=== PATIENT | female | born 1955 | race Two or more races ===

== ENCOUNTER 2016-07-08 09:26 | Emergency (ER) | payer MEDICAID ==
[~2016-07-08] VITALS: Ht 152.4 cm; Wt 88.9 kg
[~2016-07-08 09:26] MED LIST: ALB5IS INH; LEVO75TA42 PO; METF500T5 PO; OMEP20CA5 PO; VALS160T51 PO; ZOLP-158
[2016-07-08 09:30] VITALS: BP 159/70
[2016-07-08] MEDS ORDERED: KETOROLAC TROMETH 60MG/2ML VIAL IM ONE (11:45)
== END 2016-07-08 12:33 | disposition home or self-care (01) ==
LOC: ER 09:27
DX: M47.892 Other spondylosis, cervical region (principal); M50.30 Other cervical disc degeneration, unspecified cervical region; J45.909 Unspecified asthma, uncomplicated; E11.9 Type 2 diabetes mellitus without complications; K21.9 Gastro-esophageal reflux disease without esophagitis; E78.5 Hyperlipidemia, unspecified; I10 Essential (primary) hypertension; E07.89 Other specified disorders of thyroid; Z90.49 Acquired absence of other specified parts of digestive tract; Z90.89 Acquired absence of other organs; Z90.710 Acquired absence of both cervix and uterus; Z88.2 Allergy status to sulfonamides
CPT/HCPCS: 72040; 96372; 99284; J1885

== ENCOUNTER 2016-08-23 16:38 | Observation (INO) | payer MEDICAID ==
[~2016-08-23] VITALS: Ht 160 cm; Wt 84.4 kg
[2016-08-23] MEDS ORDERED: HYDROcodone-ACET 10/325MG TAB PO ONE (20:15)
[2016-08-23 20:17] LABS: Basophils # (auto) 0 uL; Basophils % (auto) 0.5 % (0.0-2.0); Eosinophils # (auto) 0.3 uL; Eosinophils % (auto) 3.4 % (0.0-7.0); Hematocrit 41.4 % (36.0-46.0); Hemoglobin 13.8 g/dL (12.2-16.2); Lymphocytes # (auto) 3.7 uL; Lymphocytes % (auto) 44.4 % (10.0-50.0); Mean Corpuscular Hgb Conc. 33.4 g/dL (32.0-36.0); Mean Corpuscular Volume 89.7 fL (80.0-100.0); Mean Platelet Volume 9.3 fL (7.4-10.4); Monocytes # (auto) 0.6 uL; Monocytes % (auto) 7.5 % (0.0-12.0); Neutrophils # (auto) 3.7 uL; Neutrophils % (auto) 44.2 % (37.0-80.0); Platelet Count (auto) 226 10^3/uL (140-450); White Blood Cell 8.3 10^3/uL (4.4-10.8)
[2016-08-23 20:17] LABS: Urine Bilirubin Negative (Negative); Urine Blood Negative /uL (Negative); Urine Color Yellow (Yellow); Urine Glucose Normal (Normal); Urine Ketone Negative (Negative); Urine Nitrite Negative (Negative); Urine RBC <1 /hpf (0 - 4); Urine Squamous Epithelial Cell FEW /hpf (<5); Urine Urobilinogen Normal (Negative)
[2016-08-23 20:40] LABS: INR 0.96 (0.9-1.15); Partial Thromboplastin Time 26.2 sec (22.64-33.71); Prothrombin Time 10.4 sec (9.37-12.3)
[2016-08-23 20:43] LABS: B-Type Natriuretic Peptide 6.76 pg/mL (0-100)
[2016-08-23 20:44] LABS: Albumin 3.6 g/dL (3.4-5.0); Alkaline Phosphatase 86 U/L (45-117); Anion Gap 10 (5-15); Aspartate Aminotransferase 46 U/L (15-37); BUN/Creatinine Ratio 17.9; Bilirubin, Total 0.4 mg/dL (0.2-1.0); Blood Urea Nitrogen 14 mg/dL (7-18); Calcium 9.2 mg/dL (8.5-10.1); Carbon Dioxide 24 mmol/L (21-32); Chloride 108 mmol/L (98-107); GFR African American 96 mL/min; GFR Non-African American 80 mL/min; Glucose 156 mg/dL (74-106); Magnesium 2.1 mg/dL (1.6-2.6); Sodium 142 mmol/L (136-145); Total Protein 7.8 g/dL (6.4-8.2)
[2016-08-23 20:57] LABS: Temperature: 22.9 C (20.0-25.0)
[2016-08-23 21:46] VITALS: BP 113/55
== END 2016-08-23 21:47 | disposition home or self-care (01) | DRG 203 ==
LOC: ER 16:47 → OVERFLOW 19:57 → ER 21:47
PROVIDERS: ADMIT Family Medicine; ATTEND Family Medicine
DX: R07.89 Other chest pain (principal); I10 Essential (primary) hypertension; E78.5 Hyperlipidemia, unspecified; E03.9 Hypothyroidism, unspecified; E11.9 Type 2 diabetes mellitus without complications
CPT/HCPCS: 36415; 71020; 71101; 80053; 81001; 83735; 83880; 84443; 84484; 85025; 85379; 85610; 85730; 93005; 99285; G0378

== ENCOUNTER 2017-07-25 10:08 | Emergency (ER) | payer MEDICAID ==
[~2017-07-25] VITALS: Ht 152.4 cm; Wt 81.6 kg
[~2017-07-25 10:08] MED LIST changes: -OMEP20CA5 PO; +OMEP20CA74 PO
[2017-07-25 11:32] LABS: Urine Bacteria FEW /hpf (None Seen); Urine Blood Negative /uL (Negative); Urine Mucus FEW (None Seen); Urine Specific Gravity 1.017 (1.001-1.035); Urine WBC 3 /hpf (0 - 5)
[2017-07-25 11:59] LABS: Basophils # (auto) 0.1 uL; Basophils % (auto) 1.2 % (0.0-2.0); Eosinophils # (auto) 0.1 uL; Hematocrit 42.7 % (36.0-46.0); Hemoglobin 14.5 g/dL (12.2-16.2); Lymphocytes # (auto) 2.5 uL; Lymphocytes % (auto) 37.9 % (10.0-50.0); Mean Corpuscular Hemoglobin 31.2 pg (28.0-32.0); Mean Corpuscular Hgb Conc. 33.9 g/dL (32.0-36.0); Mean Corpuscular Volume 92.1 fL (80.0-100.0); Monocytes # (auto) 0.5 uL; Monocytes % (auto) 7.7 % (0.0-12.0); Neutrophils # (auto) 3.3 uL; Neutrophils % (auto) 51.2 % (37.0-80.0); Nucleated Red Blood Cells % 0.2 %; Platelet Count (auto) 249 10^3/uL (140-450); Red Blood Cells 4.63 10^6/uL (4.0-5.20); Red Cell Distribution Width 14.3 % (11.8-14.3); White Blood Cell 6.5 10^3/uL (4.4-10.8)
[2017-07-25 12:20] VITALS: BP 144/70
[2017-07-25 12:21] LABS: Albumin 3.8 g/dL (3.4-5.0); BUN/Creatinine Ratio 16.2; Bilirubin, Total 0.6 mg/dL (0.2-1.0); Calcium 9.3 mg/dL (8.5-10.1); Potassium 4.3 mmol/L (3.5-5.1); Total Protein 8.1 g/dL (6.4-8.2)
== END 2017-07-25 12:37 | disposition home or self-care (01) ==
LOC: ER 10:08
DX: N39.0 Urinary tract infection, site not specified (principal); E11.9 Type 2 diabetes mellitus without complications; I10 Essential (primary) hypertension; E07.89 Other specified disorders of thyroid; J45.909 Unspecified asthma, uncomplicated; Z90.89 Acquired absence of other organs; Z90.710 Acquired absence of both cervix and uterus
CPT/HCPCS: 36415; 74176; 80053; 81001; 83690; 85025; 93005

== ENCOUNTER 2017-08-06 01:08 | Emergency (ER) | payer MEDICAID ==
[~2017-08-06] VITALS: Ht 152.4 cm; Wt 81.6 kg
[2017-08-06] MEDS ORDERED: ALBUTEROL SULF 2.5 MG/0.5ML(0.5%) NEB SOLN NEB ONE ×2 (02:00→11:45)
[2017-08-06] MEDS ORDERED: IPRATROPIUM BROM 0.5 MG/2.5ML INH SOL NEB ONE ×2 (02:00→11:45)
[2017-08-06 02:43] LABS: Basophils # (auto) 0.1 uL; Basophils % (auto) 0.7 % (0.0-2.0); Eosinophils # (auto) 0.2 uL; Eosinophils % (auto) 2.4 % (0.0-7.0); Hematocrit 43.1 % (36.0-46.0); Hemoglobin 14.5 g/dL (12.2-16.2); Lymphocytes # (auto) 3.5 uL; Lymphocytes % (auto) 42.4 % (10.0-50.0); Mean Corpuscular Hgb Conc. 33.7 g/dL (32.0-36.0); Monocytes # (auto) 0.7 uL; Monocytes % (auto) 8.4 % (0.0-12.0); Neutrophils # (auto) 3.9 uL; Neutrophils % (auto) 46.1 % (37.0-80.0); Nucleated Red Blood Cells % 0.1 %; Platelet Count (auto) 232 10^3/uL (140-450); Red Blood Cells 4.69 10^6/uL (4.0-5.20); Red Cell Distribution Width 14.6 % (11.8-14.3); White Blood Cell 8.4 10^3/uL (4.4-10.8)
[2017-08-06 03:11] LABS: INR 0.93 (0.9-1.15); Partial Thromboplastin Time 27.1 sec (22.64-33.71); Prothrombin Time 10.1 sec (9.37-12.3)
[2017-08-06 03:20] LABS: Alanine Aminotransferase 50 U/L (13-56); Albumin 3.6 g/dL (3.4-5.0); Anion Gap 8 (5-15); Aspartate Aminotransferase 35 U/L (15-37); BUN/Creatinine Ratio 19.4; Blood Urea Nitrogen 14 mg/dL (7-18); Calcium 8.8 mg/dL (8.5-10.1); Carbon Dioxide 25 mmol/L (21-32); Chloride 107 mmol/L (98-107); GFR African American 105 mL/min; GFR Non-African American 87 mL/min; Glucose 145 mg/dL (74-106); Magnesium 1.8 mg/dL (1.6-2.6); Potassium 4.2 mmol/L (3.5-5.1); Sodium 140 mmol/L (136-145)
[2017-08-06 03:25] LABS: Alkaline Phosphatase 89 U/L (45-117); Bilirubin, Total 0.4 mg/dL (0.2-1.0); Total Protein 7.8 g/dL (6.4-8.2)
[2017-08-06 08:38] LABS: Urine Bacteria NONE SEEN /hpf (None Seen); Urine Blood Negative /uL (Negative); Urine Mucus FEW (None Seen); Urine Specific Gravity 1.023 (1.001-1.035); Urine WBC 4 /hpf (0 - 5)
[2017-08-06 11:31] VITALS: BP 130/58
[2017-08-06] MEDS ORDERED: PROMETHAZINE W/CODEINE 5 ML ORAL SYRUP PO ONE (11:45)
== END 2017-08-06 12:51 | disposition home or self-care (01) ==
LOC: ER 01:10
DX: J45.901 Unspecified asthma with (acute) exacerbation (principal); G89.29 Other chronic pain; E11.9 Type 2 diabetes mellitus without complications; I10 Essential (primary) hypertension; E03.9 Hypothyroidism, unspecified; F41.9 Anxiety disorder, unspecified; K21.9 Gastro-esophageal reflux disease without esophagitis
CPT/HCPCS: 36415; 71045; 80053; 81001; 83735; 83880; 84484; 85025; 85610; 85730; 93005; 94640

== ENCOUNTER 2017-10-16 19:22 | Emergency (ER) | payer MEDICAID ==
[~2017-10-16] VITALS: Ht 152.4 cm; Wt 84.4 kg
[2017-10-16] MEDS ORDERED: SODIUM CHLORIDE 0.9% 500 ML IVB ONE (20:04)
[2017-10-16] MEDS ORDERED: HYDROmorphone HCL 2 MG/ML VL IV ONE (20:15)
[2017-10-16] MEDS ORDERED: ONDANSETRON HCL 4 MG/2 ML VIAL IV ONE (20:15)
[2017-10-16 20:24] LABS: Basophils # (auto) 0 uL; Basophils % (auto) 0.5 % (0.0-2.0); Eosinophils # (auto) 0.1 uL; Eosinophils % (auto) 1.5 % (0.0-7.0); Hematocrit 43.4 % (36.0-46.0); Hemoglobin 14.7 g/dL (12.2-16.2); Lymphocytes % (auto) 36.7 % (10.0-50.0); Mean Corpuscular Hemoglobin 31.3 pg (28.0-32.0); Mean Corpuscular Volume 92.1 fL (80.0-100.0); Monocytes # (auto) 0.6 uL; Monocytes % (auto) 7.4 % (0.0-12.0); Neutrophils # (auto) 4.4 uL; Neutrophils % (auto) 53.9 % (37.0-80.0); Nucleated Red Blood Cells % 0.5 %; Platelet Count (auto) 245 10^3/uL (140-450); Red Blood Cells 4.71 10^6/uL (4.0-5.20); Red Cell Distribution Width 14.2 % (11.8-14.3); White Blood Cell 8.2 10^3/uL (4.4-10.8)
[2017-10-16 20:31] LABS: INR 0.95 (0.9-1.15); Partial Thromboplastin Time 28.8 sec (23.78-33.04); Prothrombin Time 10.2 sec (9.27-12.13)
[2017-10-16 21:01] LABS: Alanine Aminotransferase 53 U/L (13-56); Albumin 3.7 g/dL (3.4-5.0); Alkaline Phosphatase 94 U/L (45-117); Amylase 22 U/L (25-115); Anion Gap 12 (5-15); Aspartate Aminotransferase 46 U/L (15-37); BUN/Creatinine Ratio 14.3; Bilirubin, Total 0.5 mg/dL (0.2-1.0); Blood Urea Nitrogen 12 mg/dL (7-18); Calcium 8.8 mg/dL (8.5-10.1); Carbon Dioxide 23 mmol/L (21-32); Chloride 103 mmol/L (98-107); GFR African American 88 mL/min; GFR Non-African American 73 mL/min; Glucose 236 mg/dL (74-106); Lipase 124 U/L (73-393); Magnesium 2.1 mg/dL (1.6-2.6); Potassium 4.4 mmol/L (3.5-5.1); Sodium 138 mmol/L (136-145); Total Protein 7.9 g/dL (6.4-8.2)
[2017-10-16 22:52] VITALS: BP 114/63
[2017-10-16] MEDS ORDERED: HYDROcodone-ACET 7.5/325MG TAB PO ONE (23:00)
[2017-10-16 23:01] LABS: Urine Bacteria FEW /hpf (None Seen); Urine Blood Negative /uL (Negative); Urine WBC 8 /hpf (0 - 5)
[2017-10-16] MEDS ORDERED: cefTRIAXone 1GM/10ml IVPUSH 10 ML IV ONE (23:15)
== END 2017-10-16 23:47 | disposition home or self-care (01) ==
LOC: ER 19:22
DX: R10.84 Generalized abdominal pain (principal); E11.9 Type 2 diabetes mellitus without complications; I10 Essential (primary) hypertension; J45.909 Unspecified asthma, uncomplicated; K21.9 Gastro-esophageal reflux disease without esophagitis; E78.5 Hyperlipidemia, unspecified; Z90.49 Acquired absence of other specified parts of digestive tract; Z90.710 Acquired absence of both cervix and uterus
CPT/HCPCS: 36415; 74176; 80053; 81001; 82150; 83690; 83735; 84484; 85025; 85610; 85730; 94761; 96374; 96375; 99285; J1170; J2405; J7030; 93005

== ENCOUNTER 2017-12-31 16:47 | Inpatient (IN) | payer MEDICAID ==
[~2017-12-31] VITALS: Ht 152.4 cm; Wt 85.5 kg
[2017-12-31 17:45] LABS: Urine Bacteria NONE SEEN /hpf (None Seen); Urine Blood Negative /uL (Negative); Urine Mucus FEW (None Seen); Urine Specific Gravity 1.006 (1.001-1.035); Urine WBC 1 /hpf (0 - 5)
[2017-12-31 18:07] LABS: Basophils # (auto) 0.1 uL; Basophils % (auto) 1.1 % (0.0-2.0); Eosinophils # (auto) 0.1 uL; Eosinophils % (auto) 1.1 % (0.0-7.0); Hematocrit 42.2 % (36.0-46.0); Hemoglobin 14.2 g/dL (12.2-16.2); Lymphocytes % (auto) 23.4 % (10.0-50.0); Mean Corpuscular Hgb Conc. 33.6 g/dL (32.0-36.0); Monocytes # (auto) 1.1 uL; Monocytes % (auto) 8.7 % (0.0-12.0); Neutrophils # (auto) 8.4 uL; Neutrophils % (auto) 65.7 % (37.0-80.0); Nucleated Red Blood Cells % 0.1 %; Platelet Count (auto) 229 10^3/uL (140-450); Red Blood Cells 4.59 10^6/uL (4.0-5.20); Red Cell Distribution Width 14.8 % (11.8-14.3); White Blood Cell 12.7 10^3/uL (4.4-10.8)
[2017-12-31 18:26] LABS: Alanine Aminotransferase 66 U/L (13-56); Albumin 3.8 g/dL (3.4-5.0); Amylase 20 U/L (25-115); Anion Gap 13 (5-15); Aspartate Aminotransferase 67 U/L (15-37); BUN/Creatinine Ratio 17.5; Blood Urea Nitrogen 17 mg/dL (7-18); Calcium 9.4 mg/dL (8.5-10.1); Carbon Dioxide 22 mmol/L (21-32); Chloride 104 mmol/L (98-107); GFR African American 75 mL/min; GFR Non-African American 62 mL/min; Glucose 130 mg/dL (74-106); Lipase 102 U/L (73-393); Magnesium 1.9 mg/dL (1.6-2.6); Potassium 4.1 mmol/L (3.5-5.1); Sodium 139 mmol/L (136-145)
[2017-12-31 18:32] LABS: Alkaline Phosphatase 72 U/L (45-117); Bilirubin, Total 0.7 mg/dL (0.2-1.0); Total Protein 7.9 g/dL (6.4-8.2)
[2017-12-31] MEDS ORDERED: PROMETHAZINE HCL 25 MG/ML 1ML IV ONE (19:00)
[2017-12-31] MEDS ORDERED: MORPHINE SULFATE 4 MG/ML SYR/VIAL IV ONE (19:00)
[2017-12-31] MEDS ORDERED: SODIUM CHLORIDE 0.9% 500 ML IV ONE (19:00)
[2017-12-31] MEDS ORDERED: ZOLPIDEM TARTRATE 5 MG TAB PO PRN (21:00)
[2017-12-31] MEDS ORDERED: ACETAMINOPHEN 500 MG TAB PO PRN (21:00)
[2017-12-31] MEDS ORDERED: metroNIDAZOLE 500MG/100ML 100 ML IV ONE (22:15)
[2017-12-31] MEDS: HYDROcodone-ACET 5/325MG TAB PO PRN (23:19)
[2017-12-31] MEDS: SODIUM CHLORIDE 0.9% 1,000 ML IV SCH (23:25)
[2017-12-31 23:28] VITALS: BP 146/78
[2018-01-01] MEDS ORDERED: HYDR-531 PO (01:00)
[2018-01-01] MEDS ORDERED: LEVO112T35 PO (01:00)
[2018-01-01] MEDS ORDERED: LOSA100T27 PO (01:00)
[2018-01-01] MEDS ORDERED: METF-370 PO (01:00)
[2018-01-01] MEDS: PROMETHAZINE HCL 25 MG/ML 1ML IV PRN ×3 (03:58→09:04)
[2018-01-01] MEDS: MORPHINE SULF INJ 2 MG/ML SYRINGE 1ML IV PRN ×2 (03:58)
[2018-01-01 05:00] VITALS: BP 131/69
[2018-01-01] MEDS: LEVOTHYROXINE SODIUM 112 MCG TAB PO SCH (06:45)
[2018-01-01] MEDS ORDERED: LEVOTHYROXINE SODIUM 112 MCG TAB PO SCH (07:00)
[2018-01-01 07:32] LABS: Basophils # (auto) 0.1 uL; Basophils % (auto) 0.9 % (0.0-2.0); Eosinophils # (auto) 0.1 uL; Eosinophils % (auto) 0.8 % (0.0-7.0); Hematocrit 38.8 % (36.0-46.0); Hemoglobin 13.1 g/dL (12.2-16.2); Lymphocytes # (auto) 2.8 uL; Mean Corpuscular Hemoglobin 31.2 pg (28.0-32.0); Mean Corpuscular Hgb Conc. 33.8 g/dL (32.0-36.0); Mean Corpuscular Volume 92.5 fL (80.0-100.0); Monocytes % (auto) 11.4 % (0.0-12.0); Neutrophils # (auto) 4.8 uL; Neutrophils % (auto) 54.9 % (37.0-80.0); Nucleated Red Blood Cells % 0.1 %; Platelet Count (auto) 186 10^3/uL (140-450); Red Blood Cells 4.19 10^6/uL (4.0-5.20); Red Cell Distribution Width 14.8 % (11.8-14.3); White Blood Cell 8.7 10^3/uL (4.4-10.8)
[2018-01-01 07:45] LABS: BUN/Creatinine Ratio 14.4; Calcium 8.5 mg/dL (8.5-10.1); Potassium 4.1 mmol/L (3.5-5.1)
[2018-01-01 08:30] VITALS: BP 116/63
[2018-01-01] MEDS: LOSARTAN POTASSIUM 50 MG TAB PO SCH (09:05)
[2018-01-01] MEDS: SODIUM CHLORIDE 0.9% 1,000 ML IV SCH (09:10)
[2018-01-01] MEDS: HYDROcodone-ACET 5/325MG TAB PO PRN ×2 (11:12→18:08)
[2018-01-01 12:30] VITALS: BP 135/75
[2018-01-01 16:30] VITALS: BP 114/56
[2018-01-01] MEDS: cefTRIAXone 1GM/10ml IVPUSH 10 ML IV SCH (17:00)
[2018-01-01 22:00] VITALS: BP 129/71
[2018-01-02 05:00] VITALS: BP 136/70
[2018-01-02] MEDS: LEVOTHYROXINE SODIUM 112 MCG TAB PO SCH (06:20)
[2018-01-02 07:34] LABS: Basophils # (auto) 0.1 uL; Basophils % (auto) 0.8 % (0.0-2.0); Eosinophils # (auto) 0.2 uL; Eosinophils % (auto) 2.2 % (0.0-7.0); Hematocrit 37.7 % (36.0-46.0); Hemoglobin 12.9 g/dL (12.2-16.2); Lymphocytes # (auto) 2.1 uL; Lymphocytes % (auto) 29.2 % (10.0-50.0); Mean Corpuscular Hemoglobin 31.5 pg (28.0-32.0); Mean Corpuscular Hgb Conc. 34.1 g/dL (32.0-36.0); Mean Corpuscular Volume 92.3 fL (80.0-100.0); Monocytes # (auto) 0.7 uL; Monocytes % (auto) 9.3 % (0.0-12.0); Neutrophils # (auto) 4.3 uL; Neutrophils % (auto) 58.5 % (37.0-80.0); Platelet Count (auto) 179 10^3/uL (140-450); Red Blood Cells 4.09 10^6/uL (4.0-5.20); Red Cell Distribution Width 14.6 % (11.8-14.3); White Blood Cell 7.3 10^3/uL (4.4-10.8)
[2018-01-02 07:50] LABS: BUN/Creatinine Ratio 12.9; Calcium 8.4 mg/dL (8.5-10.1); Potassium 3.8 mmol/L (3.5-5.1)
[2018-01-02] MEDS: HYDROcodone-ACET 5/325MG TAB PO PRN ×3 (08:34→23:39)
[2018-01-02 09:00] VITALS: BP 139/71
[2018-01-02] MEDS: LOSARTAN POTASSIUM 50 MG TAB PO SCH (09:43)
[2018-01-02] MEDS: cefTRIAXone 1GM/10ml IVPUSH 10 ML IV SCH (09:47)
[2018-01-02] MEDS: SODIUM CHLORIDE 0.9% 1,000 ML IV SCH ×4 (09:47→18:06)
[2018-01-02] MEDS ORDERED: LACTULOSE 20Gm/30ML SOLN PO ONE (11:00)
[2018-01-02 13:00] VITALS: BP 140/72
[2018-01-02 17:00] VITALS: BP 133/72
[2018-01-02 22:00] VITALS: BP 155/82
[2018-01-03] MEDS: SODIUM CHLORIDE 0.9% 1,000 ML IV SCH ×2 (04:40→11:00)
[2018-01-03 05:00] VITALS: BP 158/79
[2018-01-03] MEDS: LEVOTHYROXINE SODIUM 112 MCG TAB PO SCH (05:50)
[2018-01-03] MEDS: HYDROcodone-ACET 5/325MG TAB PO PRN (05:56)
[2018-01-03 07:33] LABS: Calcium 8.2 mg/dL (8.5-10.1); Potassium 3.7 mmol/L (3.5-5.1)
[2018-01-03 09:00] VITALS: BP 142/72
[2018-01-03] MEDS: cefTRIAXone 1GM/10ml IVPUSH 10 ML IV SCH (09:27)
[2018-01-03] MEDS ORDERED: LACTULOSE 20Gm/30ML SOLN PO SCH (10:00)
[2018-01-03] MEDS ORDERED: AMLO5TAB2 PO (11:12)
[2018-01-03] MEDS ORDERED: GLIP-115 PO (11:12)
[2018-01-03] MEDS ORDERED: amLODIPine BESYLATE 5 MG TAB PO ONE (11:15)
[2018-01-03 13:00] VITALS: BP 140/70
== END 2018-01-03 13:50 | disposition home or self-care (01) | DRG 463 ==
LOC: ER 16:47 → OVERFLOW 16:48 → EAST 23:29
PROVIDERS: ADMIT Nurse Practitioner Family; ATTEND Internal Medicine
DX: N10 Acute pyelonephritis (principal); N17.0 Acute kidney failure with tubular necrosis; E87.2 Acidosis; K42.9 Umbilical hernia without obstruction or gangrene; K52.9 Noninfective gastroenteritis and colitis, unspecified; I10 Essential (primary) hypertension; E66.01 Morbid (severe) obesity due to excess calories; E11.9 Type 2 diabetes mellitus without complications; E03.9 Hypothyroidism, unspecified; J45.909 Unspecified asthma, uncomplicated; K21.9 Gastro-esophageal reflux disease without esophagitis; Z82.49 Family history of ischemic heart disease and other diseases of the circulatory system; Z82.5 Family history of asthma and other chronic lower respiratory diseases; Z83.3 Family history of diabetes mellitus; Z80.0 Family history of malignant neoplasm of digestive organs; Z90.710 Acquired absence of both cervix and uterus; Z90.49 Acquired absence of other specified parts of digestive tract; Z87.440 Personal history of urinary (tract) infections; T38.3X5A Adverse effect of insulin and oral hypoglycemic [antidiabetic] drugs, initial encounter; Y92.89 Other specified places as the place of occurrence of the external cause; Z68.36 Body mass index [BMI] 36.0-36.9, adult; Z88.1 Allergy status to other antibiotic agents; Z88.2 Allergy status to sulfonamides
CPT/HCPCS: 36415; 74176; 76775; 80048; 80053; 81001; 82150; 82962; 83605; 83690; 83735; 84443; 84484; 85025; 87040; 87086; 93005; 94761; 96361; 96365; 96375; J0696; J3490

== ENCOUNTER 2018-02-15 09:52 | Emergency (ER) | payer MEDICAID ==
[~2018-02-15] VITALS: Ht 152.4 cm; Wt 83.0 kg
[~2018-02-15 09:52] MED LIST changes: +AMLO5TAB13 PO; +GLIP-115 PO; +HYDR-531 PO; +LEVO112T35 PO; -LEVO75TA42 PO; -METF500T5 PO; -VALS160T51 PO; -ZOLP-158
[2018-02-15 09:59] VITALS: BP 149/71
[2018-02-15] MEDS ORDERED: cefTRIAXone SOD 1,000 MG VL IM ONE (10:45)
== END 2018-02-15 11:14 | disposition home or self-care (01) ==
LOC: ER 09:52
DX: N39.0 Urinary tract infection, site not specified (principal); J45.909 Unspecified asthma, uncomplicated; E11.9 Type 2 diabetes mellitus without complications; K21.9 Gastro-esophageal reflux disease without esophagitis; E78.5 Hyperlipidemia, unspecified; I10 Essential (primary) hypertension; E07.9 Disorder of thyroid, unspecified; Z90.49 Acquired absence of other specified parts of digestive tract; Z90.710 Acquired absence of both cervix and uterus; Z88.2 Allergy status to sulfonamides; Z88.1 Allergy status to other antibiotic agents; Z79.84 Long term (current) use of oral hypoglycemic drugs; Z79.899 Other long term (current) drug therapy
CPT/HCPCS: 81002; 96372; 99283; J0696

== ENCOUNTER 2018-02-27 22:01 | Emergency (ER) | payer MEDICAID ==
[~2018-02-27] VITALS: Ht 152.4 cm; Wt 80.7 kg
[2018-02-27 22:49] VITALS: BP 147/79
[2018-02-28] MEDS ORDERED: KETOROLAC TROMETH 60MG/2ML VIAL IM ONE (03:00)
[2018-02-28] MEDS ORDERED: methylPREDNISolone SOD SUCC 125 MG/2 ML VL IM ONE (03:00)
[2018-02-28] MEDS ORDERED: ACETAMINOPHEN/CODEINE#3 (300/30mg) TAB PO ONE (03:45)
== END 2018-02-28 04:12 | disposition home or self-care (01) ==
LOC: ER 22:11
DX: S52.502A Unspecified fracture of the lower end of left radius, initial encounter for closed fracture (principal); J45.909 Unspecified asthma, uncomplicated; E11.9 Type 2 diabetes mellitus without complications; K21.9 Gastro-esophageal reflux disease without esophagitis; E78.5 Hyperlipidemia, unspecified; I10 Essential (primary) hypertension; Z90.49 Acquired absence of other specified parts of digestive tract; Z90.710 Acquired absence of both cervix and uterus; Z88.1 Allergy status to other antibiotic agents; Z88.2 Allergy status to sulfonamides; W01.0XXA Fall on same level from slipping, tripping and stumbling without subsequent striking against object, initial encounter; Y93.01 Activity, walking, marching and hiking; Y92.090 Kitchen in other non-institutional residence as the place of occurrence of the external cause; Y99.8 Other external cause status
CPT/HCPCS: 29125; 70450; 73030; 73070; 73100; 73120; 73560

== ENCOUNTER 2018-03-02 07:38 | Inpatient (IN) | payer MEDICAID ==
[~2018-03-02] VITALS: Ht 152.4 cm; Wt 74.5 kg
[2018-03-02] MEDS ORDERED: SODIUM CHLORIDE 0.9% 1,000 ML IV ONE (08:30)
[2018-03-02] MEDS ORDERED: metroNIDAZOLE 500 MG TAB PO ONE (08:30)
[2018-03-02] MEDS ORDERED: ONDANSETRON HCL 4 MG/2 ML VIAL IV ONE (08:30)
[2018-03-02 08:34] LABS: Urine Bacteria NONE SEEN /hpf (None Seen); Urine Blood Negative /uL (Negative); Urine Mucus FEW (None Seen); Urine Specific Gravity 1.021 (1.001-1.035); Urine WBC 2 /hpf (0 - 5)
[2018-03-02] MEDS ORDERED: MORPHINE SULFATE 4 MG/ML SYR/VIAL IV ONE (08:45)
[2018-03-02] MEDS ORDERED: cefTRIAXone 1GM/50ML D5W 50 ML IV ONE ×2 (08:45→14:15)
[2018-03-02 08:52] LABS: Basophils # (auto) 0.1 uL; Basophils % (auto) 0.7 % (0.0-2.0); Eosinophils # (auto) 0 uL; Eosinophils % (auto) 0.4 % (0.0-7.0); Hematocrit 40.9 % (36.0-46.0); Lymphocytes # (auto) 0.9 uL; Lymphocytes % (auto) 13.6 % (10.0-50.0); Mean Corpuscular Hemoglobin 31.1 pg (28.0-32.0); Mean Corpuscular Hgb Conc. 34.1 g/dL (32.0-36.0); Mean Corpuscular Volume 91.2 fL (80.0-100.0); Monocytes # (auto) 0.2 uL; Monocytes % (auto) 3.1 % (0.0-12.0); Neutrophils # (auto) 5.7 uL; Neutrophils % (auto) 82.2 % (37.0-80.0); Nucleated Red Blood Cells % 0.1 %; Platelet Count (auto) 230 10^3/uL (140-450); Red Blood Cells 4.49 10^6/uL (4.0-5.20); Red Cell Distribution Width 13.7 % (11.8-14.3)
[2018-03-02 09:07] LABS: Amylase 16 U/L (25-115); Lipase 88 U/L (73-393)
[2018-03-02 09:11] LABS: Alanine Aminotransferase 61 U/L (13-56); Anion Gap 14 (5-15); Aspartate Aminotransferase 55 U/L (15-37); Blood Urea Nitrogen 13 mg/dL (7-18); Calcium 9.3 mg/dL (8.5-10.1); Carbon Dioxide 23 mmol/L (21-32); Chloride 98 mmol/L (98-107); GFR African American 66 mL/min; GFR Non-African American 54 mL/min; Glucose 245 mg/dL (74-106); Potassium 3.9 mmol/L (3.5-5.1); Sodium 135 mmol/L (136-145)
[2018-03-02 09:15] LABS: Alkaline Phosphatase 70 U/L (45-117); Bilirubin, Total 1.1 mg/dL (0.2-1.0); Total Protein 8.7 g/dL (6.4-8.2)
[2018-03-02] MEDS ORDERED: HYDROcodone-ACET 10/325MG TAB PO ONE (12:00)
[2018-03-02] MEDS ORDERED: traMADol HCL 50 MG TAB PO PRN (14:15)
[2018-03-02] MEDS ORDERED: ACETAMINOPHEN 500 MG TAB PO PRN (14:15)
[2018-03-02] MEDS ORDERED: DEXTROSE (50%) 50ML SYRG IV PRN (14:15)
[2018-03-02] MEDS ORDERED: MORPHINE SULFATE 4 MG/ML SYR/VIAL IV PRN ×2 (14:15)
[2018-03-02] MEDS ORDERED: LORazepam 0.5 MG TAB PO PRN (14:15)
[2018-03-02] MEDS ORDERED: NITROGLYCERIN 0.4 MG SL TAB SL PRN (14:15)
[2018-03-02] MEDS: SODIUM CHLORIDE 0.9% 1,000 ML IV SCH (14:45)
[2018-03-02] MEDS: metroNIDAZOLE 500MG/100ML 100 ML IV SCH ×2 (14:46→21:42)
[2018-03-02] MEDS: FAMOTIDINE (10MG/ML) 2ML VL IV SCH (14:57)
[2018-03-02 15:36] VITALS: BP 123/66
[2018-03-02] MEDS: ACCU-CHEK COMFORT CURVE STRIP VI SCH ×2 (16:00→20:01)
[2018-03-02] MEDS: InsuLIN REG 1unit/0.01ml Soln (100units/ml) SC SCH ×2 (16:00→20:00)
[2018-03-02] MEDS ORDERED: METF-370 PO (16:06)
[2018-03-02 16:19] VITALS: BP 123/66
[2018-03-02] MEDS: glipiZIDE 5 MG TAB PO SCH (17:21)
[2018-03-02] MEDS: ONDANSETRON HCL 4 MG/2 ML VIAL IV PRN ×2 (17:27→21:42)
[2018-03-02 22:00] VITALS: BP 131/63
[2018-03-03] MEDS: ACCU-CHEK COMFORT CURVE STRIP VI SCH ×7 (00:12→23:41)
[2018-03-03] MEDS: SODIUM CHLORIDE 0.9% 1,000 ML IV SCH ×3 (00:12→20:15)
[2018-03-03] MEDS: InsuLIN REG 1unit/0.01ml Soln (100units/ml) SC SCH ×7 (00:13→23:41)
[2018-03-03] MEDS: FAMOTIDINE (10MG/ML) 2ML VL IV SCH ×2 (02:04→15:43)
[2018-03-03] MEDS: ONDANSETRON HCL 4 MG/2 ML VIAL IV PRN ×3 (02:04→12:17)
[2018-03-03 05:00] VITALS: BP 126/66
[2018-03-03] MEDS: metroNIDAZOLE 500MG/100ML 100 ML IV SCH ×2 (06:32→15:43)
[2018-03-03] MEDS: LEVOTHYROXINE SODIUM 112 MCG TAB PO SCH (06:32)
[2018-03-03 07:21] LABS: BUN/Creatinine Ratio 9.9; Potassium 3.4 mmol/L (3.5-5.1)
[2018-03-03 07:24] LABS: Bilirubin, Total 0.4 mg/dL (0.2-1.0); Total Protein 6.5 g/dL (6.4-8.2)
[2018-03-03 08:00] VITALS: BP 135/68
[2018-03-03] MEDS: glipiZIDE 5 MG TAB PO SCH ×2 (08:13→17:06)
[2018-03-03 09:00] VITALS: BP 135/68
[2018-03-03] MEDS ORDERED: cefTRIAXone 1GM/50ML D5W 50 ML IV SCH (09:00)
[2018-03-03] MEDS ORDERED: amLODIPine BESYLATE 5 MG TAB PO SCH (10:00)
[2018-03-03] MEDS ORDERED: LOSA-46 PO (11:22)
[2018-03-03] MEDS: PANTOPRAZOLE 40 MG TAB PO SCH (12:17)
[2018-03-03] MEDS: LOSARTAN POTASSIUM 50 MG TAB PO SCH (12:17)
[2018-03-03 13:00] VITALS: BP 127/69
[2018-03-03 13:15] LABS: Cholesterol 124 mg/dL (< 200)
[2018-03-03 13:17] LABS: HDL Cholesterol 31 mg/dL (40-59); LDL Cholesterol 78 mg/dL (< 100); Triglycerides 183 mg/dL (< 150)
[2018-03-03 17:00] VITALS: BP 128/80
[2018-03-03 22:00] VITALS: BP 149/78
[2018-03-03] MEDS: VANCOMYCIN HCL 125MG/5ML ORAL SOL PO SCH (22:00)
[2018-03-04] MEDS: TEMAZEPAM 15 MG CAP PO PRN ×2 (01:15→21:31)
[2018-03-04] MEDS: FAMOTIDINE (10MG/ML) 2ML VL IV SCH ×2 (02:10→15:34)
[2018-03-04] MEDS: InsuLIN REG 1unit/0.01ml Soln (100units/ml) SC SCH ×5 (04:00→20:00)
[2018-03-04] MEDS: ACCU-CHEK COMFORT CURVE STRIP VI SCH ×5 (04:28→20:30)
[2018-03-04 05:00] VITALS: BP 115/51
[2018-03-04] MEDS: LEVOTHYROXINE SODIUM 112 MCG TAB PO SCH (06:42)
[2018-03-04] MEDS: SODIUM CHLORIDE 0.9% 1,000 ML IV SCH ×2 (06:42→18:23)
[2018-03-04] MEDS: VANCOMYCIN HCL 125MG/5ML ORAL SOL PO SCH ×4 (06:43→21:31)
[2018-03-04] MEDS: glipiZIDE 5 MG TAB PO SCH ×2 (08:15→18:20)
[2018-03-04 09:00] VITALS: BP 125/72
[2018-03-04] MEDS: PANTOPRAZOLE 40 MG TAB PO SCH (09:50)
[2018-03-04] MEDS: LOSARTAN POTASSIUM 50 MG TAB PO SCH (09:57)
[2018-03-04 13:00] VITALS: BP 95/56
[2018-03-04 13:59] LABS: Basophils # (auto) 0 uL; Basophils % (auto) 0.8 % (0.0-2.0); Eosinophils # (auto) 0.3 uL; Eosinophils % (auto) 5.8 % (0.0-7.0); Hematocrit 34.5 % (36.0-46.0); Hemoglobin 11.5 g/dL (12.2-16.2); Lymphocytes # (auto) 1.9 uL; Lymphocytes % (auto) 37.3 % (10.0-50.0); Mean Corpuscular Hemoglobin 31.2 pg (28.0-32.0); Mean Corpuscular Hgb Conc. 33.4 g/dL (32.0-36.0); Mean Corpuscular Volume 93.3 fL (80.0-100.0); Monocytes # (auto) 0.4 uL; Monocytes % (auto) 8.5 % (0.0-12.0); Neutrophils # (auto) 2.4 uL; Neutrophils % (auto) 47.6 % (37.0-80.0); Nucleated Red Blood Cells % 0.1 %; Platelet Count (auto) 170 10^3/uL (140-450); Red Cell Distribution Width 13.7 % (11.8-14.3); White Blood Cell 5.1 10^3/uL (4.4-10.8)
[2018-03-04 14:14] LABS: Albumin 2.9 g/dL (3.4-5.0); BUN/Creatinine Ratio 6.9; Bilirubin, Total 0.3 mg/dL (0.2-1.0); Calcium 7.5 mg/dL (8.5-10.1); Total Protein 6.5 g/dL (6.4-8.2)
[2018-03-04 17:00] VITALS: BP 131/72
[2018-03-04] MEDS ORDERED: POTASSIUM CHL 20 Meq TABLET PO ONE (18:30)
[2018-03-04 22:00] VITALS: BP 142/79
[2018-03-05] VITALS (8 sets, daily range): BP systolic 109–159; BP diastolic 70–81
[2018-03-05] MEDS: ACCU-CHEK COMFORT CURVE STRIP VI SCH ×6 (00:59→21:14)
[2018-03-05] MEDS: SODIUM CHLORIDE 0.9% 1,000 ML IV SCH ×3 (00:59→21:14)
[2018-03-05] MEDS: FAMOTIDINE (10MG/ML) 2ML VL IV SCH ×2 (00:59→16:17)
[2018-03-05] MEDS: InsuLIN REG 1unit/0.01ml Soln (100units/ml) SC SCH ×6 (04:00→20:00)
[2018-03-05] MEDS: VANCOMYCIN HCL 125MG/5ML ORAL SOL PO SCH ×4 (05:55→21:14)
[2018-03-05] MEDS: LEVOTHYROXINE SODIUM 112 MCG TAB PO SCH (05:55)
[2018-03-05] MEDS: glipiZIDE 5 MG TAB PO SCH ×2 (08:35→18:15)
[2018-03-05] MEDS: PANTOPRAZOLE 40 MG TAB PO SCH (08:35)
[2018-03-05] MEDS: LOSARTAN POTASSIUM 50 MG TAB PO SCH (08:36)
[2018-03-05 10:09] LABS: Hepatitis B Surface Antibody Negative
[2018-03-05 10:48] LABS: Hepatitis A Total Antibody Negative
[2018-03-05 13:35] LABS: Hepatitis B Core Total AB Negative; Hepatitis B Surface Antigen Negative (Negative); Hepatitis C Antibody Negative (Negative)
[2018-03-05] MEDS: ALBUTEROL SULF 2.5 MG/0.5ML(0.5%) NEB SOLN NEB PRN (22:57)
[2018-03-06] MEDS: ACCU-CHEK COMFORT CURVE STRIP VI SCH ×6 (00:16→20:12)
[2018-03-06] MEDS: FAMOTIDINE (10MG/ML) 2ML VL IV SCH ×2 (00:16→14:15)
[2018-03-06] MEDS: InsuLIN REG 1unit/0.01ml Soln (100units/ml) SC SCH ×6 (04:00→20:12)
[2018-03-06 05:00] VITALS: BP 133/67
[2018-03-06] MEDS: VANCOMYCIN HCL 125MG/5ML ORAL SOL PO SCH ×4 (06:00→21:33)
[2018-03-06] MEDS: LEVOTHYROXINE SODIUM 112 MCG TAB PO SCH (06:01)
[2018-03-06] MEDS: ALBUTEROL SULF 2.5 MG/0.5ML(0.5%) NEB SOLN NEB PRN ×2 (08:45→23:22)
[2018-03-06 08:53] LABS: Anion Gap 9 (5-15); BUN/Creatinine Ratio 7.8; Blood Urea Nitrogen 6 mg/dL (7-18); Calcium 7.9 mg/dL (8.5-10.1); Carbon Dioxide 20 mmol/L (21-32); Chloride 111 mmol/L (98-107); GFR African American 97 mL/min; GFR Non-African American 80 mL/min; Glucose 142 mg/dL (74-106); Potassium 3.6 mmol/L (3.5-5.1); Sodium 140 mmol/L (136-145)
[2018-03-06 09:00] VITALS: BP 138/75
[2018-03-06] MEDS: PANTOPRAZOLE 40 MG TAB PO SCH (09:15)
[2018-03-06] MEDS: LOSARTAN POTASSIUM 50 MG TAB PO SCH (09:17)
[2018-03-06] MEDS: glipiZIDE 5 MG TAB PO SCH ×2 (09:19→17:58)
[2018-03-06] MEDS: SODIUM CHLORIDE 0.9% 1,000 ML IV SCH ×2 (09:20→17:58)
[2018-03-06 13:00] VITALS: BP 139/71
[2018-03-06 16:51] VITALS: BP 145/71
[2018-03-06] MEDS: FAMOTIDINE 20 MG TAB PO SCH (21:32)
[2018-03-06 22:00] VITALS: BP 155/75
[2018-03-06] MEDS: TEMAZEPAM 15 MG CAP PO PRN (22:10)
[2018-03-07] MEDS: ACCU-CHEK COMFORT CURVE STRIP VI SCH ×4 (00:04→11:46)
[2018-03-07] MEDS: SODIUM CHLORIDE 0.9% 1,000 ML IV SCH (03:50)
[2018-03-07] MEDS: InsuLIN REG 1unit/0.01ml Soln (100units/ml) SC SCH ×4 (04:00→12:06)
[2018-03-07 04:54] VITALS: BP 127/59
[2018-03-07] MEDS: LEVOTHYROXINE SODIUM 112 MCG TAB PO SCH (06:30)
[2018-03-07] MEDS: VANCOMYCIN HCL 125MG/5ML ORAL SOL PO SCH ×2 (06:31→12:06)
[2018-03-07] MEDS: glipiZIDE 5 MG TAB PO SCH (08:25)
[2018-03-07 09:00] VITALS: BP 143/76
[2018-03-07] MEDS: FAMOTIDINE 20 MG TAB PO SCH (10:08)
[2018-03-07] MEDS: PANTOPRAZOLE 40 MG TAB PO SCH (10:08)
[2018-03-07] MEDS: LOSARTAN POTASSIUM 50 MG TAB PO SCH (10:09)
== END 2018-03-07 13:10 | disposition home or self-care (01) | DRG 248 ==
LOC: ER 07:38 → TELE 07:39 → TELE-WESTW 15:15
PROVIDERS: ADMIT Internal Medicine; ATTEND Internal Medicine Pulmonary Disease
DX: A04.72 Enterocolitis due to Clostridium difficile, not specified as recurrent (principal); E44.0 Moderate protein-calorie malnutrition; S52.501A Unspecified fracture of the lower end of right radius, initial encounter for closed fracture; E11.65 Type 2 diabetes mellitus with hyperglycemia; K52.9 Noninfective gastroenteritis and colitis, unspecified; I10 Essential (primary) hypertension; N39.0 Urinary tract infection, site not specified; E03.9 Hypothyroidism, unspecified; E78.5 Hyperlipidemia, unspecified; E87.6 Hypokalemia; F41.9 Anxiety disorder, unspecified; K57.90 Diverticulosis of intestine, part unspecified, without perforation or abscess without bleeding; M19.90 Unspecified osteoarthritis, unspecified site; J45.909 Unspecified asthma, uncomplicated; W19.XXXA Unspecified fall, initial encounter; K21.9 Gastro-esophageal reflux disease without esophagitis; Z82.49 Family history of ischemic heart disease and other diseases of the circulatory system; Z82.5 Family history of asthma and other chronic lower respiratory diseases; Z83.3 Family history of diabetes mellitus; Z85.038 Personal history of other malignant neoplasm of large intestine; Z90.49 Acquired absence of other specified parts of digestive tract; Z90.710 Acquired absence of both cervix and uterus; Z88.2 Allergy status to sulfonamides; Z88.1 Allergy status to other antibiotic agents; Z68.32 Body mass index [BMI] 32.0-32.9, adult; Y93.89 Activity, other specified; Y92.89 Other specified places as the place of occurrence of the external cause; Y99.8 Other external cause status
CPT/HCPCS: 36415; 74176; 76705; 80048; 80053; 80061; 81001; 82150; 82962; 83036; 83690; 83880; 84484; 85025; 85048; 86704; 86706; 86708; 86803; 87045; 87086; 87340; 87493; 87899; 93005; 94640; 96361; 96374; 96375; A6257; G0378; J0696; J1815; J2405; J3490

== ENCOUNTER 2018-07-27 17:39 | Inpatient (IN) | payer MEDICAID | END 2018-08-03 14:50 | disposition home or self-care (01) | LOC: TELE-EAST 07-28 17:51 → ER 17:39 → TELE 07-28 11:18 → TELE-EAST 07-28 18:00 | DX: J44.1 Chronic obstructive pulmonary disease with (acute) exacerbation (principal); J45.901 Unspecified asthma with (acute) exacerbation; R65.10 Systemic inflammatory response syndrome (SIRS) of non-infectious origin without acute organ dysfunction; E03.9 Hypothyroidism, unspecified; E11.9 Type 2 diabetes mellitus without complications; I10 Essential (primary) hypertension; E78.5 Hyperlipidemia, unspecified; E66.9 Obesity, unspecified; E87.6 Hypokalemia; M19.90 Unspecified osteoarthritis, unspecified site; F41.9 Anxiety disorder, unspecified; R06.03 Acute respiratory distress ==

== ENCOUNTER 2018-11-30 19:14 | Emergency (ER) | payer MEDICAID ==
[~2018-11-30] VITALS: Ht 152.4 cm; Wt 78.5 kg
[~2018-11-30 19:14] MED LIST changes: -ALB5IS INH; -AMLO5TAB13 PO; -GLIP-115 PO; +LOSA-69 PO; +METF-370 PO
[2018-11-30 20:02] LABS: Basophils # (auto) 0.1 uL; Eosinophils # (auto) 0.4 uL; Hematocrit 39.7 % (36.0-46.0); Hemoglobin 13.7 g/dL (12.2-16.2); Lymphocytes # (auto) 3.5 uL; Lymphocytes % (auto) 38.8 % (10.0-50.0); Mean Corpuscular Hemoglobin 31.5 pg (28.0-32.0); Mean Corpuscular Hgb Conc. 34.6 g/dL (32.0-36.0); Mean Corpuscular Volume 91.1 fL (80.0-100.0); Monocytes # (auto) 0.6 uL; Monocytes % (auto) 7.1 % (0.0-12.0); Neutrophils # (auto) 4.5 uL; Neutrophils % (auto) 49.1 % (37.0-80.0); Nucleated Red Blood Cells % 0.1 %; Platelet Count (auto) 244 10^3/uL (140-450); Red Blood Cells 4.36 10^6/uL (4.0-5.20); Red Cell Distribution Width 14.1 % (11.8-14.3); White Blood Cell 9.1 10^3/uL (4.4-10.8)
[2018-11-30 20:17] LABS: Albumin 3.8 g/dL (3.4-5.0); BUN/Creatinine Ratio 16.2; Calcium 9.2 mg/dL (8.5-10.1)
[2018-11-30 20:26] LABS: Bilirubin, Total 0.3 mg/dL (0.2-1.0); Total Protein 7.7 g/dL (6.4-8.2)
[2018-11-30 20:59] LABS: Urine Bacteria NONE SEEN /hpf (None Seen); Urine Blood Negative /uL (Negative); Urine Specific Gravity 1.014 (1.001-1.035); Urine WBC 1 /hpf (0 - 5)
[2018-11-30] MEDS ORDERED: SODIUM CHLORIDE 0.9% 1,000 ML IV ONE (23:30)
[2018-11-30] MEDS ORDERED: KETOROLAC TROMETH 15 mg/ml 1ML VL IV ONE (23:30)
[2018-11-30] MEDS ORDERED: ONDANSETRON HCL 4 MG/2 ML VIAL IV ONE (23:30)
[2018-12-01 00:09] VITALS: BP 124/61
== END 2018-12-01 00:40 | disposition home or self-care (01) ==
LOC: ER 19:18
DX: A08.4 Viral intestinal infection, unspecified (principal); J45.909 Unspecified asthma, uncomplicated; E78.5 Hyperlipidemia, unspecified; I10 Essential (primary) hypertension; Z90.49 Acquired absence of other specified parts of digestive tract; Z90.710 Acquired absence of both cervix and uterus; Z90.89 Acquired absence of other organs; Z88.1 Allergy status to other antibiotic agents; Z88.2 Allergy status to sulfonamides
CPT/HCPCS: 36415; 74176; 80053; 81001; 82150; 83690; 85025; 96374; 96375; 99284; J1885; J2405; J7030

== ENCOUNTER 2019-02-27 17:14 | Inpatient (IN) | payer MEDICAID ==
[~2019-02-27] VITALS: Ht 152.4 cm; Wt 86.5 kg
[2019-02-27 18:03] LABS: Urine Bacteria NONE SEEN /hpf (None Seen); Urine Blood Negative /uL (Negative); Urine Mucus FEW (None Seen); Urine Specific Gravity 1.017 (1.001-1.035); Urine WBC 1 /hpf (0 - 5)
[2019-02-27 18:09] LABS: Basophils # (auto) 0.1 uL; Basophils % (auto) 1.2 % (0.0-2.0); Eosinophils # (auto) 0.2 uL; Eosinophils % (auto) 3.1 % (0.0-7.0); Hematocrit 42.1 % (36.0-46.0); Hemoglobin 13.9 g/dL (12.2-16.2); Lymphocytes # (auto) 2.9 uL; Lymphocytes % (auto) 41.9 % (10.0-50.0); Mean Corpuscular Hemoglobin 29.8 pg (28.0-32.0); Mean Corpuscular Hgb Conc. 32.9 g/dL (32.0-36.0); Mean Corpuscular Volume 90.5 fL (80.0-100.0); Monocytes # (auto) 0.7 uL; Monocytes % (auto) 10.2 % (0.0-12.0); Neutrophils % (auto) 43.6 % (37.0-80.0); Nucleated Red Blood Cells % 0.1 %; Platelet Count (auto) 255 10^3/uL (140-450); Red Blood Cells 4.65 10^6/uL (4.0-5.20); Red Cell Distribution Width 14.3 % (11.8-14.3)
[2019-02-27 18:11] LABS: Albumin 3.7 g/dL (3.4-5.0); BUN/Creatinine Ratio 16.8; Calcium 9.1 mg/dL (8.5-10.1); Potassium 3.6 mmol/L (3.5-5.1)
[2019-02-27 18:18] LABS: Bilirubin, Total 0.4 mg/dL (0.2-1.0)
[2019-02-28] MEDS ORDERED: VANCOMYCIN PER PHARMACY 1,000 MG IV SCH (01:45)
[2019-02-28] MEDS ORDERED: SODIUM CHLORIDE 0.9% 2,350 ML IV ONE (01:45)
[2019-02-28] MEDS ORDERED: IOHEXOL 300 MG/ML 100ML BOTTLE IJ ONE (01:50)
[2019-02-28] MEDS ORDERED: VANCOMYCIN 1GM/250ML 250 ML IV ONE (02:00)
[2019-02-28] MEDS ORDERED: PIPERACILLIN-TAZOB 3.375GM 100 ML IV SCH (03:00)
[2019-02-28 03:31] LABS: INR 0.99 (0.9-1.15); Partial Thromboplastin Time 26.5 sec (23.64-32.05)
[2019-02-28] MEDS ORDERED: diphenhdrAMINE HCL 50 MG/1 ML VL IV ONE (04:15)
[2019-02-28] MEDS ORDERED: ONDANSETRON HCL 4 MG/2 ML VIAL IV ONE (05:00)
[2019-02-28] MEDS ORDERED: MORPHINE SULFATE 4 MG/ML SYR/VIAL IV ONE (05:00)
[2019-02-28] MEDS ORDERED: ONDANSETRON HCL 4 MG/2 ML VIAL IV PRN (06:00)
[2019-02-28] MEDS ORDERED: ACETAMINOPHEN 325 MG TAB PO PRN (06:00)
[2019-02-28] MEDS: SODIUM CHLORIDE 0.9% 1,000 ML IV SCH ×2 (06:17→18:01)
[2019-02-28] MEDS ORDERED: metroNIDAZOLE 500MG/100ML 100 ML IV ONE (06:30)
[2019-02-28] MEDS: LEVOTHYROXINE SODIUM 112 MCG TAB PO SCH (06:44)
[2019-02-28 08:00] VITALS: BP 107/63
--- NOTE | 2019-02-28 08:00 | NUR ---
[facility] admit from ER JASON OLSEN admitted to [facility] after SBAR received. Patient oriented to Belinda Juarez, primary RN, unit, room, bed, and unit policies regarding patient care and visiting hours. Patient weighed by bedscale and encouraged to call if they need something. All questions and concerns addressed, patient verbalized understanding.
[2019-02-28] MEDS ORDERED: cefTRIAXone 1GM/50ML D5W 50 ML IV SCH (09:00)
[2019-02-28] MEDS: HYDROcodone-ACET 5/325MG TAB PO PRN ×3 (09:34→22:00)
[2019-02-28 09:42] VITALS: BP 107/63
[2019-02-28] MEDS: LOSARTAN POTASSIUM 50 MG TAB PO SCH (10:00)
[2019-02-28] MEDS ORDERED: FAMOTIDINE 20 MG TAB PO SCH (10:00)
[2019-02-28] MEDS ORDERED: TRAV0.00 EACHEYE (10:13)
[2019-02-28] MEDS: PANTOPRAZOLE 40 MG TAB PO SCH (11:59)
[2019-02-28 13:00] VITALS: BP 112/82
[2019-02-28 13:30] LABS: Basophils # (auto) 0.1 uL; Basophils % (auto) 1.4 % (0.0-2.0); Eosinophils # (auto) 0.2 uL; Hematocrit 38.5 % (36.0-46.0); Hemoglobin 12.8 g/dL (12.2-16.2); Lymphocytes # (auto) 2.6 uL; Lymphocytes % (auto) 45.9 % (10.0-50.0); Mean Corpuscular Hemoglobin 29.9 pg (28.0-32.0); Mean Corpuscular Hgb Conc. 33.2 g/dL (32.0-36.0); Mean Corpuscular Volume 89.9 fL (80.0-100.0); Monocytes # (auto) 0.6 uL; Monocytes % (auto) 10.1 % (0.0-12.0); Neutrophils # (auto) 2.2 uL; Neutrophils % (auto) 38.6 % (37.0-80.0); Nucleated Red Blood Cells % 0.2 %; Platelet Count (auto) 202 10^3/uL (140-450); Red Blood Cells 4.28 10^6/uL (4.0-5.20); Red Cell Distribution Width 14.1 % (11.8-14.3); White Blood Cell 5.8 10^3/uL (4.4-10.8)
[2019-02-28 13:59] LABS: BUN/Creatinine Ratio 13.7; Calcium 7.6 mg/dL (8.5-10.1); Potassium 3.6 mmol/L (3.5-5.1)
[2019-02-28 14:03] LABS: Bilirubin, Total 0.6 mg/dL (0.2-1.0); Total Protein 6.5 g/dL (6.4-8.2)
[2019-02-28] MEDS: metroNIDAZOLE 500MG/100ML 100 ML IV SCH ×2 (14:34→21:41)
[2019-02-28 17:00] VITALS: BP 107/71
[2019-02-28 20:00] VITALS: BP 107/63
[2019-02-28] MEDS: ATORVASTATIN 20 MG TAB PO SCH (21:42)
[2019-02-28 22:00] VITALS: BP 113/63
[2019-03-01] MEDS ORDERED: VANCOMYCIN 1GM/250ML 250 ML IV SCH (03:00)
[2019-03-01 05:47] VITALS: BP 106/59
[2019-03-01 06:45] LABS: BUN/Creatinine Ratio 10.4; Potassium 3.7 mmol/L (3.5-5.1)
[2019-03-01] MEDS: metroNIDAZOLE 500MG/100ML 100 ML IV SCH ×3 (06:47→22:00)
[2019-03-01] MEDS: SODIUM CHLORIDE 0.9% 1,000 ML IV SCH (06:48)
[2019-03-01] MEDS: LEVOTHYROXINE SODIUM 112 MCG TAB PO SCH (06:48)
[2019-03-01] MEDS: HYDROcodone-ACET 5/325MG TAB PO PRN (06:52)
--- NOTE | 2019-03-01 08:00 | NUR ---
Opening Shift Note Assumed care of patient, awake and alert. No S/S of distress/SOB or pain. No complaints of loose stools. Instructed on POC and to call for assist PRN, will continue to monitor for changes Q1hr and PRN.
[2019-03-01 09:00] VITALS: BP 118/63
[2019-03-01] MEDS ORDERED: DEXTROSE (50%) 50ML SYRG IV PRN (09:45)
[2019-03-01] MEDS: PANTOPRAZOLE 40 MG TAB PO SCH (10:03)
[2019-03-01] MEDS: cefTRIAXone 1GM/50ML D5W 50 ML IV SCH (10:03)
[2019-03-01] MEDS: SOD CHL 0.9%/ KCL 20MEQ 1,000 ML IV SCH ×2 (10:04→22:50)
[2019-03-01] MEDS: LOSARTAN POTASSIUM 50 MG TAB PO SCH (10:04)
[2019-03-01] MEDS: ACCU-CHEK COMFORT CURVE STRIP VI SCH ×3 (12:33→22:10)
[2019-03-01] MEDS: InsuLIN REG 1unit/0.01ml Soln (100units/ml) SC SCH ×2 (12:34→17:43)
[2019-03-01 13:00] VITALS: BP 99/72
[2019-03-01 17:00] VITALS: BP 100/61
--- NOTE | 2019-03-01 19:30 | NUR ---
Assumed care of patient. Alert and oriented x4. States "Im feeling better< the doctor says I might be able to go home tomorrow. . No distress/SOB noted. IV to R hand patent and infusing per orders. Call light within reach
[2019-03-01 20:00] VITALS: BP 118/63
[2019-03-01] MEDS: ATORVASTATIN 20 MG TAB PO SCH (22:00)
[2019-03-01] MEDS ORDERED: InsuLIN REG 1unit/0.01ml Soln (100units/ml) SC SCH (22:00)
--- NOTE | 2019-03-01 22:00 | NUR ---
Paged hospitalist regarding patient request for sleep aid medication. Orders received and carried out.
[2019-03-01] MEDS ORDERED: TEMAZEPAM 15 MG CAP PO ONE (22:30)
[2019-03-02 04:38] VITALS: BP 126/60
[2019-03-02] MEDS: metroNIDAZOLE 500MG/100ML 100 ML IV SCH (06:00)
[2019-03-02] MEDS: LEVOTHYROXINE SODIUM 112 MCG TAB PO SCH (06:43)
[2019-03-02] MEDS: ACCU-CHEK COMFORT CURVE STRIP VI SCH ×2 (06:46→12:12)
[2019-03-02] MEDS: InsuLIN REG 1unit/0.01ml Soln (100units/ml) SC SCH ×2 (06:46→12:13)
--- NOTE | 2019-03-02 06:52 | NUR ---
Refused flagyl this am. States Dr. Tubbs said she was going to d/c it yesterday, and I feel like it gave me cdiff last year and I dont want that again." Patient is possible discharge today. No distress noted
--- NOTE | 2019-03-02 08:00 | NUR ---
Opening Shift Note Assumed care of patient, awake and alert. No S/S of distress/SOB or pain. Instructed on POC and to call for assist PRN, will continue to monitor for changes Q1hr and PRN.
[2019-03-02 08:21] VITALS: BP 127/69
[2019-03-02] MEDS: cefTRIAXone 1GM/50ML D5W 50 ML IV SCH (08:59)
[2019-03-02] MEDS: PANTOPRAZOLE 40 MG TAB PO SCH (09:42)
[2019-03-02] MEDS: LOSARTAN POTASSIUM 50 MG TAB PO SCH (09:42)
[2019-03-02 12:49] VITALS: BP 144/82
[2019-03-02 13:00] VITALS: BP 144/82
--- NOTE | 2019-03-02 13:15 | NUR ---
Discharge instructions given as ordered. Encourage to follow up with PMD Dr. Lan Gould in 1 week as instructed. All questions and concerns addressed. Patient verbalized understanding. Medication reconciliation form completed and copy given to patient. Home medications held in Pharmacy returned to patient. IV removed with catheter intact, pressure dressing applied. Patient ambulated with all personal belongings, accompanied by staff and family member. No distress noted at time of departure.
== END 2019-03-02 13:15 | disposition home or self-care (01) | DRG 249 ==
LOC: ER 17:14 → OVERFLOW 17:15 → EAST 02-28 08:17
PROVIDERS: ADMIT Nurse Practitioner; ATTEND Internal Medicine
DX: K52.9 Noninfective gastroenteritis and colitis, unspecified (principal); E66.01 Morbid (severe) obesity due to excess calories; E03.9 Hypothyroidism, unspecified; E11.9 Type 2 diabetes mellitus without complications; E78.5 Hyperlipidemia, unspecified; I10 Essential (primary) hypertension; J45.909 Unspecified asthma, uncomplicated; K21.9 Gastro-esophageal reflux disease without esophagitis; N39.0 Urinary tract infection, site not specified; Z88.1 Allergy status to other antibiotic agents; Z90.710 Acquired absence of both cervix and uterus; F41.9 Anxiety disorder, unspecified; Z80.0 Family history of malignant neoplasm of digestive organs; Z82.49 Family history of ischemic heart disease and other diseases of the circulatory system; Z82.5 Family history of asthma and other chronic lower respiratory diseases; Z83.3 Family history of diabetes mellitus; Z68.37 Body mass index [BMI] 37.0-37.9, adult
CPT/HCPCS: 36415; 36600; 74176; 74177; 80048; 80053; 81001; 82550; 82805; 82962; 83605; 83690; 83880; 84484; 85025; 85379; 85384; 85610; 85730; 87040; 87045; 87086; 87427; 87493; 93005; 96361; 96365; 96367; 96375; G0378; J0696; J1815; J2405; J2543; J3490

== ENCOUNTER 2019-06-05 16:09 | Emergency (ER) | payer MEDICAID ==
[~2019-06-05] VITALS: Ht 152.4 cm; Wt 77.1 kg
[~2019-06-05 16:09] MED LIST changes: +TRAV0.00 EACHEYE
[2019-06-05 19:18] VITALS: BP 181/104
[2019-06-05] MEDS ORDERED: LORazepam 2MG/ML-1ML VIAL IM ONE (19:30)
== END 2019-06-05 19:53 | disposition home or self-care (01) ==
LOC: ER 16:09
DX: F41.9 Anxiety disorder, unspecified (principal); J45.909 Unspecified asthma, uncomplicated; E11.9 Type 2 diabetes mellitus without complications; K21.9 Gastro-esophageal reflux disease without esophagitis; E78.5 Hyperlipidemia, unspecified; I10 Essential (primary) hypertension; E07.9 Disorder of thyroid, unspecified; Z88.2 Allergy status to sulfonamides; Z88.1 Allergy status to other antibiotic agents
CPT/HCPCS: 82962; 96372; 99283; J2060

== ENCOUNTER 2019-08-30 10:03 | Emergency (ER) | payer BC, MEDICAID ==
[~2019-08-30] VITALS: Ht 152.4 cm; Wt 78.5 kg
[2019-08-30 12:01] LABS: INR 1.01 (0.9-1.15); Partial Thromboplastin Time 26.9 sec (23.64-32.05)
[2019-08-30 12:13] LABS: Albumin 3.9 g/dL (3.4-5.0); Anion Gap 9 (5-15); Blood Urea Nitrogen 11 mg/dL (7-18); Calcium 9.1 mg/dL (8.5-10.1); Carbon Dioxide 25 mmol/L (21-32); Chloride 104 mmol/L (98-107); Glucose 162 mg/dL (74-106); Potassium 3.8 mmol/L (3.5-5.1); Sodium 138 mmol/L (136-145)
[2019-08-30 12:18] LABS: Alanine Aminotransferase 51 U/L (13-56); Alkaline Phosphatase 56 U/L (45-117); Aspartate Aminotransferase 48 U/L (15-37); BUN/Creatinine Ratio 15.5; Bilirubin, Total 0.7 mg/dL (0.2-1.0); GFR African American 106 mL/min; GFR Non-African American 88 mL/min; Total Protein 8.1 g/dL (6.4-8.2)
[2019-08-30 13:30] VITALS: BP 134/72
== END 2019-08-30 13:37 | disposition home or self-care (01) ==
LOC: ER 10:03
DX: J02.0 Streptococcal pharyngitis (principal); J44.1 Chronic obstructive pulmonary disease with (acute) exacerbation; E11.9 Type 2 diabetes mellitus without complications; K21.9 Gastro-esophageal reflux disease without esophagitis; E78.5 Hyperlipidemia, unspecified; I10 Essential (primary) hypertension; E07.9 Disorder of thyroid, unspecified; Z20.828 Contact with and (suspected) exposure to other viral communicable diseases
CPT/HCPCS: 36415; 80053; 82728; 84484; 85379; 85610; 85730; 87635; 87804; 87880; 99001

== ENCOUNTER 2021-10-11 12:05 | Emergency (ER) | payer BC, MEDICAID ==
[~2021-10-11] VITALS: Ht 154.9 cm; Wt 78.5 kg
[~2021-10-11 12:05] MED LIST changes: +LEVO112T2 PO; -LEVO112T35 PO
[2021-10-11 14:11] LABS: Urine Bacteria NONE SEEN /hpf (None Seen); Urine Blood Negative /uL (Negative); Urine WBC 27 /hpf (0 - 5)
[2021-10-11 16:00] VITALS: BP 136/72
[2021-10-11 16:37] LABS: Basophils # (auto) 0.1 10 ^3/uL (0-0.2); Basophils % (auto) 1.3 % (0.0-2.0); Eosinophils # (auto) 0.3 10 ^3/uL (0-0.8); Eosinophils % (auto) 3.7 % (0.0-7.0); Hematocrit 39.2 % (36.0-46.0); Hemoglobin 13.2 g/dL (12.2-16.2); Lymphocytes # (auto) 3.9 10 ^3/uL (0.4-5.4); Lymphocytes % (auto) 44.6 % (10.0-50.0); Mean Corpuscular Hemoglobin 29.5 pg (28.0-32.0); Mean Corpuscular Hgb Conc. 33.8 g/dL (32.0-36.0); Mean Corpuscular Volume 87.5 fL (80.0-100.0); Monocytes # (auto) 0.7 10 ^3/uL (0-1.3); Neutrophils # (auto) 3.7 10 ^3/uL (1.6-8.6); Neutrophils % (auto) 42.4 % (37.0-80.0); Nucleated Red Blood Cells % 0.1 %; Red Blood Cells 4.48 10^6/uL (4.0-5.20); Red Cell Distribution Width 14.6 % (11.8-14.3); White Blood Cell 8.7 10^3/uL (4.4-10.8)
[2021-10-11 16:52] LABS: Albumin 3.8 g/dL (3.4-5.0); Calcium 9.5 mg/dL (8.5-10.1); Potassium 4.3 mmol/L (3.5-5.1)
[2021-10-11 16:55] LABS: BUN/Creatinine Ratio 21.9; Bilirubin, Total 0.5 mg/dL (0.2-1.0); Total Protein 8.1 g/dL (6.4-8.2)
== END 2021-10-11 17:48 | disposition home or self-care (01) ==
LOC: ER 12:05
DX: N39.0 Urinary tract infection, site not specified (principal); I10 Essential (primary) hypertension; E11.9 Type 2 diabetes mellitus without complications; E78.5 Hyperlipidemia, unspecified; E03.9 Hypothyroidism, unspecified; J45.909 Unspecified asthma, uncomplicated; Z90.49 Acquired absence of other specified parts of digestive tract; Z90.710 Acquired absence of both cervix and uterus; Z90.89 Acquired absence of other organs; Z79.899 Other long term (current) drug therapy; Z88.1 Allergy status to other antibiotic agents; Z88.2 Allergy status to sulfonamides
CPT/HCPCS: 36415; 74176; 80053; 81001; 83690; 85025; 87086

== ENCOUNTER 2021-11-28 06:49 | Emergency (ER) | payer BC, MEDICAID ==
[2021-11-28 07:28] VITALS: BP 144/63
[2021-11-28 07:50] LABS: Basophils # (auto) 0.1 10 ^3/uL (0-0.2); Basophils % (auto) 1.2 % (0.0-2.0); Eosinophils # (auto) 0.4 10 ^3/uL (0-0.8); Eosinophils % (auto) 4.1 % (0.0-7.0); Hemoglobin 13.1 g/dL (12.2-16.2); Lymphocytes # (auto) 3.6 10 ^3/uL (0.4-5.4); Lymphocytes % (auto) 37.6 % (10.0-50.0); Mean Corpuscular Hemoglobin 28.4 pg (28.0-32.0); Mean Corpuscular Hgb Conc. 32.7 g/dL (32.0-36.0); Monocytes # (auto) 0.7 10 ^3/uL (0-1.3); Monocytes % (auto) 7.3 % (0.0-12.0); Neutrophils # (auto) 4.8 10 ^3/uL (1.6-8.6); Neutrophils % (auto) 49.8 % (37.0-80.0); Nucleated Red Blood Cells % 0.1 %; Red Blood Cells 4.59 10^6/uL (4.0-5.20); Red Cell Distribution Width 14.7 % (11.8-14.3); White Blood Cell 9.5 10^3/uL (4.4-10.8)
[2021-11-28 07:53] LABS: Urine Bacteria NONE SEEN /hpf (None Seen); Urine Blood Negative /uL (Negative); Urine Specific Gravity 1.016 (1.001-1.035); Urine WBC 9 /hpf (0 - 5)
[2021-11-28 08:07] LABS: BUN/Creatinine Ratio 19.7; Calcium 9.1 mg/dL (8.5-10.1); Potassium 3.9 mmol/L (3.5-5.1)
[2021-11-28 08:10] LABS: Bilirubin, Total 0.6 mg/dL (0.2-1.0)
[2021-11-28] MEDS ORDERED: NITR-87 PO (09:41)
[2021-11-28] MEDS ORDERED: cefTRIAXone W LIDOCAINE 1 GM IM IM ONE (09:45)
[2021-11-28] MEDS ORDERED: cefTRIAXone SOD 1,000 MG VL ONE (10:00)
== END 2021-11-28 10:25 | disposition home or self-care (01) ==
LOC: ER 06:49
DX: N39.0 Urinary tract infection, site not specified (principal); J45.909 Unspecified asthma, uncomplicated; E11.9 Type 2 diabetes mellitus without complications; K21.9 Gastro-esophageal reflux disease without esophagitis; E78.5 Hyperlipidemia, unspecified; I10 Essential (primary) hypertension; Z90.49 Acquired absence of other specified parts of digestive tract; Z90.710 Acquired absence of both cervix and uterus; Z88.1 Allergy status to other antibiotic agents; Z88.2 Allergy status to sulfonamides
CPT/HCPCS: 36415; 80053; 81001; 85025; 99283; J0696

== ENCOUNTER 2022-01-10 10:09 | Emergency (ER) | payer BC, MEDICAID ==
[~2022-01-10] VITALS: Ht 152.4 cm; Wt 80.4 kg
[~2022-01-10 10:09] MED LIST changes: +NITR-87 PO
[2022-01-10 13:04] LABS: Urine Bacteria FEW /hpf (None Seen); Urine Blood Negative /uL (Negative); Urine Mucus FEW (None Seen); Urine Specific Gravity 1.021 (1.001-1.035); Urine WBC 5 /hpf (0 - 5)
[2022-01-10] MEDS ORDERED: cefTRIAXone SOD 1,000 MG VL IM ONE (14:30)
[2022-01-10] MEDS ORDERED: NITR1CAP23 GT (14:41)
[2022-01-10 17:00] VITALS: BP 156/80
== END 2022-01-10 18:20 | disposition home or self-care (01) ==
LOC: ER 10:09
DX: N39.0 Urinary tract infection, site not specified (principal); N23 Unspecified renal colic; J45.909 Unspecified asthma, uncomplicated; K21.9 Gastro-esophageal reflux disease without esophagitis; E78.5 Hyperlipidemia, unspecified; I10 Essential (primary) hypertension; Z90.49 Acquired absence of other specified parts of digestive tract; Z90.710 Acquired absence of both cervix and uterus; Z88.2 Allergy status to sulfonamides; Z88.1 Allergy status to other antibiotic agents
CPT/HCPCS: 81001; 96372; 99283; J0696

== ENCOUNTER 2022-05-02 09:57 | Emergency (ER) | payer BC, MEDICAID ==
[~2022-05-02] VITALS: Ht 152.4 cm; Wt 78.5 kg
[~2022-05-02 09:57] MED LIST changes: +NITR1CAP23 GT
[2022-05-02 11:44] VITALS: BP 134/64
[2022-05-02] MEDS ORDERED: AZITTAB PO (12:17)
[2022-05-02] MEDS ORDERED: AMOX500C2 PO (12:26)
[2022-05-02] MEDS ORDERED: PRED20TA2 PO (13:15)
[2022-05-02] MEDS ORDERED: PROM1SOL4 PO (13:15)
[2022-05-02] MEDS ORDERED: MICO2CRE60 EX (13:20)
== END 2022-05-02 12:33 | disposition home or self-care (01) ==
LOC: ER 09:57
DX: N39.0 Urinary tract infection, site not specified (principal); H66.91 Otitis media, unspecified, right ear; J45.909 Unspecified asthma, uncomplicated; E11.9 Type 2 diabetes mellitus without complications; K21.9 Gastro-esophageal reflux disease without esophagitis; E78.5 Hyperlipidemia, unspecified; I10 Essential (primary) hypertension; Z90.49 Acquired absence of other specified parts of digestive tract; Z20.822 Contact with and (suspected) exposure to COVID-19; Z90.710 Acquired absence of both cervix and uterus; Z88.2 Allergy status to sulfonamides; Z88.1 Allergy status to other antibiotic agents
CPT/HCPCS: 36415; 87426; 87804

== ENCOUNTER 2022-07-18 12:14 | Emergency (ER) | payer BC, MEDICAID ==
[~2022-07-18] VITALS: Ht 152.4 cm; Wt 80.0 kg
[~2022-07-18 12:14] MED LIST changes: +AMOX500C2 PO; +MICO2CRE60 EX; +PRED20TA2 PO; +PROM1SOL4 PO
[2022-07-18 13:15] LABS: Basophils # (auto) 0.2 10 ^3/uL (0-0.2); Eosinophils # (auto) 0.3 10 ^3/uL (0-0.8); Eosinophils % (auto) 3.9 % (0.0-7.0); Hematocrit 38.6 % (36.0-46.0); Hemoglobin 12.6 g/dL (12.2-16.2); Lymphocytes # (auto) 3.5 10 ^3/uL (0.4-5.4); Lymphocytes % (auto) 43.4 % (10.0-50.0); Mean Corpuscular Hemoglobin 28.4 pg (28.0-32.0); Mean Corpuscular Hgb Conc. 32.7 g/dL (32.0-36.0); Mean Corpuscular Volume 86.8 fL (80.0-100.0); Monocytes # (auto) 0.5 10 ^3/uL (0-1.3); Monocytes % (auto) 6.3 % (0.0-12.0); Neutrophils # (auto) 3.6 10 ^3/uL (1.6-8.6); Neutrophils % (auto) 44.4 % (37.0-80.0); Nucleated Red Blood Cells % 0.1 %; Red Blood Cells 4.45 10^6/uL (4.0-5.20); Red Cell Distribution Width 15.1 % (11.8-14.3)
[2022-07-18 13:30] LABS: Albumin 3.7 g/dL (3.4-5.0); BUN/Creatinine Ratio 15.5; Magnesium 1.6 mg/dL (1.6-2.6); Potassium 4.1 mmol/L (3.5-5.1)
[2022-07-18 13:32] LABS: Bilirubin, Total 0.5 mg/dL (0.2-1.0); Total Protein 7.9 g/dL (6.4-8.2)
[2022-07-18 15:05] LABS: Urine Bacteria NONE SEEN /hpf (None Seen); Urine Blood Negative /uL (Negative); Urine WBC 1 /hpf (0 - 5)
[2022-07-18 17:34] VITALS: BP 119/75
== END 2022-07-18 17:33 | disposition home or self-care (01) ==
LOC: ER 12:14
DX: R10.30 Lower abdominal pain, unspecified (principal); E11.9 Type 2 diabetes mellitus without complications; J45.909 Unspecified asthma, uncomplicated; E78.5 Hyperlipidemia, unspecified; I10 Essential (primary) hypertension; F41.9 Anxiety disorder, unspecified; K21.9 Gastro-esophageal reflux disease without esophagitis; Z87.440 Personal history of urinary (tract) infections; Z90.89 Acquired absence of other organs; Z90.49 Acquired absence of other specified parts of digestive tract; Z90.710 Acquired absence of both cervix and uterus; Z88.1 Allergy status to other antibiotic agents; Z88.2 Allergy status to sulfonamides
CPT/HCPCS: 36415; 74176; 80053; 81001; 83735; 85025

== ENCOUNTER 2022-08-09 18:49 | Emergency (ER) | payer BC, MEDICAID ==
[~2022-08-09] VITALS: Ht 152.4 cm; Wt 81.1 kg
[2022-08-09 18:58] VITALS: BP 129/71
[2022-08-09] MEDS ORDERED: KETOROLAC TROMETH 60MG/2ML VIAL IM ONE (20:30)
== END 2022-08-10 00:03 | disposition home or self-care (01) ==
LOC: ER 18:49
DX: S83.91XA Sprain of unspecified site of right knee, initial encounter (principal); M13.851 Other specified arthritis, right hip; F41.9 Anxiety disorder, unspecified; J45.909 Unspecified asthma, uncomplicated; E11.9 Type 2 diabetes mellitus without complications; K21.9 Gastro-esophageal reflux disease without esophagitis; E78.5 Hyperlipidemia, unspecified; I10 Essential (primary) hypertension; Z79.899 Other long term (current) drug therapy; Z79.84 Long term (current) use of oral hypoglycemic drugs; Z90.49 Acquired absence of other specified parts of digestive tract; Z90.710 Acquired absence of both cervix and uterus; Z90.89 Acquired absence of other organs; X58.XXXA Exposure to other specified factors, initial encounter; Y93.89 Activity, other specified; Y92.89 Other specified places as the place of occurrence of the external cause; Y99.8 Other external cause status
CPT/HCPCS: 29505; 73502; 73562; 96372; 99284; J1885

== ENCOUNTER 2023-04-13 22:49 | Emergency (ER) | payer OTHER, MEDICAID ==
[~2023-04-13] VITALS: Ht 152.4 cm; Wt 77.8 kg
[~2023-04-13 22:49] MED LIST changes: -LOSA-69 PO; +LOSA50TA46 PO
[2023-04-13 23:57] LABS: Rapid Influenza A Negative (Negative); Rapid Influenza B Negative (Negative)
[2023-04-14] LABS: COVID19 ANTIGEN SOFIA FIA POSITIVE (NEGATIVE)
[2023-04-14] MEDS ORDERED: ALBUAER3 IN (00:56)
[2023-04-14] MEDS ORDERED: AZITTAB PO (00:56)
[2023-04-14] MEDS ORDERED: PRED20TA2 PO (00:56)
[2023-04-14] MEDS ORDERED: BENZ200C64 PO (00:56)
[2023-04-14] MEDS ORDERED: BENZLOZ2 MT (00:56)
[2023-04-14] MEDS ORDERED: PROMETHAZINE W/CODEINE 5 ML ORAL SYRUP PO ONE (01:00)
[2023-04-14] MEDS ORDERED: DexAMETHasone SOD PHOS 10MG/1ML VIAL INJ IM ONE (01:00)
[2023-04-14] MEDS ORDERED: cefTRIAXone SOD 1,000 MG VL IM ONE (01:00)
[2023-04-14 01:07] VITALS: BP 152/71; PULSE 104; RESP 19; TEMP 98.4; O2SAT 97
[2023-04-14] MEDS ORDERED: ALBUTEROL SULF HFA 90MCG INH 200DOSE IN SCH (06:00)
== END 2023-04-14 01:43 | disposition home or self-care (01) ==
LOC: ER 22:49
DX: U07.1 COVID-19 (principal); J20.9 Acute bronchitis, unspecified; J03.90 Acute tonsillitis, unspecified; J45.909 Unspecified asthma, uncomplicated; E11.9 Type 2 diabetes mellitus without complications; K21.9 Gastro-esophageal reflux disease without esophagitis; E78.5 Hyperlipidemia, unspecified; I10 Essential (primary) hypertension; Z90.49 Acquired absence of other specified parts of digestive tract; Z90.710 Acquired absence of both cervix and uterus
CPT/HCPCS: 36415; 71045; 87426; 87804; 96372; 99284; J0696; J1100

== ENCOUNTER 2023-04-14 15:50 | Emergency (ER) | payer BC, MEDICAID ==
[~2023-04-14] VITALS: Ht 152.4 cm; Wt 77.4 kg
[~2023-04-14 15:50] MED LIST changes: +ALBUAER3 IN; +AZITTAB PO; +BENZ200C64 PO; +BENZLOZ2 MT
[2023-04-14] MEDS ORDERED: DexAMETHasone SOD PHOS 10MG/1ML VIAL INJ IM ONE (17:45)
[2023-04-14] MEDS ORDERED: IPRATROPIUM BROM 0.5 MG/2.5ML INH SOL NEB ONE (17:45)
[2023-04-14] MEDS ORDERED: ALBUTEROL MEDNEB 2.5 mg/3ml NEB NEB ONE (17:45)
[2023-04-14 18:36] LABS: Basophils # (auto) 0 10 ^3/uL (0-0.2); Eosinophils # (auto) 0 10 ^3/uL (0-0.8); Lymphocytes # (auto) 1.8 10 ^3/uL (0.4-5.4); Monocytes # (auto) 0.3 10 ^3/uL (0-1.3); Neutrophils # (auto) 5.2 10 ^3/uL (1.6-8.6); Neutrophils % (auto) 71.1 % (37.0-80.0)
[2023-04-14 18:39] LABS: Basophils % (auto) 0.3 % (0.0-2.0); Hemoglobin 12.6 g/dL (12.2-16.2); Mean Corpuscular Hgb Conc. 32.3 g/dL (32.0-36.0); Mean Corpuscular Volume 83.5 fL (80.0-100.0); Monocytes % (auto) 4.6 % (0.0-12.0); Red Blood Cells 4.67 10^6/uL (4.0-5.20); Red Cell Distribution Width 15.6 % (11.8-14.3); White Blood Cell 7.4 10^3/uL (4.4-10.8)
[2023-04-14 18:55] LABS: Alanine Aminotransferase 46 U/L (7-40); Alkaline Phosphatase 62 U/L (46-116); Anion Gap 17 (5-15); Aspartate Aminotransferase 23 U/L (13-40); BUN/Creatinine Ratio 19.6 (10.0-20.0); Bilirubin, Total 0.5 mg/dL (0.2-1.0); Blood Urea Nitrogen 18 mg/dL (9-23); Carbon Dioxide 17 mmol/L (20-30); Chloride 103 mmol/L (98-107); Glucose 223 mg/dL (74-106); Potassium 4.1 mmol/L (3.5-5.1); Sodium 137 mmol/L (136-145)
[2023-04-14 22:40] LABS: Base Excess -7.4 mmol/L (-2.0-2.0)
[2023-04-14 23:30] VITALS: PULSE 83; RESP 20; O2SAT 96
[2023-04-15 06:00] VITALS: BP 131/71; PULSE 87; RESP 16; O2SAT 94
[2023-04-15 06:47] LABS: Alanine Aminotransferase 33 U/L (7-40); Albumin 4.5 g/dL (3.2-4.8); Alkaline Phosphatase 54 U/L (46-116); Anion Gap 11 (5-15); Aspartate Aminotransferase 23 U/L (13-40); BUN/Creatinine Ratio 21.1 (10.0-20.0); Blood Urea Nitrogen 16 mg/dL (9-23); Calcium 9.5 mg/dL (8.7-10.4); Carbon Dioxide 21 mmol/L (20-30); Chloride 104 mmol/L (98-107); Glucose 256 mg/dL (74-106); Potassium 4.3 mmol/L (3.5-5.1); Sodium 136 mmol/L (136-145)
[2023-04-15 06:48] LABS: Bilirubin, Total 0.6 mg/dL (0.2-1.0); Total Protein 7.6 g/dL (5.7-8.2)
[2023-04-15] MEDS ORDERED: DexAMETHasone SOD PHOS 10MG/1ML VIAL INJ IV ONE (07:00)
[2023-04-15 08:08] LABS: COVID19 ANTIGEN SOFIA FIA POSITIVE (NEGATIVE)
== END 2023-04-15 08:06 | disposition home or self-care (01) ==
LOC: ER 15:50
DX: U07.1 COVID-19 (principal); J12.82 Pneumonia due to coronavirus disease 2019; R09.02 Hypoxemia; J45.909 Unspecified asthma, uncomplicated; E11.9 Type 2 diabetes mellitus without complications; K21.9 Gastro-esophageal reflux disease without esophagitis; E78.5 Hyperlipidemia, unspecified; I10 Essential (primary) hypertension; Z90.49 Acquired absence of other specified parts of digestive tract; Z90.710 Acquired absence of both cervix and uterus
CPT/HCPCS: 36415; 36600; 71045; 80053; 82728; 82805; 84484; 85025; 85379; 87426; 93005; 94640; 96372; 96374; 99285; J1100; J7644

== ENCOUNTER 2023-04-27 10:54 | Emergency (ER) | payer BC, OTHER ==
[~2023-04-27] VITALS: Ht 152.4 cm; Wt 171.0 kg
[2023-04-27 13:00] LABS: Basophils # (auto) 0.1 10 ^3/uL (0-0.2); Basophils % (auto) 1.3 % (0.0-2.0); Eosinophils # (auto) 0.2 10 ^3/uL (0-0.8); Eosinophils % (auto) 2.8 % (0.0-7.0); Hematocrit 36.9 % (36.0-46.0); Hemoglobin 11.9 g/dL (12.2-16.2); Lymphocytes # (auto) 2.7 10 ^3/uL (0.4-5.4); Lymphocytes % (auto) 41.8 % (10.0-50.0); Mean Corpuscular Hemoglobin 27.1 pg (28.0-32.0); Mean Corpuscular Hgb Conc. 32.3 g/dL (32.0-36.0); Mean Corpuscular Volume 83.8 fL (80.0-100.0); Monocytes # (auto) 0.5 10 ^3/uL (0-1.3); Monocytes % (auto) 7.7 % (0.0-12.0); Neutrophils % (auto) 46.4 % (37.0-80.0); Nucleated Red Blood Cells % 0.1 %; Red Blood Cells 4.41 10^6/uL (4.0-5.20); Red Cell Distribution Width 16.1 % (11.8-14.3); White Blood Cell 6.5 10^3/uL (4.4-10.8)
[2023-04-27 13:11] LABS: Alanine Aminotransferase 30 U/L (7-40); Albumin 4.5 g/dL (3.2-4.8); Alkaline Phosphatase 65 U/L (46-116); Anion Gap 7 (5-15); Aspartate Aminotransferase 21 U/L (13-40); BUN/Creatinine Ratio 9.7 (10.0-20.0); Bilirubin, Total 0.5 mg/dL (0.2-1.0); Blood Urea Nitrogen 7 mg/dL (9-23); Calcium 9.5 mg/dL (8.5-10.1); Carbon Dioxide 26 mmol/L (20-30); Chloride 104 mmol/L (98-107); Glucose 171 mg/dL (74-106); Potassium 4.5 mmol/L (3.5-5.1); Sodium 137 mmol/L (136-145); Total Protein 7.2 g/dL (5.7-8.2)
[2023-04-27 13:17] LABS: Urine Bacteria FEW /hpf (None Seen); Urine Blood Negative /uL (Negative); Urine Clarity Clear (Clear); Urine Color Yellow (Yellow); Urine Protein, UAD Negative (Negative); Urine Specific Gravity 1.015 (1.001-1.035); Urine Urobilinogen Normal (Negative); Urine WBC 4 /hpf (0 - 5)
[2023-04-27 13:54] VITALS: BP 153/98; PULSE 80; RESP 18; TEMP 97.7; O2SAT 98
[2023-04-27] MEDS ORDERED: cefTRIAXone SOD 1,000 MG VL IM ONE (14:30)
[2023-04-27] MEDS ORDERED: KETOROLAC TROMETH 30 MG/ML 1ML VIAL IM ONE (14:30)
[2023-04-27] MEDS ORDERED: KETOROLAC TROMETH 30 MG/ML 1ML VIAL ONE (14:31)
[2023-04-27] MEDS ORDERED: cefTRIAXone SOD 1,000 MG VL ONE (14:31)
[2023-04-27] MEDS ORDERED: PROM1SOL4 PO (14:38)
[2023-04-27] MEDS ORDERED: CEPH500C PO (14:38)
== END 2023-04-27 14:44 | disposition home or self-care (01) ==
LOC: ER 10:54
DX: N39.0 Urinary tract infection, site not specified (principal); J20.9 Acute bronchitis, unspecified; J45.909 Unspecified asthma, uncomplicated; E11.9 Type 2 diabetes mellitus without complications; K21.9 Gastro-esophageal reflux disease without esophagitis; E78.5 Hyperlipidemia, unspecified; I10 Essential (primary) hypertension; Z90.49 Acquired absence of other specified parts of digestive tract; Z90.710 Acquired absence of both cervix and uterus
CPT/HCPCS: 36415; 71046; 80053; 81001; 85025; 96372; 99284; J0696; J1885

== ENCOUNTER 2024-03-05 18:56 | Emergency (ER) | payer BC, MEDICAID ==
[~2024-03-05] VITALS: Ht 152.4 cm; Wt 78.2 kg
[~2024-03-05 18:56] MED LIST changes: +CEPH500C PO; +HYDR50CA PO; +LOSA-534 PO; -LOSA50TA46 PO; -NITR1CAP23 GT; +NITR50CA52 GT; +TRIA0.02 TOP
[2024-03-05] MEDS: SODIUM CHLORIDE 0.9% 1,000 ML IV ONE (19:45)
[2024-03-05 20:13] LABS: Basophils # (auto) 0.1 10 ^3/uL (0-0.2); Eosinophils # (auto) 0.1 10 ^3/uL (0-0.8); Mean Corpuscular Volume 78.7 fL (80.0-100.0); Monocytes # (auto) 0.7 10 ^3/uL (0-1.3); Monocytes % (auto) 7.1 % (0.0-12.0); Nucleated Red Blood Cells % 0.1 %
[2024-03-05 20:15] LABS: Basophils % (auto) 1.3 % (0.0-2.0); Eosinophils % (auto) 1.4 % (0.0-7.0); Hematocrit 35.5 % (36.0-46.0); Hemoglobin 11.7 g/dL (12.2-16.2); Lymphocytes % (auto) 29.9 % (10.0-50.0); Mean Corpuscular Hemoglobin 25.9 pg (28.0-32.0); Mean Corpuscular Hgb Conc. 32.9 g/dL (32.0-36.0); Neutrophils % (auto) 60.3 % (37.0-80.0); Platelet Count (auto) 286 10^3/uL (140-450); Red Blood Cells 4.51 10^6/uL (4.0-5.20); Red Cell Distribution Width 18.7 % (11.8-14.3); White Blood Cell 9.9 10^3/uL (4.4-10.8)
[2024-03-05 20:18] LABS: Chloride 106 mmol/L (98-107); Potassium 4.2 mmol/L (3.5-5.1); Sodium 139 mmol/L (136-145)
[2024-03-05 20:19] LABS: Anion Gap 11 (5-15); Carbon Dioxide 22 mmol/L (20-31)
[2024-03-05 20:24] LABS: BUN/Creatinine Ratio 17.8 (10.0-20.0); Blood Urea Nitrogen 16 mg/dL (9-23); Glucose 187 mg/dL (74-106)
[2024-03-05 20:57] LABS: Urine Bacteria None Seen /hpf (None Seen)
[2024-03-05 21:13] LABS: Urine Blood Negative /uL (Negative); Urine Clarity Clear (Clear); Urine Color Colorless (Yellow); Urine Protein, UAD Negative (Negative); Urine Specific Gravity 1.008 (1.001-1.035); Urine Urobilinogen Normal (Negative); Urine WBC 1 /hpf (0 - 5)
[2024-03-05 21:30] VITALS: BP 143/62; PULSE 80; RESP 13; TEMP 98.2; O2SAT 97
[2024-03-06] MEDS ORDERED: ACET1CAP14 PO (17:06)
== END 2024-03-05 21:36 | disposition home or self-care (01) ==
LOC: ER 18:56
DX: E11.649 Type 2 diabetes mellitus with hypoglycemia without coma (principal); F41.9 Anxiety disorder, unspecified; I10 Essential (primary) hypertension; J45.909 Unspecified asthma, uncomplicated; K21.9 Gastro-esophageal reflux disease without esophagitis; Z79.890 Hormone replacement therapy; Z79.899 Other long term (current) drug therapy; Z87.440 Personal history of urinary (tract) infections; Z88.1 Allergy status to other antibiotic agents; Z88.2 Allergy status to sulfonamides; Z90.49 Acquired absence of other specified parts of digestive tract; Z90.710 Acquired absence of both cervix and uterus
CPT/HCPCS: 36415; 71046; 80048; 81001; 82962; 85025

== ENCOUNTER 2024-03-06 14:28 | Emergency (ER) | payer BC, MEDICAID, OTHER ==
[~2024-03-06] VITALS: Ht 165.1 cm; Wt 86.5 kg
[2024-03-06] MEDS ORDERED: ACET1CAP14 PO (17:06)
[2024-03-06 18:09] VITALS: BP 127/65; TEMP 98
[2024-03-06 18:11] VITALS: PULSE 100; RESP 16; O2SAT 98
== END 2024-03-06 18:56 | disposition home or self-care (01) ==
LOC: EDBD 14:28 → ER 14:28
DX: S92.191A Other fracture of right talus, initial encounter for closed fracture (principal); S40.011A Contusion of right shoulder, initial encounter; S40.021A Contusion of right upper arm, initial encounter; I10 Essential (primary) hypertension; E11.9 Type 2 diabetes mellitus without complications; F41.9 Anxiety disorder, unspecified; J45.909 Unspecified asthma, uncomplicated; K21.9 Gastro-esophageal reflux disease without esophagitis; M19.011 Primary osteoarthritis, right shoulder; M85.80 Other specified disorders of bone density and structure, unspecified site; Z79.899 Other long term (current) drug therapy; Z87.440 Personal history of urinary (tract) infections; Z90.49 Acquired absence of other specified parts of digestive tract; Z90.710 Acquired absence of both cervix and uterus; Z98.890 Other specified postprocedural states; Z88.1 Allergy status to other antibiotic agents; Z88.2 Allergy status to sulfonamides; S80.02XA Contusion of left knee, initial encounter; W18.39XA Other fall on same level, initial encounter; Y93.89 Activity, other specified; Y92.89 Other specified places as the place of occurrence of the external cause; Y99.8 Other external cause status
CPT/HCPCS: 73030; 73080; 73562; 73630; 82962

== ENCOUNTER 2024-07-11 16:32 | Emergency (ER) | payer OTHER, MEDICAID ==
[~2024-07-11] VITALS: Ht 152.4 cm; Wt 75.7 kg
[~2024-07-11 16:32] MED LIST changes: +ACET1CAP14 PO
--- NOTE | 2024-07-11 16:59 | ED.PDOC ---
General HPI Comments HPI: Poor Historian. 68-year-old female presents to emergency department for two months' history of UTI symptoms. Patient had completed the course of one antibiotics she does not recall the name and her symptoms did not improve. They started her on amoxicillin and she stopped it two days ago because it started to cause her some itchiness. Patient is still have the same symptoms of increased urinary symptoms increased urinary frequency foul odor of urine and burning with urination. Patient also has some suprapubic discomfort. Initial Vital Signs: Temp :97.8 BP:130/73 HR:100 RR:19 SpO2: 97 Past Medical History:DM, ASTHMA, HYPOTHYROID, GLAUCOMA Past Surgical History: CHOLECYSTECTOMY, HYSTERECTOMY, APPENDECTOMY Social History: Denies smoking, ETOH, or drug use. Medications: DENIES ANY Allergies: MACROBID, AMOXICILLIN, CIPROFLOXACIN, SULFA DRUGS REVIEW OF SYSTEMS: CONSTITUTIONAL: Denies acute: fever, diaphoresis, chills, generalized weakness. HEAD: Denies acute: headache, photophobia Eyes: Denies acute: Double vision, vision loss, eye pain, eye discharge. EARS: Denies acute: tinnitus, hearing loss, ear discharge, ear pain, THROAT: Denies acute: sore throat, swelling, difficulty swallowing , pain with swallowing, change in voice. NECK: Denies acute: neck pain, neck swelling, stiff neck. HEART: Denies acute : chest pain, palpitations, LUNGS: Denies acute: SOB, wheezing, cough, hemoptysis ABDOMEN: Denies acute: abdominal pain, Nausea, Vomiting, diarrhea, melena , hematemesis, hematochezia SKIN: Denies acute: rash, redness, lesions, itchiness. EXTREMITIES: Denies acute: calf pain, numbness, tingling, weakness, denies pain in extremity. Denies acute: Low back pain. Neuro: Denies acute: focal neurological deficit, motor or sensory focal neurological deficit, tremors, seizure like activity, confusion, dizziness, change in mental status, loss of bowel or bladder function, cauda equina like symptoms. : Denies acute: , hematuria, flank pain, PSYCH: Denies acute: hallucination, suicidal ideation, homicidal ideation. FEMALE: Denies acute: abnormal vaginal bleeding, foul odor, unusual discharge. PHYSICAL EXAM: General: no acute distress, awake and alert. Head: normocephalic, atraumatic. Neck: supple, trachea is midline, no swelling. Throat: Normal phonation. Eyes:, no erythema, no purulent discharge, no proptosis, no icterus. Heart: regular rate, regular rhythm, no significant murmur appreciated. Lungs: no apparent respiratory distress, Able to speak in full sentences. No wheezing, no rhonchi, no crackles. No stridors Clear to auscultation bilaterally. Abdomen: Suprapubic tender to palpation, non distended, soft, no guarding, no rebound, + bowel sounds. Neuro: Awake, Alert, oriented to name, self, situation, follows commands GCS=15. Speech is normal. Skin: no petechia, no purpura, no cyanosis, non-pale, not jaundice. Lower extremities: --no - Pitting edema no deformity, no focal swelling, no calf TTP. Makes eye contact. moves all four extremities. Ambulating in the ED independently. ED COURSE: Time Seen by MD: 16:57 Primary Care Provider: UNKNOWN Reviewed notes: Nurses Notes, Allergies Allergies: Coded Allergies: Amoxicillin (Verified Allergy, Unknown, 07/11/24) Ciprofloxacin (Verified Allergy, Unknown, 01/10/22) Nitrofurantoin (Verified Allergy, Unknown, 07/11/24) Sulfa Antibiotics (Verified Allergy, Unknown, 01/10/22) Home Meds Active Scripts Cephalexin Monohydrate (Cephalexin) 500 Mg Cap, 1 CAP PO QID, #28 CAP Prov:NATY CAMOP MD 07/11/24 Acetaminophen (Tylenol) 325 Mg Cap, 325 MG PO BID PRN for 5 Days, #20 CAP Prov:FILIBERTO GARCIA MD 03/06/24 Hydroxyzine Pamoate (Vistaril) 50 Mg Cap, 1 CAP PO BID, #24 CAP Prov:LENNY WILLIAMSON 05/19/23 Triamcinolone Acetonide (Triamcinolone Acetonide) 0.025 % Cre, 1 APPLIC TOP BID, #45 GRAMS Prov:LENNY WILLIAMSON 05/19/23 Promethazine-Dm (Promethazine Dm 6.25-15 mg/5Ml) 1 Cherelle Cherelle, 5 ML PO TID, #160 ML Prov:LENNY WILLIAMSON 04/27/23 Benzocaine-Menthol (Mouth-Thro (Cepacol Sore Throat) 1 Gena Gena, 1 GENA MT Q4HPRN PRN, #24 GENA as needed for soretrhoat Prov:USHADAVIDMAGUE Hernández [employer] 04/14/23 Albuterol Sulfate (VENTOLIN MDI) 90 Mcg Ih, 1 PUFF IN Q4HPRN PRN, #1 INH as needed for cough congestion wheezing or shortness ofbreath Prov:USHAMARTAAyden [employer] 04/14/23 Benzonatate (Benzonatate) 200 Mg Cap, 1 CAP PO TID, #30 CAP as needed for cough Prov:USHADAVIDMAGUE Hernández [employer] 04/14/23 Prednisone (Prednisone) 20 Mg Tab, 1 TAB PO DAILY for 5 Days, #5 TAB start tomorrow for 4 days Prov:USHADAVIDMAGUE Hernández [employer] 04/14/23 Azithromycin (Zithromax Z-Abner) 250 Mg Tab, 1 TAB PO DAILY for 5 Days, #6 TAB 2 tabs today then 1 tab start tomorrow for 4 days Prov:USHADAVIDMAGUE Hernández [employer] 04/14/23 Miconazole Nitrate (Miconazole) 2 % Cre, 2 % EX BID for 14 Days, #15 GM 0 Refills Prov:JAMILA JAIME [facility] 05/02/22 Prednisone (Prednisone) 20 Mg Tab, 20 MG PO DAILY for 3 Days, #3 TAB 0 Refills Prov:JAMILA JAIME [facility] 05/02/22 Promethazine-Dm (Promethazine Dm 6.25-15 mg/5Ml) 1 Cherelle Cherelle, 5 ML PO Q4HPRN PRN, #120 ML 0 Refills Prov:JAMILA JAIME [facility] 05/02/22 Amoxicillin Trihydrate (Amoxicillin) 500 Mg Cap, 2 CAP PO Q8HR for 10 Days, #50 CAP 0 Refills Prov:JAMILA JAIME [facility] 05/02/22 Nitrofurantoin (MACRODANTIN CAPSULE) 50 Mg Cp, 50 MG GT BID, #14 CAP Prov:APOLONIA QUINONEZ MD 01/10/22 Nitrofurantoin Monohydrate Mac (Macrobid) 100 Mg Cap, 100 MG PO BID for 7 Days, #14 CAP Prov:SHANE AGARWAL MD 11/28/21 Reported Medications Travoprost (Travatan Z) 0.004 % Sarmad, 1 DROP EACHEYE QAM, #2.5 ML 2 Refills 02/28/19 Losartan Potassium (Losartan Potassium) 50 Mg Tab, 50 TAB PO DAILY, #90 TAB 5 Refills 03/03/18 Metformin Hydrochloride (Metformin Hcl) 500 Mg Tab, 1000 MG PO BIDWM for 90 Days, MG 03/02/18 Hydrocodone-Acetaminophen (Jeddo 10-325 mg) 1 Tab Tab, 1 TAB PO TID, TAB 01/01/18 Levothyroxine Sodium (Synthroid) 112 Mcg Tab, 1 TAB PO DAILY, #30 TAB 5 Refills 01/01/18 Omeprazole (PRILOSEC) 20 Mg Cap, 20 CAP PO DAILY, #30 CAP 1 Refill 05/06/14 Information Source: Patient Mode of Arrival: Ambulatory Severity: Moderate Timing: Months Duration: Since onset Prehospital treatment: None Onset: Spontaneous Symptoms: Dysuria, Frequency History of: UTI Location: None Modifying factors: None associated signs and symptoms: Dysuria, Frequency Was a procedure done? Was a procedure done?: No Differential Diagnosis Kidney stone (Female): N/A Urinary Problem (Female): Pyelonephritis, Urinary retention, Urolithiasis, UTI, Vaginitis X-Ray, Labs, Meds, VS Vital Signs Date Time Temp Pulse Resp B/P (MAP) Pulse Ox O2 Delivery O2 Flow Rate FiO2 07/12/24 03:00 97.7 99 13 143/73 (96) 98 97.7 07/11/24 22:20 97.9 89 18 155/71 (99) 100 97.9 07/11/24 17:39 98.0 91 16 146/61 (89) 99 98.0 07/11/24 17:35 Room Air* 0 21 07/11/24 17:00 97.8 100 19 130/73 (92) 97 Lab Test 07/12/24 01:35 07/11/24 23:19 07/11/24 22:17 07/11/24 19:35 Range/Units Lactic Acid Level 3.2 *H 2.8 *H 3.0 *H 0.4-2.0 mmol/L POC Glucose 83 70-106 mg/dl Test 07/11/24 17:52 07/11/24 17:46 07/11/24 17:26 07/11/24 17:18 Range/Units Urine Color Light-yellow Yellow Urine Clarity Clear Clear Urine pH 5.0 5.0-9.0 Urine Specific [place] 1.016 1.001-1.035 Urine Protein Negative Negative Urine Ketones Negative Negative Urine Blood Negative Negative /uL Urine Nitrite Negative Negative Urine Bilirubin Negative Negative Urine Urobilinogen Normal Negative mg/dL Urine Leukocyte Esterase 3+ Negative /uL Urine RBC 2 0 - 4 /hpf Urine Microscopic WBC 25 H 0-5 /HPF Urine Squamous Epithelial Cells Few <5 /hpf Urine Bacteria None seen None Seen /hpf Urine Mucus Few None Seen Urine Glucose Normal Normal mg/dL POC Glucose 134 H 70-106 mg/dl White Blood Count 13.5 H 4.4-10.8 10^3/uL Red Blood Count 4.99 4.0-5.20 10^6/uL Hemoglobin 12.1 L 12.2-16.2 g/dL Hematocrit 38.5 36.0-46.0 % Mean Corpuscular Volume 77.0 L 80.0-100.0 fL Mean Corpuscular Hemoglobin 24.2 L 28.0-32.0 pg Mean Corpuscular Hemoglobin Concent 31.4 L 32.0-36.0 g/dL Red Cell Distribution Width 17.5 H 11.8-14.3 % Platelet Count 334 140-450 10^3/uL Mean Platelet Volume 9.1 6.9-10.8 fL Neutrophils (%) (Auto) 55.4 37.0-80.0 % Lymphocytes (%) (Auto) 34.6 10.0-50.0 % Monocytes (%) (Auto) 6.0 0.0-12.0 % Eosinophils (%) (Auto) 2.9 0.0-7.0 % Basophils (%) (Auto) 1.1 0.0-2.0 % Neutrophils # (Auto) 7.5 1.6-8.6 10 ^3/uL Lymphocytes # (Auto) 4.7 0.4-5.4 10 ^3/uL Monocytes # (Auto) 0.8 0-1.3 10 ^3/uL Eosinophils # (Auto) 0.4 0-0.8 10 ^3/uL Basophils # (Auto) 0.2 0-0.2 10 ^3/uL Nucleated Red Blood Cells 0.0 % Sodium Level 137 136-145 mmol/L Potassium Level 4.1 3.5-5.1 mmol/L Chloride Level 102 98-107 mmol/L Carbon Dioxide Level 21 20-31 mmol/L Anion Gap 14 5-15 Blood Urea Nitrogen 12 9-23 mg/dL Creatinine 0.78 0.550-1.02 mg/dL Glomerular Filtration Rate Calc 82 >90 mL/min BUN/Creatinine Ratio 15.4 10.0-20.0 Serum Glucose 111 H 74-106 mg/dL Calcium Level 10.3 8.7-10.4 mg/dL Total Bilirubin 0.6 0.2-1.0 mg/dL Aspartate Amino Transferase (AST) 17 13-40 U/L Alanine Aminotransferase (ALT) 21 7-40 U/L Alkaline Phosphatase 86 46-116 U/L Total Protein 8.0 5.7-8.2 g/dL Albumin 5.2 H 3.2-4.8 g/dL Lactic Acid Level 3.9 *H 0.4-2.0 mmol/L Current Medications Medications (Trade) Dose Ordered Sig/Gualberto Route Start Time Stop Time Status Last Admin Ceftriaxone Sodium 50 ml @ 100 mls/hr ONCE ONCE IV 07/11/24 17:00 07/11/24 17:29 DC 07/11/24 17:29 Diphenhydramine HCl (Benadryl Injection) 50 mg ONCE ONCE IV 07/11/24 17:30 07/11/24 17:31 DC 07/11/24 17:29 Sodium Chloride 1,000 ml @ 1,000 mls/hr Q1H ONCE IV 07/11/24 21:00 07/11/24 21:59 DC 07/11/24 22:01 Sodium Chloride 1,000 ml @ 1,000 mls/hr Q1H ONCE IV 07/11/24 21:45 07/11/24 22:44 DC 07/11/24 00:00 Aztreonam 1 gm/ Dextrose 50 ml @ 50 mls/hr ONCE ONCE IV 07/11/24 21:45 07/11/24 22:44 DC 07/11/24 22:26 [facility] [id number] [facility] [address] Ph: [phone] DIAGNOSTIC IMAGING Diagnostic Imaging Report : [id number] Signed PATIENT: JASON OLSEN ACCT: [id number] UNIT: [id number] : 1955 LOC: ER ROOM / BED: / AGE / SEX: 68 / F ADM STATUS: REG ER SERVICE [id number] ORDERING PHYSICIAN: NATY CAMPO MD PROCEDURE(s): ABPL - CT AB PEL WO CON-NO ORAL OR IV REASON: left sided kidney stones evaluation ORDER NUMBER(s): [id number], ACCESSION NUMBER(s): [id number] Exam: CT CT AB PEL WO CON-NO ORAL OR IV History: left sided kidney stones evaluation Comparison Study: CT CT AB PEL WO CON-NO ORAL OR IV on DOS: 07/18/22, CT ABD PELVIS WO CONTRAST on DOS: 10/11/21, CT ABD PELVIS WO CONTRAST on DOS: 02/27/19, CT ABD PELVIS WO CONTRAST on DOS: 11/30/18 Technique: Multidetector spiral CT of the abdomen was performed from lung bases to pubic symphysis. Imaging was performed without IV contrast. Axial, coronal and sagittal multiplanar reformats were obtained from the axial data set by the technologist. Radiation Dose : 1. Abdomen/Pelvis: CTDIvol 17 mGy, DLP 966 mGy*cm. Findings: Evaluation of solid organs is limited due to lack of intravenous contrast use. Lung Bases: No acute or significant lung base finding. Normal heart size. No pleural or pericardial effusion. Liver: The liver is normal in size. No focal lesions. Gallbladder and Biliary Tree: Unremarkable Spleen: Unremarkable Pancreas: The pancreas is grossly normal in appearance. Adrenal Glands: Unremarkable Kidneys: Kidneys are grossly normal without calculi or hydronephrosis. Bladder: Grossly unremarkable for degree of distention. Bowel: The stomach is grossly normal in appearance. Small bowel and colon are normal in caliber and distribution. The appendix is not visualized; however, no secondary findings of acute appendicitis identified. Ascites: Absent Lymphadenopathy: No mesenteric, retroperitoneal or periportal lymphadenopathy. Abdominal Wall and Mesentery: Unremarkable. Vasculature: The visualized abdominal aorta is normal in size and caliber. Evaluation of abdominal and pelvic vessels is limited due to lack of intravenous contrast. Pelvic Organs: Unremarkable Musculoskeletal: No aggressive focal bony lesions, acute fractures or dislocati on. IMPRESSION: 1. No acute abdominal or pelvic findings. NO NEPHROLITHIASIS. Radiation optimization: All CT scans at this facility use at least one of these dose optimization techniques: automated exposure control mA and/or kV adjustment per patient size (includes targeted exams where dose is matched to clinical indication) or iterative reconstruction. ATED BY: MARTIN DEL VALLE MD DICTATED DATE/TIME: 07/12/24131 SIGNED BY: MARTIN DEL VALLE MD SIGNED DATE/TIME: 07/12/24131 CC: CC: Time of 1ST Reevaluation: 17:07 Reevaluation 1ST: Unchanged Time of 2ND Reevaluation: 22:11 (The case was discussed with the admitting team (HPI, physical exam, labs and diagnostic tests that were available at the time of disposition, ED course, treatment plan) on the phone. They agreed to evaluate and disposition the patient. Please see their consultation notes and final disposition. Dr. Kapoor. ) Patient Education/Counseling: Diagnosis, Treatment Family Education/Counseling: No Family Present Comments Patient presented with the above HPI.--- UTI ---workup was initiated. patient was found with the above mentioned diagnosis. the following medications were ordered: ROCEPHIN please refer to order lists of meds and tests obtained by myself Dr. Pineda. Patient ED course and VS have been stabilized. Patient has been reassessed in the ED and remained in a stable condition. Pertinent incidental findings were discussed with the patient and/or family. Patient/family voices understanding and is agreeable with plan. Patient has been observed in the ED adequate length of time to insure improvement/stability. Escalation of care considered: Consideration of escalation to observation or admission Patient was ADMITTED to the medicine team for further evaluation and treatment of their presentation. Please see the medicine team final disposition. All the reports of any imaging studies that were ordered by myself were reviewed by myself. Departure 1 Departure Time of Disposition: 18:19 Impression: Primary Impression: Acute UTI (urinary tract infection) Additional Impressions: Leukocytosis Elevated lactic acid level Sepsis Disposition: ADMITTED INPATIENT Admit to: Tele Condition: Guarded e-Prescriptions Cephalexin Monohydrate (Cephalexin) 500 Mg Cap 1 CAP PO QID, #28 CAP Prov: NATY CAMPO MD 07/11/24 Discharged With: Self Critical Care Note Critical Care Time?: Yes (35 min-critical care time only) Heart Score Heart Score: Heart Score Response (Comments) Value History N/A 0 EKG N/A 0 Age N/A 0 Risk Factors N/A 0 Troponin N/A 0 Total 0 I personally scribed for MARLENE PINEDA DO ([email or web address]) on 07/11/24 at 16:59. Electronically submitted by Veronique Huitron ([email or web address]). I personally scribed for MARLENE PINEDA DO ([email or web address]) on 07/11/24 at 17:16. Electronically submitted by Veronique Huitron ([email or web address]). I personally scribed for MARLENE PINEDA DO ([email or web address]) on 07/11/24 at 17:18. Electronically submitted by Veronique Huitron ([email or web address]). I personally scribed for MARLENE PINEDA DO ([email or web address]) on 07/11/24 at 17:19. Electronically submitted by Veronique Huitron ([email or web address]). I personally scribed for MARLENE PINEDA DO ([email or web address]) on 07/11/24 at 18:19. Electronically submitted by Veronique Huitron ([email or web address]). MARLENE PINEDA DO Jul 11, 2024 16:59
[2024-07-11] MEDS: cefTRIAXone 1GM/50ML D5W 50 ML IV ONE (17:29)
[2024-07-11] MEDS: diphenhdrAMINE HCL 50 MG/1 ML VL IV ONE (17:29)
[2024-07-11 17:55] LABS: Urine Bacteria None Seen /hpf (None Seen)
[2024-07-11 18:07] LABS: Basophils # (auto) 0.2 10 ^3/uL (0-0.2); Basophils % (auto) 1.1 % (0.0-2.0); Eosinophils # (auto) 0.4 10 ^3/uL (0-0.8); Eosinophils % (auto) 2.9 % (0.0-7.0); Hematocrit 38.5 % (36.0-46.0); Hemoglobin 12.1 g/dL (12.2-16.2); Lymphocytes # (auto) 4.7 10 ^3/uL (0.4-5.4); Lymphocytes % (auto) 34.6 % (10.0-50.0); Mean Corpuscular Hemoglobin 24.2 pg (28.0-32.0); Mean Corpuscular Hgb Conc. 31.4 g/dL (32.0-36.0); Monocytes # (auto) 0.8 10 ^3/uL (0-1.3); Neutrophils # (auto) 7.5 10 ^3/uL (1.6-8.6); Neutrophils % (auto) 55.4 % (37.0-80.0); Platelet Count (auto) 334 10^3/uL (140-450); Red Blood Cells 4.99 10^6/uL (4.0-5.20); Red Cell Distribution Width 17.5 % (11.8-14.3); White Blood Cell 13.5 10^3/uL (4.4-10.8)
[2024-07-11 18:14] LABS: Urine Blood Negative /uL (Negative); Urine Clarity Clear (Clear); Urine Color Light-Yellow (Yellow); Urine Mucus FEW (None Seen); Urine Protein, UAD Negative (Negative); Urine Specific Gravity 1.016 (1.001-1.035); Urine Squamous Epithelial Cell FEW /hpf (<5); Urine Urobilinogen Normal (Negative); Urine WBC 25 /HPF (0-5)
[2024-07-11 18:20] LABS: Alanine Aminotransferase 21 U/L (7-40); Alkaline Phosphatase 86 U/L (46-116); Aspartate Aminotransferase 17 U/L (13-40); BUN/Creatinine Ratio 15.4 (10.0-20.0); Blood Urea Nitrogen 12 mg/dL (9-23); Calcium 10.3 mg/dL (8.7-10.4); Carbon Dioxide 21 mmol/L (20-31)
[2024-07-11 18:21] LABS: Albumin 5.2 g/dL (3.2-4.8); Glucose 111 mg/dL (74-106)
[2024-07-11 18:22] LABS: Bilirubin, Total 0.6 mg/dL (0.2-1.0)
[2024-07-11 18:29] LABS: Anion Gap 14 (5-15); Chloride 102 mmol/L (98-107); Potassium 4.1 mmol/L (3.5-5.1); Sodium 137 mmol/L (136-145)
[2024-07-11 18:30] LABS: Lactic Acid w/Reflex 3.9 mmol/L (0.4-2.0)
[2024-07-11] MEDS: SODIUM CHLORIDE 0.9% 1,000 ML IV ONE ×2 (22:01)
[2024-07-11] MEDS: AZTREONAM 1 GM INJ VIAL ONE (22:26)
[2024-07-11] MEDS: AZTREONAM 1GM INJ 1 GM in D5W 5% 50 ML IV ONE (22:26)
[2024-07-11] MEDS ORDERED: CEPH500C PO (23:03)
--- NOTE | 2024-07-11 23:54 | DVH ---
Exam: XY KUB ABDOMEN SINGLE VIEW Indication: rule out kidney stones Comparison: None Technique: AP radiographs of the abdomen. Findings/Impression: Two small radiopaque densities are noted along the course of the mid to distal left ureter which may represent calculi. Several small phleboliths noted in the pelvis. No dilated loops of large or small bowel identified. Prior cholecystectomy. Lung bases are clear. No significant oseous abnormality noted.
[2024-07-12 00:05] LABS: Lactic Acid w/Reflex 2.8 mmol/L (0.4-2.0)
--- NOTE | 2024-07-12 01:34 | DVH ---
Exam: CT CT AB PEL WO CON-NO ORAL OR IV History: left sided kidney stones evaluation Comparison Study: CT CT AB PEL WO CON-NO ORAL OR IV on DOS: 07/18/22, CT ABD PELVIS WO CONTRAST on DOS : 10/11/21, CT ABD PELVIS WO CONTRAST on DOS: 02/27/19, CT ABD PELVIS WO CONTRAST on DOS: 11/30/18 Technique: Multidetector spiral CT of the abdomen was performed from lung bases to pubic symphysis. Imaging was performed without IV contrast. Axial, coronal and sagittal multiplanar reformats were ob tained from the axial data set by the technologist. Radiation Dose : 1. Abdomen/Pelvis: CTDIvol 17 mGy, DLP 966 mGy*cm. Findings: Evaluation of solid organs is limited due to lack of intravenous contrast use. Lung Bases: No acute or significant lung base finding. Normal heart size. No pleural or pericardial effusion. Liver: The liver is normal in size. No focal lesions. Gallbladder and Biliary Tree: Unremarkable Spleen: Unremarkable Pancreas: The pancreas is grossly normal in appearance. Adrenal Glands: Unremarkable Kidneys: Kidneys are grossly normal without calculi or hydronephrosis. Bladder: Grossly unremarkable for degree of distention. Bowel: The stomach is grossly normal in appearance. Small bowel and colon are normal in caliber and d istribution. The appendix is not visualized; however, no secondary findings of acute appendicitis id entified. Ascites: Absent Lymphadenopathy: No mesenteric, retroperitoneal or periportal lymphadenopathy. Abdominal Wall and Mesentery: Unremarkable. Vasculature: The visualized abdominal aorta is normal in size and caliber. Evaluation of abdominal a nd pelvic vessels is limited due to lack of intravenous contrast. Pelvic Organs: Unremarkable Musculoskeletal: No aggressive focal bony lesions, acute fractures or dislocation. IMPRESSION: 1. No acute abdominal or pelvic findings. NO NEPHROLITHIASIS. Radiation optimization: All CT scans at this facility use at least one of these dose optimization erick hniques: automated exposure control mA and/or kV adjustment per patient size (includes targeted exam s where dose is matched to clinical indication) or iterative reconstruction.
[2024-07-12 03:00] VITALS: BP 143/73; PULSE 99; RESP 13; TEMP 97.7; O2SAT 98
--- NOTE | 2024-07-15 12:33 | DVHINCON2 ---
DATE OF CONSULTATION: 07/11/2024 CHIEF COMPLAINT: Coming in for urinary burning sensation, suprapubic pain and left flank pain. HISTORY OF PRESENT ILLNESS: This is a 68-year-old female who presents to the Emergency Room with chief complaint as above. The patient has known history of diabetes mellitus type 2, hypothyroidism, asthma, essential hypertension, open angle glaucoma, who has been dealing with left flank pain and suprapubic pain for about 2 months now. The patient says she has gone through multiple courses of oral antibiotics, was seen 2 weeks ago at [facility], had a CT abdomen and pelvis completed, which I reviewed that showed no acute intraabdominal pathology, hydronephrosis, pyelonephritis or stones. The patient, at that time, was also ruled out for underlying urinary tract infection. The patient presented again to [facility] earlier today where she had a full workup and was diagnosed with underlying UTI and was given nitrofurantoin. However, the patient has felt unsatisfied especially because the patient does not take nitrofurantoin due to medication allergy, came in today, this evening, to be reassessed. The patient continues to have left flank pain and suprapubic pain. She denies any fever or chills. She does confirm that she has some urinary frequency and urgency, but no dysuria. She denies any fever. She does have occasional chills, has some nausea earlier today and one episode of vomiting according to her. She does endorse again flank pain on the left side. It has been ongoing for about 2 months. Denies any history of kidney stones, any bloody urine. The patient denies any chest pain or shortness of breath, any cough or phlegm, diarrhea, constipation, bloody or tarry stools. PAST MEDICAL HISTORY: Diabetes mellitus type 2, hypothyroidism, open angle glaucoma, asthma, essential hypertension. PAST SURGICAL HISTORY: Total hysterectomy in 1984, appendectomy in 1984, cholecystectomy in 1974 and cataract surgery bilaterally. SOCIAL HISTORY: No tobacco, no alcohol, no illicit drugs. MEDICATIONS: At home per medical reconciliation. MEDICATION ALLERGIES: TO AMOXICILLIN, CIPROFLOXACIN, NITROFURANTOIN AND SULFA ANTIBIOTICS. REVIEW OF SYSTEMS: A 10-point review of system was covered with the patient and was negative with the exception to all present in history of present illness. PHYSICAL EXAMINATION: VITAL SIGNS: Temperature 97.7, pulse rate 99, respiratory rate of 13, blood pressure 143/73, pulse ox about 98% on room air. GENERAL: Seems to be alert, oriented x 4, not in acute distress, female, sitting up in a chair. HEENT: Normocephalic, atraumatic. Extraocular muscles intact. Pupils are equally round, react to light and accommodation. Mucous membranes were moist. CARDIOVASCULAR: S1, S2 positive, regular rate and rhythm. No rubs, gallops or murmurs. LUNGS: Seems to be clear to auscultation bilaterally. No wheeze, rhonchi or rales. ABDOMEN: Seems to be soft, nontender, nondistended, positive bowel sounds. There seems to be some suprapubic tenderness on palpation. No guarding, no rebound. BACK: The patient has mildly positive Fung's punch on examination of the left costophrenic angle region, EXTREMITIES: No lower extremity edema, clubbing or cyanosis. NEUROLOGIC: No focal deficits on examination. Cranial nerves testing 2 to 12 overall seems to be intact. LABORATORY WORKUP: Shows a white count 13.5, H and H of 12.1/38.5, platelet count of 334,000. No neutrophil shift. Chemistry showed a sodium of 137, potassium of 4.1, chloride of 102, carbon dioxide of 21, anion gap of 14, BUN of 12, creatinine of 0.78, glucose of 111. Lactic acid initially of 3.9 down to 3 then to 2.8 then to 3.2. AST of 17, ALT of 21, alkaline phosphatase of 86. Urinalysis shows negative nitrites, 3+ leukocyte esterase, 2 rbc's, 25 wbc's. Blood cultures are no growth after 48 hours. Urine cultures preliminary reading shows more than 3 colony forming units of Gram-positive hayley over 100,000 colony forming units per mL and likely a contamination. IMAGING: X-ray chest, abdomen and pelvis shows two small radiopaque densities are noted along the course of the mid to distal left ureter, which may represent calculi, several small phleboliths noted in the pelvis. No dilated loops of large or small bowel identified, prior cholecystectomy, lung bases are clear. No significant oseous abnormality. CT abdomen and pelvis was also completed without contrast, shows no acute abdominal or pelvic findings. No nephrolithiasis. DIAGNOSES: * Urinary tract infection. * Suprapubic pain. PLAN: The patient was seen in the Emergency Room. Full examination was completed. The patient's medical records from [facility] from two weeks ago and earlier today were reviewed. The patient had a KUB completed here due to the fact that the patient did have a little bit of a Fung's punch positive on the left costophrenic angle. A KUB imaging did show possibility of opacification around the left ureter. CT abdomen was completed for verification for any calcium stones; however, the patient's imaging came back benign without presence of any stones. The patient has been informed that she does probably have underlying urinary tract infections and she will be treated with antibiotics. She did receive a dose of Rocephin and aztreonam in the Emergency Room for underlying UTI. The patient did receive also 2 liters of fluids during her ER course. The patient's CT imagings that were completed from 2 weeks ago at [facility] were also benign with any findings. The patient's urine cultures that were completed here at our facility as well as [facility] both showed multiple Gram-positive colony forming units and likely contamination on both urine cultures. The patient does have an arranged appointment with Urology, which I emphasized her to follow up with that appointment given that she continuously has left flank pain despite having had taken multiple courses of antibiotics. The patient's urine cultures and urinalysis from 2 weeks ago at [facility] were negative, so the patient did not have an infection at that point, but currently, clearly the patient, based on her UA, does have some underlying infection in the setting of mild leukocytosis. The patient, from my standpoint, is cleared for discharge for follow up with her primary care provider and Urology. The patient will be given Keflex q.i.d. for 7 days. The patient will be informed to return to the ER in case of any fever, chills, chest pain, shortness of breath, palpitations, dizziness or any other concerning signs and/or symptoms. [facility] Case Management to arrange her followups. Cezar Mclaughlin MD LM/MAGNOLIA/CYNTHIA TID: [id number] RECEIPT: [id number]
== END 2024-07-12 03:21 | disposition home or self-care (01) ==
LOC: ER 16:32
DX: A41.9 Sepsis, unspecified organism (principal); N39.0 Urinary tract infection, site not specified; E87.20 Acidosis, unspecified; D72.829 Elevated white blood cell count, unspecified; J45.909 Unspecified asthma, uncomplicated; I10 Essential (primary) hypertension; K59.00 Constipation, unspecified; E11.39 Type 2 diabetes mellitus with other diabetic ophthalmic complication; E03.9 Hypothyroidism, unspecified; Z79.890 Hormone replacement therapy; Z79.899 Other long term (current) drug therapy; Z88.0 Allergy status to penicillin; Z88.1 Allergy status to other antibiotic agents; Z88.2 Allergy status to sulfonamides; Z90.49 Acquired absence of other specified parts of digestive tract; Z90.710 Acquired absence of both cervix and uterus
CPT/HCPCS: 36415; 74018; 74176; 80053; 81001; 82947; 83605; 85025; 87040; 87086; 96361; 96365; 96367; 96375; 99291; J0696; J1200; J7030; J7060; 82962

== ENCOUNTER 2024-10-16 15:31 | Emergency (ER) | payer BC, MEDICAID ==
[~2024-10-16] VITALS: Ht 154.9 cm; Wt 78.6 kg
--- NOTE | 2024-10-16 16:20 | ED.PDOC ---
General HPI Comments 69y F who presents to the ED for chief complaint of flank pain. Pt states she has been having lower back pain for the past 1 week. Pt states she went to urgent care 1 week prior and states she was told she has UTI and given abx and discharged. Pt states since, she has continued to have L sided flank pain getting progressively worse. Pt in the ED, rates her pain 7/10, constant, with no noted exacerbating or relieving factors. Pt is still on abx for her UTI for she is still taking abx. Pt in the ED, otherwise has nausea but denies any other symptoms. Chief Complaint: Back Pain Time Seen by MD: 16:17 Primary Care Provider: UNKNOWN Reviewed notes: Nurses Notes, Medications, Allergies Allergies: Coded Allergies: Amoxicillin (Verified Allergy, Unknown, 07/11/24) Ciprofloxacin (Verified Allergy, Unknown, 01/10/22) Nitrofurantoin (Verified Allergy, Unknown, 07/11/24) Sulfa Antibiotics (Verified Allergy, Unknown, 01/10/22) Home Meds Active Scripts Cephalexin Monohydrate (Cephalexin) 500 Mg Cap, 1 CAP PO QID, #28 CAP Prov:NATY CAMPO MD 07/11/24 Acetaminophen (Tylenol) 325 Mg Cap, 325 MG PO BID PRN for 5 Days, #20 CAP Prov:FILIBERTO GARCIA MD 03/06/24 Hydroxyzine Pamoate (Vistaril) 50 Mg Cap, 1 CAP PO BID, #24 CAP Prov:LENNY WILLIAMSON 05/19/23 Triamcinolone Acetonide (Triamcinolone Acetonide) 0.025 % Cre, 1 APPLIC TOP BID, #45 GRAMS Prov:LENNY WILLIAMSON 05/19/23 Promethazine-Dm (Promethazine Dm 6.25-15 mg/5Ml) 1 Cherelle Cherelle, 5 ML PO TID, #160 ML Prov:LENNY WILLIAMSON 04/27/23 Benzocaine-Menthol (Mouth-Thro (Cepacol Sore Throat) 1 Luanne Luanne, 1 LUANNE MT Q4HPRN PRN, #24 LUANNE as needed for soretrhoat Prov:VANESSA KERR [employer]UXILIARY POWERPLANT OPERATOR 04/14/23 Albuterol Sulfate (VENTOLIN MDI) 90 Mcg Ih, 1 PUFF IN Q4HPRN PRN, #1 INH as needed for cough congestion wheezing or shortness ofbreath Prov:VANESSA KERR Q AUXILIARY POWERPLANT OPERATOR 04/14/23 Benzonatate (Benzonatate) 200 Mg Cap, 1 CAP PO TID, #30 CAP as needed for cough Prov:VANESSA KERR Q AUXILIARY POWERPLANT OPERATOR 04/14/23 Prednisone (Prednisone) 20 Mg Tab, 1 TAB PO DAILY for 5 Days, #5 TAB start tomorrow for 4 days Prov:VANESSA KERR Q AUXILIARY POWERPLANT OPERATOR 04/14/23 Azithromycin (Zithromax Z-Abner) 250 Mg Tab, 1 TAB PO DAILY for 5 Days, #6 TAB 2 tabs today then 1 tab start tomorrow for 4 days Prov:VANESSA KERR Q AUXILIARY POWERPLANT OPERATOR 04/14/23 Miconazole Nitrate (Miconazole) 2 % Cre, 2 % EX BID for 14 Days, #15 GM 0 Refills Prov:JAMILA JAIME [facility] 05/02/22 Prednisone (Prednisone) 20 Mg Tab, 20 MG PO DAILY for 3 Days, #3 TAB 0 Refills Prov:JAMILA JAIME [facility] 05/02/22 Promethazine-Dm (Promethazine Dm 6.25-15 mg/5Ml) 1 Cherelle Cherelle, 5 ML PO Q4HPRN PRN, #120 ML 0 Refills Prov:JAMILA JAIME [facility] 05/02/22 Amoxicillin Trihydrate (Amoxicillin) 500 Mg Cap, 2 CAP PO Q8HR for 10 Days, #50 CAP 0 Refills Prov:JAMILA JAIME [facility] 05/02/22 Nitrofurantoin (MACRODANTIN CAPSULE) 50 Mg Cp, 50 MG GT BID, #14 CAP Prov:APOLONIA QUINONEZ MD 01/10/22 Nitrofurantoin Monohydrate Mac (Macrobid) 100 Mg Cap, 100 MG PO BID for 7 Days, #14 CAP Prov:SHANE AGARWAL MD 11/28/21 Reported Medications Travoprost (Travatan Z) 0.004 % Sarmad, 1 DROP EACHEYE QAM, #2.5 ML 2 Refills 02/28/19 Losartan Potassium (Losartan Potassium) 50 Mg Tab, 50 TAB PO DAILY, #90 TAB 5 Refills 10/20/18 Metformin Hydrochloride (Metformin Hcl) 500 Mg Tab, 1000 MG PO BIDWM for 90 Days, MG 03/02/18 Hydrocodone-Acetaminophen ([place] 10-325 mg) 1 Tab Tab, 1 TAB PO TID, TAB 01/01/18 Levothyroxine Sodium (Synthroid) 112 Mcg Tab, 1 TAB PO DAILY, #30 TAB 5 Refills 01/01/18 Omeprazole (PRILOSEC) 20 Mg Cap, 20 CAP PO DAILY, #30 CAP 1 Refill 05/06/14 Information Source: Patient Mode of Arrival: Ambulatory Brought in by: self Severity: Moderate Timing: Days Duration: Since onset Prehospital treatment: Treatment (abx for uti) Onset: Spontaneous Symptoms: None History of: UTI Location: (L)Flank Modifying factors: None associated signs and symptoms: Nausea, Flank Pain Past Medical History PAST MEDICAL HISTORY: Anxiety, Asthma, DM, Gallstones, GERD, High Lipids, HTN, Thyroid, UTI'S Surgical History: Appendectomy, Cholecystectomy, Hysterectomy, Tonsillectomy LICENSED ELECTRICIAN History: Denies all LICENSED ELECTRICIAN Hx Family History Family History: Reviewed,noncontributory to illness, Family hx of heart francisco j Social History Smoker: Non-Smoker Alcohol: Denies ETOH Use Drugs: Denies Drug Use Lives In: Home Constitutional: denies: chills, diaphoresis, fatigue, fever, malaise, sweats, weakness, others EENTM: denies: blurred vision, double vision, ear bleeding, ear discharge, ear drainage, ear pain, ear ringing, eye pain, eye redness, hearing loss, mouth pain, mouth swelling, nasal discharge, nose bleeding, nose congestion, nose pain, photophobia, tearing, throat pain, throat swelling, voice changes, others Respiratory: denies: cough, hemoptysis, orthopnea, SOB at rest, shortness of breath, SOB with excertion, stridor, wheezing, others Cardiovascular: denies: chest pain, dizzy spells, diaphoresis, Dyspnea on exertion, edema, irregular heart beat, left arm pain, lightheadedness, palpitations, PND, syncope, others Gastrointestinal: reports: nausea; denies: abdomen distended, abdominal pain, blood streaked bowels, constipated, diarrhea, dysphagia, difficulty swallowing, hematemesis, melena, poor appetite, poor fluid intake, rectal bleeding, rectal pain, vomiting, others Genitourinary: reports: flank pain; denies: abnormal vagina bleeding, burning, dyspareunia, dysuria, frequency, hematuria, incontinence, pain, , vagina discharge, urgency, others Neurological: denies: dizziness, fainting, headache, left sided numbness, left sided weakness, numbness, paresthesia, pre-existing deficit, right sided numbness, right sided weakness, seizure, speech problems, tingling, tremors, weakness, others Musculoskeletal: denies: back pain, gout, joint pain, joint swelling, muscle pain, muscle stiffness, neck pain, others Integumetry: denies: bruises, change in color, change in hair/nails, dryness, laceration, lesions, lumps, rash, wounds, others Allergic/Immunocompromised: denies: Difficulty Healing, Frequent Infections, Hives, Itching, others Hematologic/Lymphatic: denies: anemia, blood clots, easy bleeding, easy bruising, swollen glands, others Endocrine: denies: excessive hunger, excessive sweating, excessive thirst, excessive urination, flushing, intolerance to cold, intolerance to heat, unexplained weight gain, unexplained weight loss, others Psychiatric: denies: anxiety, bipolar disorder, depression, hopeless, panic disorder, schizophrenia, sleepless, suicidal, others All Other Systems: Reviewed and Negative Physical Exam General Appearance: Mild Distress HEENT: Normal ENT Inspection, Pharynx Normal, TMs Normal Neck: Full Range of Motion, Non-Tender, Normal, Normal Inspection Respiratory: Chest Non-Tender, Lungs Clear, No Accessory Muscle Use, No Respiratory Distress, Normal Breath Sounds Cardiovascular: No Edema, No JVD, No Murmur, No Gallop, Normal Peripheral Pulses, Regular Rate/Rhythm Breast Exam: Deferred Gastrointestinal: No Organomegaly, Non Tender, No Pulsatile Mass, Normal Bowel Sounds, Soft Genitalia: Deferred Pelvic: Deferred Rectal: Deferred Extremities: No calf tenderness, Normal capillary refill, Normal inspection, Normal range of motion, Non-tender, No pedal edema Musculoskeletal : Apperance: Normal Neurologic: Alert, brand specialist II-XII nml as Tested, No Motor Deficits, Normal Affect, Normal Mood, No Sensory Deficits Cerebellar Function: Normal Reflexes: Normal Skin: Dry, Normal Color, Warm Lymphatic: No Adenopathy Was a procedure done? Was a procedure done?: No Differential Diagnosis Kidney stone (Female): DJD, Musculoskeletal pain, Pyelonephritis, Urinary obstruction, Urolithiasis, Other (lumbar radiculopathy) Urinary Problem (Female): PID, UTI X-Ray, Labs, Meds, VS Vital Signs Date Time Temp Pulse Resp B/P (MAP) Pulse Ox O2 Delivery O2 Flow Rate FiO2 10/16/24 18:27 98.0 95 17 140/70 (93) 99 98.0 10/16/24 18:27 95 17 99 Room Air 10/16/24 17:08 95 18 100 Room Air 10/16/24 17:08 97 16 136/72 (93) 100 10/16/24 15:55 98.2 98 18 143/53 (83) 98 98.2 Lab Test 10/16/24 16:35 10/16/24 16:03 Range/Units White Blood Count 9.0 4.4-10.8 10^3/uL Red Blood Count 4.49 4.0-5.20 10^6/uL Hemoglobin 11.0 L 12.2-16.2 g/dL Hematocrit 34.4 L 36.0-46.0 % Mean Corpuscular Volume 76.5 L 80.0-100.0 fL Mean Corpuscular Hemoglobin 24.4 L 28.0-32.0 pg Mean Corpuscular Hemoglobin Concent 31.8 L 32.0-36.0 g/dL Red Cell Distribution Width 17.3 H 11.8-14.3 % Platelet Count 318 140-450 10^3/uL Mean Platelet Volume 8.7 6.9-10.8 fL Neutrophils (%) (Auto) 49.7 37.0-80.0 % Lymphocytes (%) (Auto) 36.3 10.0-50.0 % Monocytes (%) (Auto) 8.7 0.0-12.0 % Eosinophils (%) (Auto) 3.9 0.0-7.0 % Basophils (%) (Auto) 1.4 0.0-2.0 % Neutrophils # (Auto) 4.5 1.6-8.6 10 ^3/uL Lymphocytes # (Auto) 3.3 0.4-5.4 10 ^3/uL Monocytes # (Auto) 0.8 0-1.3 10 ^3/uL Eosinophils # (Auto) 0.4 0-0.8 10 ^3/uL Basophils # (Auto) 0.1 0-0.2 10 ^3/uL Nucleated Red Blood Cells 0.0 % Sodium Level 141 136-145 mmol/L Potassium Level 3.9 3.5-5.1 mmol/L Chloride Level 108 H 98-107 mmol/L Carbon Dioxide Level 24 20-31 mmol/L Anion Gap 9 5-15 Blood Urea Nitrogen 10 9-23 mg/dL Creatinine 0.68 0.550-1.02 mg/dL Glomerular Filtration Rate Calc 94 >90 mL/min BUN/Creatinine Ratio 14.7 10.0-20.0 Serum Glucose 85 74-106 mg/dL Calcium Level 10.1 8.7-10.4 mg/dL Urine Color Colorless Yellow Urine Clarity Clear Clear Urine pH 5.5 5.0-9.0 Urine Specific [place] 1.004 1.001-1.035 Urine Protein Negative Negative Urine Ketones Negative Negative Urine Blood Negative Negative /uL Urine Nitrite Negative Negative Urine Bilirubin Negative Negative Urine Urobilinogen Normal Negative mg/dL Urine Leukocyte Esterase 1+ Negative /uL Urine RBC None seen 0 - 4 /hpf Urine Microscopic WBC 2 0-5 /HPF Urine Squamous Epithelial Cells Few <5 /hpf Urine Bacteria None seen None Seen /hpf Urine Glucose Normal Normal mg/dL Current Medications Medications (Trade) Dose Ordered Sig/Gualberto Route Start Time Stop Time Status Last Admin Sodium Chloride 500 ml @ 500 mls/hr Q1H ONCE IVB 10/16/24 16:15 10/16/24 17:14 DC 10/16/24 18:24 EXAM: CT Abdomen and Pelvis Without Intravenous Contrast IMPRESSION: 1. Small esophageal hiatal hernia. 2. Hepatomegaly with fatty infiltration. 3. Fecal retention in the colon consistent with constipation. 4. Colonic diverticulosis without acute diverticulitis. At this time the patient's urine test is negative. The CBC is within normal limits except for anemia with a hemoglobin of 11 At this time the patient will be discharged The patient will return to the emergency department's condition worsens. Images Reviewed?: Images reviewed and evaluated by me Time of 1ST Reevaluation: 16:50 Reevaluation 1ST: Unchanged Patient Education/Counseling: Diagnosis, Treatment, Prognosis, Need For Follow Up Family Education/Counseling: No Family Present Departure 1 Departure Time of Disposition: 18:52 Impression: Primary Impression: Musculoskeletal pain Disposition: 01 HOME / SELF CARE / HOMELESS Condition: Fair Discharged With: Self Critical Care Note Critical Care Time?: No Stability Stability form required: No Heart Score Heart Score: Heart Score Response (Comments) Value History N/A 0 EKG N/A 0 Age N/A 0 Risk Factors N/A 0 Troponin N/A 0 Total 0 I personally scribed for JUSTICE VOSS MD ([email or web address]) on 10/16/24 at 16:20. Electronically submitted by Davida Antunez ([email or web address]). I personally scribed for JUSTICE VOSS MD ([email or web address]) on 10/16/24 at 17:14. Electronically submitted by Davida Antunez ([email or web address]). JUSTICE VOSS MD Oct 16, 2024 16:20
[2024-10-16 16:50] LABS: Basophils # (auto) 0.1 10 ^3/uL (0-0.2); Eosinophils % (auto) 3.9 % (0.0-7.0); Monocytes # (auto) 0.8 10 ^3/uL (0-1.3)
[2024-10-16 16:52] LABS: Basophils % (auto) 1.4 % (0.0-2.0); Eosinophils # (auto) 0.4 10 ^3/uL (0-0.8); Hematocrit 34.4 % (36.0-46.0); Lymphocytes # (auto) 3.3 10 ^3/uL (0.4-5.4); Lymphocytes % (auto) 36.3 % (10.0-50.0); Mean Corpuscular Hemoglobin 24.4 pg (28.0-32.0); Mean Corpuscular Hgb Conc. 31.8 g/dL (32.0-36.0); Mean Corpuscular Volume 76.5 fL (80.0-100.0); Monocytes % (auto) 8.7 % (0.0-12.0); Neutrophils # (auto) 4.5 10 ^3/uL (1.6-8.6); Neutrophils % (auto) 49.7 % (37.0-80.0); Platelet Count (auto) 318 10^3/uL (140-450); Red Blood Cells 4.49 10^6/uL (4.0-5.20); Red Cell Distribution Width 17.3 % (11.8-14.3)
[2024-10-16 16:55] LABS: Urine Bacteria None Seen /hpf (None Seen)
[2024-10-16 17:00] LABS: Potassium 3.9 mmol/L (3.5-5.1); Sodium 141 mmol/L (136-145)
[2024-10-16 17:01] LABS: Anion Gap 9 (5-15); Carbon Dioxide 24 mmol/L (20-31)
[2024-10-16 17:02] LABS: Calcium 10.1 mg/dL (8.7-10.4)
[2024-10-16 17:03] LABS: Urine Blood Negative /uL (Negative); Urine Clarity Clear (Clear); Urine Color Colorless (Yellow); Urine Protein, UAD Negative (Negative); Urine Specific Gravity 1.004 (1.001-1.035); Urine Squamous Epithelial Cell FEW /hpf (<5); Urine Urobilinogen Normal (Negative); Urine WBC 2 /HPF (0-5); Urine pH 5.5 (5.0-9.0)
[2024-10-16 17:06] LABS: Chloride 108 mmol/L (98-107)
[2024-10-16 17:07] LABS: BUN/Creatinine Ratio 14.7 (10.0-20.0); Blood Urea Nitrogen 10 mg/dL (9-23); Glucose 85 mg/dL (74-106)
--- NOTE | 2024-10-16 17:07 | DVH ---
EXAM: CT Abdomen and Pelvis Without Intravenous Contrast CLINICAL INDICATION: back pain TECHNIQUE: Axial computed tomography images of the abdomen and pelvis without intravenous contrast. This CT exam was performed using one or more of the following dose reduction techniques: automated exposure control, adjustment of the mA and/or kV according to patient size, and/or use of iterative r econstruction technique. CONTRAST: RADIATION DOSE: CTDIvol = 21.69 mGy, DLP = 1049.34 mGy-cm COMPARISON: CT CT AB PEL WO CON-NO ORAL OR IV on DOS: 07/12/24, CT CT AB PEL WO CON-NO ORAL OR IV on DOS: 07/18/22, CT ABD PELVIS WO CONTRAST on DOS: 10/11/21, CT ABD PELVIS WO CONTRAST on DOS: 02/27/19, CT ABD PELVIS WO CONTRAST on DOS: 11/30/18 FINDINGS: LUNG BASES: Unremarkable. No mass. No consolidation. MEDIASTINUM: Small esophageal hiatal hernia. ABDOMEN: LIVER: Hepatomegaly with fatty infiltration. GALLBLADDER AND BILE DUCTS: Gallbladder is surgically absent. No ductal dilation. PANCREAS: Unremarkable. No ductal dilation. SPLEEN: Unremarkable. No splenomegaly. ADRENALS: Unremarkable. No mass. KIDNEYS AND URETERS: Renal obstruction. STOMACH AND BOWEL: Fecal retention in the colon consistent with constipation. Colonic diverticulos is without acute diverticulitis. No obstruction. PELVIS: APPENDIX: No findings to suggest acute appendicitis. BLADDER: Unremarkable. No stones. REPRODUCTIVE: Unremarkable as visualized. ABDOMEN and PELVIS: INTRAPERITONEAL SPACE: Unremarkable. No free air. No significant fluid collection. BONES/JOINTS: No acute fracture. No dislocation. SOFT TISSUES: Unremarkable. VASCULATURE: Unremarkable. No abdominal aortic aneurysm. LYMPH NODES: Unremarkable. No enlarged lymph nodes. OTHER FINDINGS: . . IMPRESSION: 1. Small esophageal hiatal hernia. 2. Hepatomegaly with fatty infiltration. 3. Fecal retention in the colon consistent with constipation. 4. Colonic diverticulosis without acute diverticulitis.
[2024-10-16] MEDS: SODIUM CHLORIDE 0.9% 500 ML IVB ONE (18:24)
[2024-10-16 19:15] VITALS: BP 148/70; PULSE 93; RESP 18; TEMP 97.6; O2SAT 97
== END 2024-10-16 19:16 | disposition home or self-care (01) ==
LOC: ER 15:39
DX: M79.18 Myalgia, other site (principal); I10 Essential (primary) hypertension; E11.9 Type 2 diabetes mellitus without complications; F41.9 Anxiety disorder, unspecified; D64.9 Anemia, unspecified; J45.909 Unspecified asthma, uncomplicated; K44.9 Diaphragmatic hernia without obstruction or gangrene; K57.30 Diverticulosis of large intestine without perforation or abscess without bleeding; Z79.899 Other long term (current) drug therapy; Z87.440 Personal history of urinary (tract) infections; Z90.49 Acquired absence of other specified parts of digestive tract; Z90.710 Acquired absence of both cervix and uterus; Z88.0 Allergy status to penicillin; Z88.1 Allergy status to other antibiotic agents; Z88.2 Allergy status to sulfonamides
CPT/HCPCS: 36415; 74176; 80048; 81001; 85025; 99284; J7040

== ENCOUNTER 2024-12-04 09:24 | Emergency (ER) | payer BC, MEDICAID ==
[~2024-12-04] VITALS: Ht 152.4 cm; Wt 78.1 kg
--- NOTE | 2024-12-04 10:12 | ED.PDOC ---
Musculoskeletal HPI Comments A 69 year-old female, with a HX of HTN, High Lipids, and DM, presents to the ED with a chief complaint of right leg pain as of X5 days ago. Patient reports right posterior leg pain that radiates down right leg, with worsening pain upon walking, bending, or spontaneously at night. Patient reports taking Tylenol with no associated relieving factors. Currently the pain is rated as moderate. Patient has no further complaints at this time and otherwise denies further associated symptoms of fever, dysuria, hematuria, chills, N/V, abdominal pain, or headache. Denies history of chronic steroid use or history of osteoporosis Denies history of cancer Denies fevers chills night sweats nausea vomiting unintentional weight loss Denies abdominal tearing pain Denies syncope Denies urinary changes or urinary incontinence Denies numbness tingling of the groin her inner thigh Denies previous back procedures or surgeries Chief Complaint: Lower Extremity Time Seen by MD: 10:01 Primary Care Provider: ARTHUR Orta Notes: Medications, Allergies Allergies: Coded Allergies: Amoxicillin (Verified Allergy, Unknown, 07/11/24) Ciprofloxacin (Verified Allergy, Unknown, 01/10/22) Nitrofurantoin (Verified Allergy, Unknown, 07/11/24) Sulfa Antibiotics (Verified Allergy, Unknown, 01/10/22) Home Meds Active Scripts Cephalexin Monohydrate (Cephalexin) 500 Mg Cap, 1 CAP PO QID, #28 CAP Prov:NATY CAMPO MD 07/11/24 Acetaminophen (Tylenol) 325 Mg Cap, 325 MG PO BID PRN for 5 Days, #20 CAP Prov:FILIBERTO GARCIA MD 03/06/24 Hydroxyzine Pamoate (Vistaril) 50 Mg Cap, 1 CAP PO BID, #24 CAP Prov:LENNY WILLIAMSON 05/19/23 Triamcinolone Acetonide (Triamcinolone Acetonide) 0.025 % Cre, 1 APPLIC TOP BID, #45 GRAMS Prov:LENNY WILLIAMSON 05/19/23 Promethazine-Dm (Promethazine Dm 6.25-15 mg/5Ml) 1 Cherelle Cherelle, 5 ML PO TID, #160 ML Prov:LENNY WILLIAMSON 04/27/23 Benzocaine-Menthol (Mouth-Thro (Cepacol Sore Throat) 1 Luanne Luanne, 1 LUANNE MT Q4HPRN PRN, #24 LUANNE as needed for soretrhoat Prov:VANESSA KERR Q MACHINE INKER 04/14/23 Albuterol Sulfate (VENTOLIN MDI) 90 Mcg Ih, 1 PUFF IN Q4HPRN PRN, #1 INH as needed for cough congestion wheezing or shortness ofbreath Prov:VANESSA KERR Q MACHINE INKER 04/14/23 Benzonatate (Benzonatate) 200 Mg Cap, 1 CAP PO TID, #30 CAP as needed for cough Prov:VANESSA KERR Q MACHINE INKER 04/14/23 Prednisone (Prednisone) 20 Mg Tab, 1 TAB PO DAILY for 5 Days, #5 TAB start tomorrow for 4 days Prov:VANESSA KERR Q MACHINE INKER 04/14/23 Azithromycin (Zithromax Z-Abner) 250 Mg Tab, 1 TAB PO DAILY for 5 Days, #6 TAB 2 tabs today then 1 tab start tomorrow for 4 days Prov:VANESSA KERR Q MACHINE INKER 04/14/23 Miconazole Nitrate (Miconazole) 2 % Cre, 2 % EX BID for 14 Days, #15 GM 0 Refills Prov:JAMILA JAIME [facility] 05/02/22 Prednisone (Prednisone) 20 Mg Tab, 20 MG PO DAILY for 3 Days, #3 TAB 0 Refills Prov:JAMILA JAIME [facility] 05/02/22 Promethazine-Dm (Promethazine Dm 6.25-15 mg/5Ml) 1 Cherelle Cherelle, 5 ML PO Q4HPRN PRN, #120 ML 0 Refills Prov:JAMILA JAIME [facility] 05/02/22 Amoxicillin Trihydrate (Amoxicillin) 500 Mg Cap, 2 CAP PO Q8HR for 10 Days, #50 CAP 0 Refills Prov:JAMILA JAIME [facility] 05/02/22 Nitrofurantoin (MACRODANTIN CAPSULE) 50 Mg Cp, 50 MG GT BID, #14 CAP Prov:APOLONIA QUINONEZ MD 01/10/22 Nitrofurantoin Monohydrate Mac (Macrobid) 100 Mg Cap, 100 MG PO BID for 7 Days, #14 CAP Prov:SHANE AGARWAL MD 11/28/21 Reported Medications Travoprost (Travatan Z) 0.004 % Sarmad, 1 DROP EACHEYE QAM, #2.5 ML 2 Refills 02/28/19 Losartan Potassium (Losartan Potassium) 50 Mg Tab, 50 TAB PO DAILY, #90 TAB 5 Refills 03/03/18 Metformin Hydrochloride (Metformin Hcl) 500 Mg Tab, 1000 MG PO BIDWM for 90 Days, MG 03/02/18 Hydrocodone-Acetaminophen (Hendrix 10-325 mg) 1 Tab Tab, 1 TAB PO TID, TAB 01/01/18 Levothyroxine Sodium (Synthroid) 112 Mcg Tab, 1 TAB PO DAILY, #30 TAB 5 Refills 01/01/18 Omeprazole (PRILOSEC) 20 Mg Cap, 20 CAP PO DAILY, #30 CAP 1 Refill 05/06/14 Information Source: Patient Mode of Arrival: Ambulatory Location: Right Extremity Location: Thigh Timing: Days Prehospital treatment: None Severity: Moderate Pain: Moderate Circumstances: Spontaneous Associated signs and symptoms: Thigh pain (Right ) Past Medical History PAST MEDICAL HISTORY: Anxiety, Asthma, DM, Gallstones, GERD, High Lipids, HTN, Thyroid, UTI'S Surgical History: Appendectomy, Cholecystectomy, Hysterectomy, Tonsillectomy [employer] 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 Family History Family History: Reviewed,noncontributory to illness, Family hx of heart francisco j Social History Smoker: Non-Smoker Alcohol: Denies ETOH Use Drugs: Denies Drug Use Lives In: Home Constitutional: denies: chills, diaphoresis, fatigue, fever, malaise, sweats, weakness, others EENTM: denies: blurred vision, double vision, ear bleeding, ear discharge, ear drainage, ear pain, ear ringing, eye pain, eye redness, hearing loss, mouth pain, mouth swelling, nasal discharge, nose bleeding, nose congestion, nose pain, photophobia, tearing, throat pain, throat swelling, voice changes, others Respiratory: denies: cough, hemoptysis, orthopnea, SOB at rest, shortness of breath, SOB with excertion, stridor, wheezing, others Cardiovascular: denies: chest pain, dizzy spells, diaphoresis, Dyspnea on exertion, edema, irregular heart beat, left arm pain, lightheadedness, palpitations, PND, syncope, others Gastrointestinal: denies: abdomen distended, abdominal pain, blood streaked bowels, constipated, diarrhea, dysphagia, difficulty swallowing, hematemesis, melena, nausea, poor appetite, poor fluid intake, rectal bleeding, rectal pain, vomiting, others Genitourinary: denies: abnormal vagina bleeding, burning, dyspareunia, dysuria, flank pain, frequency, hematuria, incontinence, pain, , vagina discharge, urgency, others Neurological: denies: dizziness, fainting, headache, left sided numbness, left sided weakness, numbness, paresthesia, pre-existing deficit, right sided numbness, right sided weakness, seizure, speech problems, tingling, tremors, weakness, others Musculoskeletal: reports: others (Per HPI ); denies: back pain, gout, joint pain, joint swelling, muscle pain, muscle stiffness, neck pain Integumetry: denies: bruises, change in color, change in hair/nails, dryness, laceration, lesions, lumps, rash, wounds, others Allergic/Immunocompromised: denies: Difficulty Healing, Frequent Infections, Hives, Itching, others Hematologic/Lymphatic: denies: anemia, blood clots, easy bleeding, easy bruising, swollen glands, others Endocrine: denies: excessive hunger, excessive sweating, excessive thirst, excessive urination, flushing, intolerance to cold, intolerance to heat, unexplained weight gain, unexplained weight loss, others Psychiatric: denies: anxiety, bipolar disorder, depression, hopeless, panic disorder, schizophrenia, sleepless, suicidal, others All Other Systems: Reviewed and Negative Physical Exam General Appearance: Mild Distress, Normal HEENT: Normal ENT Inspection, Pharynx Normal, TMs Normal Neck: Full Range of Motion, Non-Tender, Normal, Normal Inspection Respiratory: Chest Non-Tender, Lungs Clear, No Accessory Muscle Use, No Respiratory Distress, Normal Breath Sounds Cardiovascular: No Edema, No JVD, No Murmur, No Gallop, Normal Peripheral Pulses, Regular Rate/Rhythm Breast Exam: Deferred Gastrointestinal: No Organomegaly, Non Tender, No Pulsatile Mass, Normal Bowel Sounds, Soft Genitalia: Deferred Pelvic: Deferred Rectal: Deferred Extremities: No calf tenderness, Normal capillary refill, Normal inspection, Normal range of motion, Non-tender, No pedal edema Musculoskeletal : Location: Right Extremity Location: Leg Apperance: Other (No gross abnormality on inspection; Right straight raised leg test POSITIVE, Neurovascular Sensation Intact ) Neurologic: Alert, worm picker II-XII nml as Tested, No Motor Deficits, Normal Affect, Normal Mood, No Sensory Deficits Cerebellar Function: Normal Reflexes: Normal Skin: Dry, Normal Color, Warm Lymphatic: No Adenopathy Was a procedure done? Was a procedure done?: No Differential Diagnosis EXT Differential Diagnosis: Deep Vein Thrombosis, Fracture, Sprain, Contusion, Arthritis X-Ray, Labs, Meds, VS Vital Signs Date Time Temp Pulse Resp B/P (MAP) Pulse Ox O2 Delivery O2 Flow Rate FiO2 12/04/24 11:37 98.0 86 18 136/68 (90) 99 98.0 12/04/24 10:22 96 16 97 Room Air* 0 21 12/04/24 09:45 98.3 80 17 146/63 (90) 98 98.3 Lab Test 12/04/24 09:54 Range/Units Urine Color Yellow Yellow Urine Clarity Turbid H Clear Urine pH 5.5 5.0-9.0 Urine Specific Hunter 1.021 1.001-1.035 Urine Protein Negative Negative Urine Ketones Negative Negative Urine Blood Negative Negative /uL Urine Nitrite Negative Negative Urine Bilirubin Negative Negative Urine Urobilinogen Normal Negative mg/dL Urine Leukocyte Esterase 2+ Negative /uL Urine RBC 3 0 - 4 /hpf Urine Microscopic WBC 4 0-5 /HPF Urine Squamous Epithelial Cells Few <5 /hpf Urine Amorphous Crystals Few None Seen /hpf Urine Bacteria None seen None Seen /hpf Urine Mucus Few None Seen Urine Glucose Normal Normal mg/dL Current Medications Medications (Trade) Dose Ordered Sig/Gualberto Route Start Time Stop Time Status Last Admin Ketorolac Tromethamine (Toradol Injection) 30 mg ONCE ONCE IM 12/04/24 10:00 12/04/24 10:01 DC 12/04/24 10:17 Methylprednisolone Sodium Succinate (Solu Medrol) 125 mg ONCE ONCE IM 12/04/24 10:00 12/04/24 10:01 DC 12/04/24 10:18 X-Ray, Labs, Meds, VS Comment A 69 year-old female presents to the ED with a chief complaint of right thigh pain as of X5 days ago. Patient arrives alert and oriented, ABC's intact, afebrile, vital signs stable, saturating well in room air Urinalysis was ordered to rule out UTI or hematuria. Patient was given: Toradol and methylprednisolone x1. Tolerated medications with no adverse reaction. Given patient's history and exam: Sciatica, cord compression, cauda equina, aortic dissection, Guillain-Fremont syndrome, epidural hematoma/abscess were all considered. Patient not toxic or ill-appearing. Vital signs within acceptable limits. Positive straight leg raise on exam with tenderness to the buttock consistent with sciatica. No vertebral point tenderness noted over the T or L- spine. No paraspinal muscle tenderness noted. No fever or IV drug use the. The differential for an acute vascular, neurologic, malignant, or infectious etiologies is much less likely given his/her presentation. The patient does not warrant a radiological exam at this time. Advised patient to try to take alternating Ibuprofen and Tylenol to help with inflammation of the sciatic nerve and surrounding tissues and should try to do low back stretches but also try to rest and avoid excessive sitting and bending. On reassessment, the patient's symptoms improved, and patient was able to ambul ate without assistive devices. The patient will f/u with PMD to see if his/her symptoms melony. An MRI may need to be ordered if the symptoms worsen or do not improve over time. The patient was counseled in regard to the diagnosis and management of the condition and verbalized understanding of this. The patient understands to return to the ER or seek immediate medical attention if the symptoms worsen or return. On reevaluation, patient had symptomatic improvement. Patient is stable for discharge at this time. External notes reviewed. Test results and diagnostic imaging interpreted. All diagnostic findings, discharge care, education and instructions provided Follow-up with PCP in 2 to 3 days Patient verbalized understanding and agreed to treatment plan Vital signs stable, afebrile, no acute distress noted Patient ambulatory with strong steady gait Advised to return precautions for any new or worsening symptoms, return to ER immediately for re-evaluation Patient is aware that the purpose of this visit was for an acute medical emergency requiring emergent stabilization. Chronic conditions, including malignancies have not been ruled out. Patient is instructed to follow up with PCP as directed and discharge instructions for continued care and workup. If unable to arrange follow-up, patient is to return to the emergency department for reassessment. Patient (parent or legal guardian if applicable) was given verbal and written discharge instructions and acknowledges understanding. Additional MDM Review of External, Non-ED records: External records reviewed. Discussion with independent historian (EMS, family) history obtained from the p atient/parents (if applicable) at bedside Chronic conditions affecting care: None Social determinants of health affecting care: None Consideration of admission (observation or admission): I considered escalation of care to admission for this patient, however given the reassuring workup, the patient is safe for outpatient management. Discussion with the Radiology: No Tests considered but not performed: Prescription medication considered but not given: 12 lead EKG interpretation: Time of 1ST Reevaluation: 10:41 Reevaluation 1ST: Unchanged Time of 2ND Reevaluation: 12:15 Patient Education/Counseling: Diagnosis, Treatment Family Education/Counseling: No Family Present Departure 1 Departure Time of Disposition: 12:17 Impression: Primary Impression: Lumbar radiculopathy Disposition: HOME / SELF CARE / HOMELESS Condition: Stable Discharged With: Self Critical Care Note Critical Care Time?: No Stability Stability form required: No Heart Score Heart Score: Heart Score Response (Comments) Value History N/A 0 EKG N/A 0 Age N/A 0 Risk Factors N/A 0 Troponin N/A 0 Total 0 I personally scribed for MERRY BUTT MACHINE INKER ([email or web address]) on 12/04/24 at 10:12. Electronically submitted by Dimple Millan ([place]). I personally scribed for MERRY BUTT MACHINE INKER ([email or web address]) on 12/04/24 at 10:18. Electronically submitted by Dimple Millan ([place]). I personally scribed for MERRY BUTT MACHINE INKER ([email or web address]) on 12/04/24 at 10:29. Electronically submitted by Dimple Millan ([place]). I personally scribed for MERRY BUTT MACHINE INKER ([email or web address]) on 12/04/24 at 10:51. Electronically submitted by Dimple Millan ([place]). MERRY BUTT MACHINE INKER Dec 04, 2024 10:12
[2024-12-04] MEDS: KETOROLAC TROMETH 30 MG/ML 1ML VIAL IM ONE (10:17)
[2024-12-04] MEDS: methylPREDNISolone SOD SUCC 125 MG/2 ML VL IM ONE (10:18)
[2024-12-04 10:22] VITALS: PULSE 96; RESP 16; O2SAT 97
[2024-12-04 10:32] LABS: Urine Amorphous Crystal FEW /hpf (None Seen); Urine Protein, UAD Negative (Negative)
[2024-12-04 11:37] VITALS: BP 136/68; PULSE 86; RESP 18; TEMP 98; O2SAT 99
== END 2024-12-04 12:26 | disposition home or self-care (01) ==
LOC: ER 09:24
DX: M54.16 Radiculopathy, lumbar region (principal); J45.909 Unspecified asthma, uncomplicated; I10 Essential (primary) hypertension; E11.9 Type 2 diabetes mellitus without complications; F41.9 Anxiety disorder, unspecified; Z79.899 Other long term (current) drug therapy; Z90.49 Acquired absence of other specified parts of digestive tract; Z90.710 Acquired absence of both cervix and uterus; Z88.2 Allergy status to sulfonamides; Z88.1 Allergy status to other antibiotic agents; Z88.0 Allergy status to penicillin
CPT/HCPCS: 81001; 96372; 99284; J1885; J2919

== ENCOUNTER 2024-12-09 14:32 | Emergency (ER) | payer BC, MEDICAID ==
[~2024-12-09] VITALS: Ht 160 cm; Wt 77.8 kg
[2024-12-09 15:28] VITALS: TEMP 98.5
--- NOTE | 2024-12-09 16:10 | ED.PDOC ---
Musculoskeletal HPI Comments 69-year-old female past MHx of diabetes, hyperlipidemia, hypertension, GERD, thyroid disease, frequent UTI, asthma, anxiety presents to the emergency department with a chief complaint of right knee pain onset one week. Patient was seen in this ED one week ago for same symptoms states symptoms have not resolved. Patient noted hips pain radiates from right knee down to the right leg. No other symptoms or modifying factors present at this time. Denies trauma to the knee or recent fall Denies masses around the knee Denies popping/locking/giving out of the knee Denies fever chills night sweats nausea vomiting Chief Complaint: Lower Extremity Time Seen by MD: 15:15 Primary Care Provider: ARTHUR Orta Notes: Medications, Allergies Allergies: Coded Allergies: Amoxicillin (Verified Allergy, Unknown, 07/11/24) Ciprofloxacin (Verified Allergy, Unknown, 01/10/22) Nitrofurantoin (Verified Allergy, Unknown, 07/11/24) Sulfa Antibiotics (Verified Allergy, Unknown, 01/10/22) Home Meds Active Scripts Gabapentin (Gabapentin) 300 Mg Cap, 1 CAP PO DAILY for 10 Days, #14 CAP 0 Refills Prov:MERRY BUTT NP 12/09/24 Cephalexin Monohydrate (Cephalexin) 500 Mg Cap, 1 CAP PO QID, #28 CAP Prov:NATY CAMPO MD 07/11/24 Acetaminophen (Tylenol) 325 Mg Cap, 325 MG PO BID PRN for 5 Days, #20 CAP Prov:FILIBERTO GARCIA MD 03/06/24 Hydroxyzine Pamoate (Vistaril) 50 Mg Cap, 1 CAP PO BID, #24 CAP Prov:LENNY WILLIAMSON 05/19/23 Triamcinolone Acetonide (Triamcinolone Acetonide) 0.025 % Cre, 1 APPLIC TOP BID, #45 GRAMS Prov:LENNY WILLIAMSON 05/19/23 Promethazine-Dm (Promethazine Dm 6.25-15 mg/5Ml) 1 Cherelle Cherelle, 5 ML PO TID, #160 ML Prov:LENNY WILLIAMSON 04/27/23 Benzocaine-Menthol (Mouth-Thro (Cepacol Sore Throat) 1 Gena Gena, 1 GENA MT Q4HPRN PRN, #24 GENA as needed for soretrhoat Prov:VANESSA KERR Q NET C DEVELOPER 04/14/23 Albuterol Sulfate (VENTOLIN MDI) 90 Mcg Ih, 1 PUFF IN Q4HPRN PRN, #1 INH as needed for cough congestion wheezing or shortness ofbreath Prov:VANESSA KERR Q NET C DEVELOPER 04/14/23 Benzonatate (Benzonatate) 200 Mg Cap, 1 CAP PO TID, #30 CAP as needed for cough Prov:VANESSA KERR Q NET C DEVELOPER 04/14/23 Prednisone (Prednisone) 20 Mg Tab, 1 TAB PO DAILY for 5 Days, #5 TAB start tomorrow for 4 days Prov:VANESSA KERR Q NET C DEVELOPER 04/14/23 Azithromycin (Zithromax Z-Abner) 250 Mg Tab, 1 TAB PO DAILY for 5 Days, #6 TAB 2 tabs today then 1 tab start tomorrow for 4 days Prov:VANESSA KERR Q NET C DEVELOPER 04/14/23 Miconazole Nitrate (Miconazole) 2 % Cre, 2 % EX BID for 14 Days, #15 GM 0 Refills Prov:JAMILA JAIME [facility] 05/02/22 Prednisone (Prednisone) 20 Mg Tab, 20 MG PO DAILY for 3 Days, #3 TAB 0 Refills Prov:JAMILA JAIME [facility] 05/02/22 Promethazine-Dm (Promethazine Dm 6.25-15 mg/5Ml) 1 Cherelle Cherelle, 5 ML PO Q4HPRN PRN, #120 ML 0 Refills Prov:JAMILA JAIME BLINDSTITCH MACHINE OPERATOR 05/02/22 Amoxicillin Trihydrate (Amoxicillin) 500 Mg Cap, 2 CAP PO Q8HR for 10 Days, #50 CAP 0 Refills Prov:JAMILA JAIME [facility] 05/02/22 Nitrofurantoin (MACRODANTIN CAPSULE) 50 Mg Cp, 50 MG GT BID, #14 CAP Prov:APOLONIA QUINONEZ MD 01/10/22 Nitrofurantoin Monohydrate Mac (Macrobid) 100 Mg Cap, 100 MG PO BID for 7 Days, #14 CAP Prov:SHANE AGARWAL MD 11/28/21 Reported Medications Travoprost (Travatan Z) 0.004 % Sarmad, 1 DROP EACHEYE QAM, #2.5 ML 2 Refills 02/28/19 Losartan Potassium (Losartan Potassium) 50 Mg Tab, 50 TAB PO DAILY, #90 TAB 5 Refills 03/03/18 Metformin Hydrochloride (Metformin Hcl) 500 Mg Tab, 1000 MG PO BIDWM for 90 Days, MG 03/02/18 Hydrocodone-Acetaminophen ([place] 10-325 mg) 1 Tab Tab, 1 TAB PO TID, TAB 01/01/18 Levothyroxine Sodium (Synthroid) 112 Mcg Tab, 1 TAB PO DAILY, #30 TAB 5 Refills 01/01/18 Omeprazole (PRILOSEC) 20 Mg Cap, 20 CAP PO DAILY, #30 CAP 1 Refill 05/06/14 Information Source: Patient Mode of Arrival: Ambulatory Location: Right Extremity Location: Knee Timing: Weeks Prehospital treatment: Pain Meds Severity: Moderate Able to Move Extremity: Yes Bear Weight: Limited Pain: Moderate Mechanism: Spontaneous Circumstances: Spontaneous Onset of Symptoms: Spontaneous Symptoms: Pain DVT Risk Factors: NONE Associated signs and symptoms: Knee pain Past Medical History PAST MEDICAL HISTORY: Anxiety, Asthma, DM, Gallstones, GERD, High Lipids, HTN, Thyroid, UTI'S Surgical History: Appendectomy, Cholecystectomy, Hysterectomy, Tonsillectomy OPTOELECTRONICS ENGINEER History: Denies all OPTOELECTRONICS ENGINEER Hx Family History Family History: Reviewed,noncontributory to illness, Family hx of heart francsico j Social History Smoker: Non-Smoker Alcohol: Denies ETOH Use Drugs: Denies Drug Use Lives In: Home All Other Systems: Reviewed and Negative (as per HPI) Physical Exam General Appearance: Normal HEENT: Normal ENT Inspection, Pharynx Normal, TMs Normal Neck: Full Range of Motion, Non-Tender, Normal, Normal Inspection Respiratory: Chest Non-Tender, Lungs Clear, No Accessory Muscle Use, No Respiratory Distress, Normal Breath Sounds Cardiovascular: No Edema, No JVD, No Murmur, No Gallop, Normal Peripheral Pulses, Regular Rate/Rhythm Breast Exam: Deferred Gastrointestinal: No Organomegaly, Non Tender, No Pulsatile Mass, Normal Bowel Sounds, Soft Genitalia: Deferred Pelvic: Deferred Rectal: Deferred Extremities: No calf tenderness, Normal capillary refill, Non-tender, No pedal edema Musculoskeletal : Location: Right Extremity Location: Knee Apperance: Normal Neurologic: Alert, ventilating engineer II-XII nml as Tested, No Motor Deficits, Normal Affect, Normal Mood, No Sensory Deficits Cerebellar Function: Normal Reflexes: Normal Skin: Dry, Normal Color, Warm Lymphatic: No Adenopathy Was a procedure done? Was a procedure done?: No Differential Diagnosis EXT Differential Diagnosis: Sprain, Other X-Ray, Labs, Meds, VS Vital Signs Date Time Temp Pulse Resp B/P (MAP) Pulse Ox O2 Delivery O2 Flow Rate FiO2 12/09/24 17:19 98 18 129/65 (86) 100 12/09/24 17:19 98 18 100 Room Air 12/09/24 15:28 98.5 89 16 141/40 (73) 100 98.5 Current Medications Medications (Trade) Dose Ordered Sig/Gualberto Route Start Time Stop Time Status Last Admin Acetaminophen/ Hydrocodone Bitart ([place] 5/325MG Tab) 1 tab ONCE ONCE PO 12/09/24 15:30 12/09/24 15:32 DC 12/09/24 17:06 Methylprednisolone Sodium Succinate (Solu Medrol) 125 mg ONCE ONCE IM 12/09/24 15:30 12/09/24 15:32 DC 12/09/24 17:06 [place] [id number] Ph: [phone] DIAGNOSTIC IMAGING Diagnostic Imaging Report : [id number] Signed PATIENT: JASON OLSENACCT: [id number] UNIT: [id number] : 1955 LOC: ER ROOM / BED: / AGE / SEX: 69 / F ADM STATUS: REG ER SERVICE [id number] ORDERING PHYSICIAN: MERRY BUTT NP PROCEDURE(s): RLDVT - RT Lower DVT REASON: r/o dvt ORDER NUMBER(s): [id number], ACCESSION NUMBER(s): [id number] Right lower extremity venous Doppler INDICATION: r/o dvt TECHNIQUE: Duplex venous sonography was performed with real-time and flow sensitive images submitted for evaluation. FINDINGS: Normal phasic venous flow. Veins are fully compressible. No filling defects. IMPRESSION: 1. No evidence of deep vein thrombosis. ATED BY: MUKUND SANDOVAL MD DICTATED DATE/TIME: 12/09/24 161 SIGNED BY: MUKUND SANDOVAL MD SIGNED DATE/TIME: 12/09/24 161 CC: X-Ray, Labs, Meds, VS Comment 69-year-old female past MHx of diabetes, hyperlipidemia, hypertension, GERD, thyroid disease, frequent UTI, asthma, anxiety presents to the emergency department with a chief complaint of right knee pain onset one week. Patient arrives alert and oriented, ABC's intact, afebrile, vital signs stable, saturating well in room air Diagnostic imaging ordered by me and results interpreted by radiology : RT Lower DVT: IMPRESSION: 1. No evidence of deep vein thrombosis. Patient was given: Solu-Medrol 125 mg IM [place] 5/325 mg p.o.. Tolerated medications with no adverse reaction. On reevaluation, patient had symptomatic improvement. Patient is stable for discharge at this time. External notes reviewed. Test results and diagnostic imaging interpreted. All diagnostic findings, discharge care, education and instructions provided Follow-up with PCP in 2 to 3 days Patient verbalized understanding and agreed to treatment plan Vital signs stable, afebrile, no acute distress noted Patient ambulatory with strong steady gait Advised to return precautions for any new or worsening symptoms, return to ER immediately for re-evaluation Patient is aware that the purpose of this visit was for an acute medical emergency requiring emergent stabilization. Chronic conditions, including malignancies have not been ruled out. Patient is instructed to follow up with PCP as directed and discharge instructions for continued care and workup. If unable to arrange follow-up, patient is to return to the emergency department for reassessment. Patient (parent or legal guardian if applicable) was given verbal and written discharge instructions and acknowledges understanding. Additional MDM Review of External, Non-ED records: External records reviewed. Discussion with independent historian (EMS, family) history obtained from the patient/parents (if applicable) at bedside Chronic conditions affecting care: None Social determinants of health affecting care: None I considered escalation of care to admission for this patient, however given the reassuring workup, the patient is safe for outpatient management. Time of 1ST Reevaluation: 15:45 Reevaluation 1ST: Improved Patient Education/Counseling: Diagnosis, Treatment Family Education/Counseling: No Family Present Departure 1 Departure Time of Disposition: 16:31 Impression: Primary Impression: Lumbar radiculopathy Disposition: 01 HOME / SELF CARE / HOMELESS Condition: Fair e-Prescriptions Gabapentin (Gabapentin) 300 Mg Cap 1 CAP PO DAILY for 10 Days, #14 CAP 0 Refills Prov: MERRY BUTT NP 12/09/24 Discharged With: Self Critical Care Note Critical Care Time?: No Stability Stability form required: No Heart Score Heart Score: Heart Score Response (Comments) Value History N/A 0 EKG N/A 0 Age N/A 0 Risk Factors N/A 0 Troponin N/A 0 Total 0 I personally scribed for MERRY BUTT NET C DEVELOPER ([email or web address]) on 12/09/24 at 16:10. Electronically submitted by Shyanne Lane ([email or web address]). I personally scribed for MERRY BUTT NET C DEVELOPER ([email or web address]) on 12/09/24 at 16:30. Electronically submitted by Shyanne Lane ([email or web address]). MERRY BUTT NP Dec 09, 2024 16:10
--- NOTE | 2024-12-09 16:15 | DVH ---
Right lower extremity venous Doppler INDICATION: r/o dvt TECHNIQUE: Duplex venous sonography was performed with real-time and flow sensitive images submitted for evaluation. FINDINGS: Normal phasic venous flow. Veins are fully compressible. No filling defects. IMPRESSION: 1. No evidence of deep vein thrombosis.
[2024-12-09] MEDS ORDERED: GABA-1250 PO (16:34)
[2024-12-09] MEDS: methylPREDNISolone SOD SUCC 125 MG/2 ML VL IM ONE (17:06)
[2024-12-09] MEDS: HYDROcodone-ACET 5/325MG TAB PO ONE (17:06)
[2024-12-09 17:19] VITALS: BP 129/65; PULSE 98; RESP 18; O2SAT 100
== END 2024-12-09 17:22 | disposition home or self-care (01) ==
LOC: ER 14:32
DX: M54.16 Radiculopathy, lumbar region (principal); M25.551 Pain in right hip; M25.552 Pain in left hip; M25.561 Pain in right knee; I10 Essential (primary) hypertension; E11.9 Type 2 diabetes mellitus without complications; E78.5 Hyperlipidemia, unspecified; F41.9 Anxiety disorder, unspecified; J45.909 Unspecified asthma, uncomplicated; Z79.899 Other long term (current) drug therapy; Z87.440 Personal history of urinary (tract) infections; Z90.49 Acquired absence of other specified parts of digestive tract; Z90.710 Acquired absence of both cervix and uterus; Z88.0 Allergy status to penicillin; Z88.1 Allergy status to other antibiotic agents; Z88.2 Allergy status to sulfonamides
CPT/HCPCS: 93971; 96372; 99285; J2919

== ENCOUNTER 2025-04-17 12:18 | Emergency (ER) | payer BC, MEDICAID ==
[~2025-04-17] VITALS: Ht 154.9 cm; Wt 75.6 kg
[~2025-04-17 12:18] MED LIST changes: +GABA-1250 PO
--- NOTE | 2025-04-17 13:00 | DVH ---
XY CHEST TWO VIEWS ROUTINE CLINICAL HISTORY: COUGH COMPARISON: XY CHEST TWO VIEWS ROUTINE on DOS: 03/05/24, XY CHEST TWO VIEWS ROUTINE on DOS: 04/27/23, XY CHEST XRAY 1 VIEW on DOS: 04/15/23, XY CHEST XRAY 1 VIEW on DOS: 04/13/23, CHEST PORTABLE on DOS: 07/31/18 TECHNIQUE: Frontal and lateral view of the chest was obtained FINDINGS: Lines and Tubes: None Lungs: No focal consolidation. Pleura: No effusion. No pneumothorax. Cardiomediastinal contours: Unremarkable Bones: No acute osseous abnormality. IMPRESSION: No acute cardiopulmonary disease.
[2025-04-17 13:15] VITALS: BP 158/82; PULSE 102; RESP 18; TEMP 98.2; O2SAT 97
[2025-04-17] MEDS ORDERED: AUG875T PO (13:26)
--- NOTE | 2025-04-17 13:27 | ED.PDOC ---
SOB-HPI HPI Comments A 69 YEAR OLD FEMALE PRESENTS TO THE ED WITH COMPLAINT OF COUGH AND BILATERAL EAR PAIN. PATIENT STATES SHE HAS BEEN EXPERIENCING A COUGH, CONGESTION, AND BILATERAL EAR PAIN FOR THE PAST 5 DAYS. PATIENT REPORTS SHE WENT TO AN URGENT CARE 3 DAYS AGO WHERE SHE WAS ONLY GIVEN COUGH MEDICINE, BUT NOTES THERE HAS BEEN NO IMPROVEMENT IN HER SYMPTOMS. PATIENT DENIES FEVER, CHILLS, SHORTNESS OF BREATH, CHEST PAIN, ABDOMINAL PAIN, NAUSEA, VOMITING, HEADACHE, OR OTHER COMPLAINTS. NO OTHER SYMPTOMS OR MODIFYING FACTORS AT THIS TIME. PATIENT IS ALERT, ORIENTED X 4, AND HAS STEADY GAIT. Chief Complaint: Cough Time Seen by MD: 12:27 Primary Care Provider: ARTHUR Reviewed notes: Nurses Notes, Medications, Allergies Information Source: Patient Mode of Arrival: Ambulatory Severity: Moderate Timing: Days Duration: Since onset, Days Context: Spontaneous Onset PE Risk Factors: None History of: Recent URI Prehospital treatment: None Modifying Factors: Nothing Associated Signs and Symptoms: Cough, Nasal Congestion If cough with SOB: Productive Past Medical History PAST MEDICAL HISTORY: Anxiety, Asthma, DM, Gallstones, GERD, High Lipids, HTN, Thyroid, UTI'S Surgical History: Appendectomy, Cholecystectomy, Hysterectomy, Tonsillectomy CHILD LIFE SPECIALIST History: Denies all CHILD LIFE SPECIALIST Hx Family History Family History: Reviewed,noncontributory to illness, Family hx of heart francisco j Social History Smoker: Non-Smoker Alcohol: Denies ETOH Use Drugs: Denies Drug Use Lives In: Home Constitutional: denies: chills, diaphoresis, fatigue, fever, malaise, sweats, weakness, others EENTM: reports: ear pain, nose congestion, throat pain; denies: blurred vision, double vision, ear bleeding, ear discharge, ear drainage, ear ringing, eye pain, eye redness, hearing loss, mouth pain, mouth swelling, nasal discharge, nose bleeding, nose pain, photophobia, tearing, throat swelling, voice changes, others Respiratory: reports: cough; denies: hemoptysis, orthopnea, SOB at rest, s hortness of breath, SOB with excertion, stridor, wheezing, others Cardiovascular: denies: chest pain, dizzy spells, diaphoresis, Dyspnea on exertion, edema, irregular heart beat, left arm pain, lightheadedness, palpitations, PND, syncope, others Gastrointestinal: denies: abdomen distended, abdominal pain, blood streaked bowels, constipated, diarrhea, dysphagia, difficulty swallowing, hematemesis, melena, nausea, poor appetite, poor fluid intake, rectal bleeding, rectal pain, vomiting, others Genitourinary: denies: abnormal vagina bleeding, burning, dyspareunia, dysuria, flank pain, frequency, hematuria, incontinence, pain, , vagina discharge, urgency, others Neurological: denies: dizziness, fainting, headache, left sided numbness, left sided weakness, numbness, paresthesia, pre-existing deficit, right sided numbness, right sided weakness, seizure, speech problems, tingling, tremors, weakness, others Musculoskeletal: denies: back pain, gout, joint pain, joint swelling, muscle pain, muscle stiffness, neck pain, others Integumetry: denies: bruises, change in color, change in hair/nails, dryness, laceration, lesions, lumps, rash, wounds, others Allergic/Immunocompromised: denies: Difficulty Healing, Frequent Infections, Hives, Itching, others Hematologic/Lymphatic: denies: anemia, blood clots, easy bleeding, easy bruising, swollen glands, others Endocrine: denies: excessive hunger, excessive sweating, excessive thirst, excessive urination, flushing, intolerance to cold, intolerance to heat, unexplained weight gain, unexplained weight loss, others Psychiatric: denies: anxiety, bipolar disorder, depression, hopeless, panic disorder, schizophrenia, sleepless, suicidal, others All Other Systems: Reviewed and Negative Physical Exam General Appearance: No Apparent Distress, Normal HEENT: PERRL/EOMI, Pharyngeal Erythema, TM Abnormal (L), TM Abnormal (R) Neck: Full Range of Motion, Non-Tender, Normal, Normal Inspection Respiratory: Chest Non-Tender, Inspiration, No Accessory Muscle Use, No Respiratory Distress, Rhonchi Cardiovascular: No Edema, No JVD, No Murmur, No Gallop, Normal Peripheral Pulses, Regular Rate/Rhythm Breast Exam: Deferred Gastrointestinal: No Organomegaly, Non Tender, No Pulsatile Mass, Normal Bowel Sounds, Soft Genitalia: Deferred Pelvic: Deferred Rectal: Deferred Extremities: No calf tenderness, Normal capillary refill, Normal inspection, Normal range of motion, Non-tender, No pedal edema Musculoskeletal : Apperance: Normal Neurologic: Alert, locomotive engineer diesel II-XII nml as Tested, No Motor Deficits, Normal Affect, Normal Mood, No Sensory Deficits Cerebellar Function: Normal Reflexes: Normal Skin: Dry, Normal Color, Warm Peripheral Pulses: 2+ carotid (R), 2+ carotid (L) Lymphatic: No Adenopathy Was a procedure done? Was a procedure done?: No Differential Dx Differential Diagnosis: Bronchitis, Pneumonia, Sinusitis, Allergic Rhinitis, Otitis Media, Pharyngitis, URI X-Ray, Labs, Meds, VS Vital Signs Date Time Temp Pulse Resp B/P (MAP) Pulse Ox O2 Delivery O2 Flow Rate FiO2 04/17/25 13:15 102 18 97 Room Air 04/17/25 13:15 98.2 102 18 158/82 (107) 97 98.2 04/17/25 12:20 97.2 102 18 158/82 97 97.2 XY CHEST TWO VIEWS ROUTINE CLINICAL HISTORY: COUGH COMPARISON: XY CHEST TWO VIEWS ROUTINE on DOS: 03/05/24, XY CHEST TWO VIEWS ROUTINE on DOS: 04/27/23, XY CHEST XRAY 1 VIEW on DOS: 04/15/23, XY CHEST XRAY 1 VIEW on DOS: 04/13/23, CHEST PORTABLE on DOS: 07/31/18 TECHNIQUE: Frontal and lateral view of the chest was obtained FINDINGS: Lines and Tubes: None Lungs: No focal consolidation. Pleura: No effusion. No pneumothorax. Cardiomediastinal contours: Unremarkable Bones: No acute osseous abnormality. IMPRESSION: No acute cardiopulmonary disease. ATED BY: JARED ROSALES MD DICTATED DATE/TIME: 04/17/251257 SIGNED BY: JARED ROSALES MD SIGNED DATE/TIME: 04/17/251257 CC: X-Ray, Labs, Meds, VS Comment EXTERNAL MEDICAL RECORDS REVIEWED: [NONE] INDEPENDENT HISTORIANS: [NONE] SOCIAL DETERMINANTS OF HEALTH: [NONE] LABS ORDERED: NONE REVIEWED AND INTERPRETED RESULTS: NONE IMAGING ORDERED: XR CHEST TREATMENTS ORDERED: NONE PROCEDURES PERFORMED: NONE CRITICAL CARE TIME: NONE I HAVE DISCUSSED THE PATIENT WITH THE ATTENDING PHYSICIAN DR. VOSS AND HE AGREES WITH THE PATIENT'S PLAN OF CARE AND DISPOSITION. BASED ON HISTORY OF PRESENT ILLNESS, AND PHYSICAL EXAM, PATIENT WILL BE DISCHARGED HOME. DISCUSSED PLAN FOR DISCHARGE HOME WITH RX [AUGMENTIN AND PHENERGAN DM]. MEDICATION WARNINGS GIVEN. PER PT, SHE IS NOR ALLERGIC AMOXICILLIN. SHARED DECISION MAKING: PATIENT INSTRUCTED TO FOLLOW UP WITH PRIMARY CARE PROVIDER IN 1-2 DAYS FOR RE-EVALUATION OF SYMPTOMS. PATIENT VERBALIZES UNDERSTANDING TO RETURN TO ED FOR NEW OR WORSENING SYMPTOMS OR IF FOLLOW UP WITH PCP CANNOT BE OBTAINED. PATIENT FEELS COMFORTABLE GOING HOME AT THIS TIME. ALL QUESTIONS ADDRESSED AT TIME OF DISCHARGE. Images Reviewed?: Images reviewed and evaluated by me Time of 1ST Reevaluation: 13:30 Reevaluation 1ST: Improved Patient Education/Counseling: Diagnosis, Treatment, Need For Follow Up Family Education/Counseling: Diagnosis, Treatment, Need For Follow Up Medical Screening: No EMC Exist At This Time SEPSIS Sepsis Screen Date sepsis recognized/suspect: Apr 17, 2025 Time Sepsis recognized/suspect: 1222 Recent Procedure: No On Antibiotic Therapy: No Respiratory Rate >20: No Heart Rate >90: Yes Temp<36 C (96.8 F) or >38.3 C: No SBP <90 or MAP <65 mmHG: No New Acute Mental Status Change: No Is the patient on CPAP, BIPAP,: No Physician Orders Chest Two Views Routine (04/17/25 12:28) Vital Signs Date Time Temp Pulse Resp B/P (MAP) Pulse Ox O2 Delivery O2 Flow Rate FiO2 04/17/25 13:15 102 18 97 Room Air 04/17/25 13:15 98.2 102 18 158/82 (107) 97 98.2 04/17/25 12:20 97.2 102 18 158/82 97 97.2 Departure 1 Departure Time of Disposition: 13:30 Impression: Primary Impression: Acute bronchitis Qualified Codes: J20.9 - Acute bronchitis, unspecified Additional Impression: Otitis media of both ears Qualified Codes: H65.113 - Acute and subacute allergic otitis media (mucoid) (sanguinous) (serous), bilateral Disposition: 01 HOME / SELF CARE / HOMELESS Condition: Stable Additional Instructions: FOLLOW-UP WITH PCP IN 1 TO 2 DAYS. TAKE MEDICATIONS PRESCRIBED. RETURN TO ED FOR ANY NEW OR WORSENING SYMPTOMS. e-Prescriptions Benzonatate (Benzonatate) 200 Mg Cap 1 CAP PO TID, #30 CAP Prov: LENNY WILLIAMSON 04/17/25 Amoxicillin & Pot Clavulanate (AUGMENTIN TABLET) 875 Mg Tb 875 MG PO BID, #20 TAB Prov: LENNY WILLIAMSON 04/17/25 Discharged With: Self Critical Care Note Critical Care Time?: No Stability Stability form required: No Heart Score Heart Score: Heart Score Response (Comments) Value History N/A 0 EKG N/A 0 Age N/A 0 Risk Factors N/A 0 Troponin N/A 0 Total 0 I personally scribed for LENNY WILLIAMSON ([email or web address]) on 04/17/25 at 13:26. Electronically submitted by Bernard Carpenter ([email or web address]). LENNY WILLIAMSON Apr 17, 2025 13:26
[2025-04-17] MEDS ORDERED: BENZ200C64 PO (13:32)
== END 2025-04-17 13:32 | disposition home or self-care (01) ==
LOC: ER 12:18
DX: J20.9 Acute bronchitis, unspecified (principal); H65.113 Acute and subacute allergic otitis media (mucoid) (sanguinous) (serous), bilateral; E11.9 Type 2 diabetes mellitus without complications; I10 Essential (primary) hypertension; J45.909 Unspecified asthma, uncomplicated; Z87.440 Personal history of urinary (tract) infections; Z90.49 Acquired absence of other specified parts of digestive tract; Z90.710 Acquired absence of both cervix and uterus
CPT/HCPCS: 71046

== ENCOUNTER 2025-04-22 16:17 | Emergency (ER) | payer BC, MEDICAID ==
[~2025-04-22] VITALS: Ht 154.9 cm; Wt 77.0 kg
[~2025-04-22 16:17] MED LIST changes: +AUG875T PO
[2025-04-22] MEDS: IPRATROPIUM BROM 0.5 MG/2.5ML INH SOL NEB ONE (17:28)
[2025-04-22] MEDS: ALBUTEROL SULF 2.5 MG/0.5ML(0.5%) NEB SOLN NEB ONE (17:28)
--- NOTE | 2025-04-22 17:58 | DVH ---
CLINICAL HISTORY: SOB. TECHNIQUE: Frontal and lateral views view of the chest were obtained. COMPARISON: XY CHEST TWO VIEWS ROUTINE on DOS: 04/17/25. FINDINGS: LUNGS: Clear. PLEURA: No pneumothorax or pleural effusion. MEDIASTINUM/OTHER: Normal heart size and mediastinal contours. Trachea is midline. BONES: No acute osseous abnormality. Mild degenerative changes of the thoracic spine. Osseous structures demineralized. IMPRESSION: No acute cardiopulmonary process.
[2025-04-22 18:22] LABS: Chloride 105 mmol/L (98-107); Potassium 3.8 mmol/L (3.5-5.1); Sodium 140 mmol/L (136-145)
[2025-04-22 18:23] LABS: Hematocrit 37.9 % (36.0-46.0); Hemoglobin 11.4 g/dL (12.2-16.2); Mean Corpuscular Hemoglobin 24.2 pg (28.0-32.0); Mean Corpuscular Volume 80.5 fL (80.0-100.0); Nucleated Red Blood Cells % 0.1 %
[2025-04-22 18:24] LABS: Anion Gap 12 (5-15); Calcium 9.6 mg/dL (8.7-10.4); Carbon Dioxide 23 mmol/L (20-31)
[2025-04-22 18:29] LABS: BUN/Creatinine Ratio 11.6 (10.0-20.0); Glucose 81 mg/dL (74-106)
[2025-04-22 18:30] LABS: Blood Urea Nitrogen 8 mg/dL (9-23)
[2025-04-22] MEDS: methylPREDNISolone SOD SUCC 125 MG/2 ML VL IM ONE (18:51)
[2025-04-22] MEDS ORDERED: PRED20TA2 PO (18:54)
--- NOTE | 2025-04-22 18:54 | ED.PDOC ---
SOB-HPI HPI Comments 69-year-old female presents to ER with complaints of cough x2 weeks. Patient with past medical history significant for COPD and asthma reports that she has been experiencing cough and congestion x2 weeks. States that she was seen and evaluated for her symptoms in ER here five days ago, diagnosed with bronchitis at that time and has been taking prescribed Augmentin along with Tessalon Perles. Notes that her cough has improved but notes that her congestion has not prompting her to come back to ER for further evaluation. She denies any pain and presents to ER afebrile, with steady gait, in no distress with pulse ox 98% on RA. Denies fever, body aches, chills, night sweats, shortness of breath, chest pain, hemoptysis, known exposure to sick contacts, fatigue or any further symptoms/complaints Chief Complaint: Cough Time Seen by MD: 18:15 Primary Care Provider: ARTHUR Reviewed notes: Nurses Notes, Medications, Allergies Information Source: Patient Mode of Arrival: Ambulatory Past Medical History PAST MEDICAL HISTORY: Anxiety, Asthma, COPD, DM, Gallstones, GERD, High Lipids, HTN, Thyroid, UTI'S Surgical History: Appendectomy, Cholecystectomy, Hysterectomy, Tonsillectomy TYRE FITTER History: Denies all TYRE FITTER Hx Family History Family History: Unknown, Family hx of heart francisco j Social History Smoker: Non-Smoker Alcohol: Denies ETOH Use Drugs: Denies Drug Use Lives In: Home Constitutional: denies: chills, diaphoresis, fatigue, fever, malaise, sweats, weakness, others EENTM: reports: others (As stated in HPI) Respiratory: reports: others (As stated in HPI) Cardiovascular: denies: chest pain, dizzy spells, diaphoresis, Dyspnea on exertion, edema, irregular heart beat, left arm pain, lightheadedness, palpitations, PND, syncope, others Gastrointestinal: denies: abdomen distended, abdominal pain, blood streaked bowels, constipated, diarrhea, dysphagia, difficulty swallowing, hematemesis, melena, nausea, poor appetite, poor fluid intake, rectal bleeding, rectal pain, vomiting, others Genitourinary: denies: abnormal vagina bleeding, burning, dyspareunia, dysuria, flank pain, frequency, hematuria, incontinence, pain, , vagina discharge, urgency, others Neurological: denies: dizziness, fainting, headache, left sided numbness, left sided weakness, numbness, paresthesia, pre-existing deficit, right sided numbness, right sided weakness, seizure, speech problems, tingling, tremors, weakness, others Musculoskeletal: denies: back pain, gout, joint pain, joint swelling, muscle pain, muscle stiffness, neck pain, others Integumetry: denies: bruises, change in color, change in hair/nails, dryness, laceration, lesions, lumps, rash, wounds, others Allergic/Immunocompromised: denies: Difficulty Healing, Frequent Infections, Hives, Itching, others Hematologic/Lymphatic: denies: anemia, blood clots, easy bleeding, easy bruising, swollen glands, others Endocrine: denies: excessive hunger, excessive sweating, excessive thirst, excessive urination, flushing, intolerance to cold, intolerance to heat, unexplained weight gain, unexplained weight loss, others Psychiatric: denies: anxiety, bipolar disorder, depression, hopeless, panic disorder, schizophrenia, sleepless, suicidal, others Physical Exam General Appearance: No Apparent Distress, Obese HEENT: Normal ENT Inspection, PERRL/EOMI, Pharynx Normal, TMs Normal Neck: Full Range of Motion, Non-Tender, Normal Respiratory: Chest Non-Tender, Lungs Clear, No Accessory Muscle Use, No Respiratory Distress, Normal Breath Sounds Cardiovascular: No Murmur, No Gallop, Regular Rate/Rhythm Breast Exam: Deferred Gastrointestinal: NOT DONE Genitalia: Deferred Pelvic: Deferred Rectal: Deferred Extremities: Normal capillary refill, Normal range of motion Neurologic: Alert, slasher runner II-XII nml as Tested, No Motor Deficits, Normal Affect, Normal Mood, No Sensory Deficits Cerebellar Function: Normal Reflexes: Normal Skin: Dry, Normal Color, Warm Peripheral Pulses: 2+ carotid (R), 2+ carotid (L), 2+ Radial (R), 2+ Radial (L), 2+ Brachial (R), 2+ Brachial (L) Lymphatic: No Adenopathy Was a procedure done? Was a procedure done?: No Sedation Sedation?: No Differential Dx Differential Diagnosis: Pneumonia, Pulmonary Embolism, Respiratory Distress, Pharyngitis X-Ray, Labs, Meds, VS Vital Signs Date Time Temp Pulse Resp B/P (MAP) Pulse Ox O2 Delivery O2 Flow Rate FiO2 04/22/25 17:28 22 22 Room Air* 0 21 04/22/25 16:20 98.2 98 18 178/74 98 98.2 Lab Test 04/22/25 17:58 Range/Units White Blood Count 7.6 4.4-10.8 10^3/uL Red Blood Count 4.71 4.0-5.20 10^6/uL Hemoglobin 11.4 L 12.2-16.2 g/dL Hematocrit 37.9 36.0-46.0 % Mean Corpuscular Volume 80.5 80.0-100.0 fL Mean Corpuscular Hemoglobin 24.2 L 28.0-32.0 pg Mean Corpuscular Hemoglobin Concent 30.1 L 32.0-36.0 g/dL Red Cell Distribution Width 18.0 H 11.8-14.3 % Platelet Count 283 140-450 10^3/uL Mean Platelet Volume 8.6 6.9-10.8 fL Neutrophils (%) (Auto) 48.7 37.0-80.0 % Lymphocytes (%) (Auto) 39.8 10.0-50.0 % Monocytes (%) (Auto) 6.2 0.0-12.0 % Eosinophils (%) (Auto) 4.2 0.0-7.0 % Basophils (%) (Auto) 1.1 0.0-2.0 % Neutrophils # (Auto) 3.7 1.6-8.6 10 ^3/uL Lymphocytes # (Auto) 3.0 0.4-5.4 10 ^3/uL Monocytes # (Auto) 0.5 0-1.3 10 ^3/uL Eosinophils # (Auto) 0.3 0-0.8 10 ^3/uL Basophils # (Auto) 0.1 0-0.2 10 ^3/uL Nucleated Red Blood Cells 0.1 % Sodium Level 140 136-145 mmol/L Potassium Level 3.8 3.5-5.1 mmol/L Chloride Level 105 98-107 mmol/L Carbon Dioxide Level 23 20-31 mmol/L Anion Gap 12 5-15 Blood Urea Nitrogen 8 L 9-23 mg/dL Creatinine 0.69 0.550-1.02 mg/dL Glomerular Filtration Rate Calc 93 >90 mL/min BUN/Creatinine Ratio 11.6 10.0-20.0 Serum Glucose 81 74-106 mg/dL Calcium Level 9.6 8.7-10.4 mg/dL B-Type Natriuretic Peptide 19.69 0-100 pg/mL Current Medications Medications (Trade) Dose Ordered Sig/Gualberto Route Start Time Stop Time Status Last Admin Albuterol (Ventolin Medneb) 5 mg ONCE ONCE NEB 04/22/25 17:15 04/22/25 17:16 DC 04/22/25 17:28 Ipratropium [place] (Atrovent Medneb) 0.5 mg ONCE ONCE NEB 04/22/25 17:15 04/22/25 17:16 DC 04/22/25 17:28 Methylprednisolone Sodium Succinate (Solu Medrol) 125 mg ONCE ONCE IM 04/22/25 17:15 04/22/25 17:16 DC 04/22/25 18:51 PATIENT: JASON OLSEN GACCT: [id number]: [id number] : 1955 LOC: ER ROOM / BED: / AGE / SEX: 69 / F ADM STATUS: REG ER SERVICE 171 ORDERING PHYSICIAN: MERRY BUTT [employer] SERVICE CONSULTANT PROCEDURE(s): CXR2 - CHEST TWO VIEWS ROUTINE REASON: SOB ORDER NUMBER(s): [id number], ACCESSION NUMBER(s): [id number] CLINICAL HISTORY: SOB. TECHNIQUE: Frontal and lateral views view of the chest were obtained. COMPARISON: XY CHEST TWO VIEWS ROUTINE on DOS: 04/17/25. FINDINGS: LUNGS: Clear. PLEURA: No pneumothorax or pleural effusion. MEDIASTINUM/OTHER: Normal heart size and mediastinal contours. Trachea is midline. BONES: No acute osseous abnormality. Mild degenerative changes of the thoracic spine. Osseous structures demineralized. IMPRESSION: No acute cardiopulmonary process. ATED BY: CESAR ROSALES MD DICTATED DATE/TIME: 04/22/251755 SIGNED BY: CESAR ROSALES MD SIGNED DATE/TIME: 04/22/251755 CC: Chest x-ray reviewed CBC reviewed without any significant abnormalities BMP reviewed without any significant abnormalities BMP reviewed-normal Duo nebulizer treatment ordered Solu-Medrol 125 mg IM ordered Patient had improvement in symptoms, well appearing and in no distress prior to discharge Advised to drink plenty of fluids Previous chart visits reviewed Advised to continue medications as prescribed Advised to follow up with PCP in 1-2 days Patient verbalized understanding and agreeable with current plan of care Advised to return to ER immediately if symptoms worsen Images Reviewed?: Images reviewed and evaluated by me Time of 1ST Reevaluation: 18:44 Reevaluation 1ST: N/A Patient Education/Counseling: Diagnosis, Treatment, Prognosis, Need For Follow Up Family Education/Counseling: No Family Present SEPSIS Sepsis Screen Date sepsis recognized/suspect: Apr 22, 2025 Time Sepsis recognized/suspect: 162 Recent Procedure: No On Antibiotic Therapy: No Respiratory Rate >20: No Heart Rate >90: No Temp<36 C (96.8 F) or >38.3 C: No SBP <90 or MAP <65 mmHG: No New Acute Mental Status Change: No Is the patient on CPAP, BIPAP,: No Physician Orders Chest Two Views Routine (04/22/25 17:11) Vital Signs Date Time Temp Pulse Resp B/P (MAP) Pulse Ox O2 Delivery O2 Flow Rate FiO2 04/22/25 17:28 22 22 Room Air* 0 21 04/22/25 16:20 98.2 98 18 178/74 98 98.2 Laboratory Tests Test 04/22/25 17:58 White Blood Count 7.6 10^3/uL (4.4-10.8) Medications Medications Dose Ordered Sig/Gualberto Route Start Time Stop Time Status Last Admin Dose Admin Albuterol 5 mg ONCE ONCE NEB 04/22/25 17:15 04/22/25 17:16 DC 04/22/25 17:28 Ipratropium [place] 0.5 mg ONCE ONCE NEB 04/22/25 17:15 04/22/25 17:16 DC 04/22/25 17:28 Methylprednisolone Sodium Succinate 125 mg ONCE ONCE IM 04/22/25 17:15 04/22/25 17:16 DC 04/22/25 18:51 Departure 1 Departure Time of Disposition: 18:53 Impression: Primary Impression: Acute bronchitis Qualified Codes: J20.9 - Acute bronchitis, unspecified Disposition: 01 HOME / SELF CARE / HOMELESS Condition: Stable e-Prescriptions Prednisone (Prednisone) 20 Mg Tab 20 MG PO BID for 5 Days, #10 TAB 0 Refills Prov: DEREK JACK 04/22/25 Discharged With: Self Critical Care Note Critical Care Time?: No Stability Stability form required: No Heart Score Heart Score: Heart Score Response (Comments) Value History N/A 0 EKG N/A 0 Age N/A 0 Risk Factors N/A 0 Troponin N/A 0 Total 0 DEREK JACK Apr 22, 2025 18:54
[2025-04-22 18:59] VITALS: BP 152/78; PULSE 78; RESP 17; TEMP 97.9; O2SAT 97
== END 2025-04-22 19:00 | disposition home or self-care (01) ==
LOC: ER 16:17
DX: J20.9 Acute bronchitis, unspecified (principal); I10 Essential (primary) hypertension; E11.9 Type 2 diabetes mellitus without complications; E78.5 Hyperlipidemia, unspecified; R06.02 Shortness of breath; J44.9 Chronic obstructive pulmonary disease, unspecified; J45.909 Unspecified asthma, uncomplicated; F41.9 Anxiety disorder, unspecified; K21.9 Gastro-esophageal reflux disease without esophagitis; Z87.440 Personal history of urinary (tract) infections; Z90.49 Acquired absence of other specified parts of digestive tract; Z90.710 Acquired absence of both cervix and uterus; Z79.899 Other long term (current) drug therapy; Z98.890 Other specified postprocedural states
CPT/HCPCS: 36415; 71046; 80048; 83880; 85025; 94640; 96372; 99284; J2919